=== PATIENT | male | born 1940 | race Caucasian/White ===

== ENCOUNTER 2018-06-10 14:11 | Inpatient (IN) | payer MEDICARE ==
[~2018-06-10] VITALS: Ht 177.8 cm; Wt 100.4 kg
[2018-06-10 15:00] VITALS: BP 140/70
[2018-06-10] MEDS ORDERED: CELE200C PO (15:23)
[2018-06-10] MEDS ORDERED: EMPA25TA PO (15:23)
[2018-06-10] MEDS ORDERED: FURO40TA4 PO (15:23)
[2018-06-10] MEDS ORDERED: ASPI325T8 PO (15:23)
[2018-06-10] MEDS ORDERED: GLIM4TAB2 PO (15:23)
[2018-06-10] MEDS ORDERED: ATOR40TA59 PO (15:23)
[2018-06-10] MEDS ORDERED: VALS1TAB8 PO (15:23)
[2018-06-10] MEDS ORDERED: METF500T16 PO (15:23)
[2018-06-10] MEDS: PIPERACILLIN/TAZOBACTAM 3.375 GM in IV NORMAL SALINE 50ML 50 ML IV SCH (17:19)
[2018-06-10] MEDS ORDERED: VANCOMYCIN 2 GM in IV NORMAL SALINE 500ML BAG 500 ML IV ONE (17:30)
[2018-06-10] MEDS: metFORMIN 500 MG TABLET PO SCH (17:42)
[2018-06-10] MEDS ORDERED: NICOTINE 21MG PATCH. TD PRN (18:45)
[2018-06-10 19:00] VITALS: BP 106/49
[2018-06-10 19:03] LABS: BILIRUBIN,URINE NEGATIVE (NEG); CLARITY,URINE CLEAR; COLOR,URINE YELLOW; NITRITE,URINE NEGATIVE (NEG); PROTEIN,URINE NEGATIVE (NEG-TRACE)
[2018-06-10 19:14] LABS: HYALINE CASTS, URINE MANY /HPF; SQUAMOUS EPITHELIAL CELL,UR MANY /LPF
[2018-06-10 19:15] LABS: BACTERIA,URINE 0 /HPF (0-FEW); WBC,URINE 20-40 /HPF (0-4)
[2018-06-10] MEDS: ATORVASTATIN CALCIUM 40 MG TABLET. PO SCH (21:39)
[2018-06-10 22:05] LABS: BASO # 0.1 x10^3/uL (0.0-0.2); BASO % 1 % (0-3); EOS # 0.2 x10^3/uL (0.0-0.7); EOS % 2 % (0-3); HEMATOCRIT 43.1 % (39.0-53.0); HEMOGLOBIN 14.5 g/dL (13.0-17.5); LYMPH # 1.4 x10^3/uL (1.0-4.8); LYMPH % 13 % (24-48); MEAN CORPUSCULAR HEMOGLOBIN 31 pg (25-35); MEAN CORPUSCULAR HGB CONC 34 g/dL (31-37); MEAN CORPUSCULAR VOLUME 91 fL (79-100); MONO % 10 % (0-9); NEUT % 75 % (31-73); PLATELET COUNT 264 x10^3/uL (140-400); RED BLOOD COUNT 4.74 x10^6/uL (4.30-5.70); RED CELL DISTRIBUTION WIDTH 14.2 % (11.5-14.5); WHITE BLOOD COUNT 10.6 x10^3/uL (4.0-11.0)
--- NOTE | 2018-06-10 22:13 | HP ---
ADMIT DATE: 06/10/2018 CHIEF COMPLAINT AND HISTORY OF PRESENT ILLNESS: This 77-year-old white male is well known to me from followup in the office. The patient presented to the office on the day of admission with a right medial foot ulcer with cellulitis extending up at least two-thirds up the mcmullen. He was admitted feeling bad as well as having chills. He was felt to have a diabetic foot infection with cellulitis and needing more attention than p.o. antibiotics and was admitted for the same. PAST MEDICAL HISTORY: Remarkable for COPD, hypertension, hyperlipidemia, diabetes and arthritis. MEDICATIONS: Medications brought with the patient, listed on the computer and have been addressed. ALLERGIES: He has no known drug allergies. SOCIAL HISTORY: He is a smoker. Denies alcohol or drug abuse. He lives at home alone. FAMILY HISTORY: Noncontributory. REVIEW OF SYSTEMS: As mentioned above. PHYSICAL EXAMINATION: GENERAL: He is a well-developed, well-nourished white male, in no acute distress in the office. VITAL SIGNS: Stable. He is afebrile. HEAD, EYES, EARS, NOSE AND THROAT: Remarkable for glasses. NECK: Supple, without lymphadenopathy or thyromegaly. CHEST: Reveals decreased breath sounds, but clear. HEART: Regular rate and rhythm, without S3, S4, or murmur. ABDOMEN: Soft, nontender, without hepatosplenomegaly or mass. EXTREMITIES: Reveal at least 2.5 x 2.5 cm area on his medial foot distally that appears to be a fluctuant, but is closed. His entire foot is red, extending up at least two-thirds up the way of the mcmullen, consistent with cellulitis. NEUROLOGIC: He is intact. IMPRESSION: 1. Diabetic foot infection with fevers, chills and cellulitis. 2. Other problems as listed above. PLAN: The patient has been admitted. He will be placed on IV vancomycin and Zosyn. Blood cultures will be done, if temperatures are elevated. Consults will be in to Surgery, Orthopedic Surgery as well as ID. Labs including CBC, CMP, sed rate and U/A will be checked and the patient will be monitored, managed and treated appropriately. MERLYN CORDOBA MD DR: NATALIA/iván JOB#: [id number] / [id number]
[2018-06-10 22:38] LABS: ALBUMIN 2.5 g/dL (3.4-5.0); ALBUMIN/GLOBULIN RATIO 0.6 (1.0-1.7); CALCIUM 8.7 mg/dL (8.5-10.1); CREATININE 1.8 mg/dL (0.7-1.3); GFR 36.6; POTASSIUM 3.5 mmol/L (3.5-5.1); TOTAL BILIRUBIN 0.6 mg/dL (0.2-1.0); TOTAL PROTEIN 6.9 g/dL (6.4-8.2)
[2018-06-10 23:00] VITALS: BP 123/61
[2018-06-10] MEDS: VANCOMYCIN PER PHARMACY MC PRN (23:14)
--- NOTE | 2018-06-10 23:16 | NUR ---
Pharmacy Vancomycin Dosing Note S:Consulted to monitor and dose vancomycin started 06/10/18. O:EVONNE DRUMMOND is a 77 year old M with RT FOOT NECROSIS . Height: 5 feet, 10 inches Weight: 91.574871 kg [place] Body Weight: Adjusted Body Weight: Dosing Weight: Actual Other Antibiotics: ZOSYN 3.375GM IV Q6H LABS: Last BUN: 44 Last Creatinine: 1.8 Creatinine Clearance: 37.8 mL/min Last WBC: 10.6 Last Procalcitonin: Tmax (past 24 hours): Microbiology: I/O: Drug Levels: Last level: on at Last dose given at Vancomycin Dosing: Loading Dose: 2000 mg x1 06/10/18 1812 Dosing Weight: Actual Target Trough: 10-20 A: Based on: Actual Wt and CrCl P: 1. 06/11/18 1800 Vancomycin 1500 mg IV q24h 2. Follow up Trough level on 06/12/18 at 1730 3. Pharmacy will continue to monitor, follow and adjust therapy as needed. DESEAN KNIGHT RPH, 06/10/18 2316 Signed: 06/10/18 at 2317 by DESEAN KNIGHT RPH PHA
[2018-06-11] MEDS: PIPERACILLIN/TAZOBACTAM 3.375 GM in IV NORMAL SALINE 50ML 50 ML IV SCH ×5 (00:03→23:27)
[2018-06-11 03:00] VITALS: BP 119/74
[2018-06-11 06:16] LABS: CREATININE 1.8 mg/dL (0.7-1.3); GFR 36.6
[2018-06-11 07:00] VITALS: BP 122/49
[2018-06-11] MEDS: NON FORMULARY ITEM (Empagliflozin (Jardiance) 25 MG) PO SCH (08:02)
[2018-06-11] MEDS: ASPIRIN 325 MG TABLET PO SCH (08:03)
[2018-06-11] MEDS: GLIMEPIRIDE 2 MG TABLET. PO SCH (08:03)
[2018-06-11] MEDS: FUROSEMIDE 40 MG TABLET. PO SCH (08:04)
[2018-06-11] MEDS: CELECOXIB 100 MG CAPSULE. PO SCH (08:04)
[2018-06-11] MEDS: metFORMIN 500 MG TABLET PO SCH ×2 (08:04→17:05)
[2018-06-11] MEDS: LOSARTAN POTASSIUM 50 MG TABLET. PO SCH (09:00)
[2018-06-11] MEDS ORDERED: HYDROCHLOROTHIAZIDE PO SCH (09:00)
[2018-06-11] MEDS ORDERED: VALSARTAN PO SCH (09:00)
--- NOTE | 2018-06-11 09:19 | PDOC2 ---
CONSULT Date of Consult Date of Consult DATE: 06/11/18 TIME: 09:15 Reason for Consult Reason for Consult: Diabetic foot ulcer, right foot Referring Physician Referring Physician: James Identification/Chief Complaint Chief Complaint Right foot and ankle pain Source Source: Chart review, Patient History of Present Illness Reason for Visit: Patient is a 77-year-old diabetic who tells me that over the past 2-3 weeks he has noticed a wound over the medial right forefoot that has subsequently developed some swelling and redness tracking proximally to the distal third of his tibial region. He has not felt any fevers or chills. He tells me he has not had any foot wounds in the past. He does tell me that his toes to get sore at night and that he has some pain in his leg with walking, right greater than left. He does have some neuropathy present at bilateral forefeet, but tells me his sensation is otherwise normal. He has not noticed much drainage from the wound. He cannot think of any antecedent trauma or injuries that precipitated this. He has not been feeling sick, no nausea, no vomiting, no fevers, no chills Current Medications Current Medications Current Medications Aspirin (Kaley Aspirin) 325 mg DAILY PO Last administered on 06/11/18at 08:03; Start 06/11/18 at 09:00 Atorvastatin Calcium (Lipitor) 40 mg HS PO Last administered on 06/10/18at 21:39 ; Start 06/10/18 at 21:00 Furosemide (Lasix) 40 mg DAILY PO Last administered on 06/11/18at 08:04; Start at 09:00 Celecoxib (CeleBREX) 200 mg DAILY PO Last administered on 06/11/18at 08:04; Start 06/11/18 at 09:00 Non-Formulary Medication (Empagliflozin (Jardiance)) 25 mg DAILY PO ; Start 06/11 at 09:00; Status UNV Glimepiride (Amaryl) 4 mg DAILY PO Last administered on 06/11/18at 08:03; Start 06/11/18 at 09:00 Metformin HCl (Glucophage) 500 mg BIDWMEALS PO Last administered on 06/11/18at 08 :04; Start 06/10/18 at 17:30 Non-Formulary Medication (Valsartan/ Hydrochlorothiazide (Diovan Hct 160-12.5 Mg Tab)) 1 each DAILY PO ; Start 06/11/18 at 09:00; Status UNV Piperacillin Sod/ Tazobactam Sod 3.375 gm/Sodium Chloride 50 ml @ 100 mls/hr Q6HRS IV Last administered on 06/11/18at 06:58; Start 06/10/18 at 17:30 Vancomycin HCl (Vanco Per Pharmacy) 1 each PRN DAILY PRN MC SEE COMMENTS Last administered on 06/10/18at 23:14; Start 06/10/18 at 16:45 Vancomycin HCl 2 gm/Sodium Chloride 500 ml @ 250 mls/hr 1X ONCE IV Last administered on 06/10/18at 18:12; Start 06/10/18 at 17:30; Stop 06/10/18 at 19:29; Status DC Losartan Potassium (Cozaar) 100 mg DAILY PO ; Start 06/11/18 at 09:00 Hydrochlorothiazide (Microzide) 12.5 mg DAILY PO ; Start 06/11/18 at 09:00 Nicotine (Nicoderm Cq 21mg) 1 patch PRN DAILY PRN TD SMOKING CESSATION; Start 06/10/18 at 18:45 Vancomycin HCl 1.5 gm/Sodium Chloride 500 ml @ 250 mls/hr Q24H IV ; Start at 18:00 Vancomycin HCl (Vancomycin Trough Level) 1 each 1X ONCE MC ; Start 06/12/18 at 17:30; Stop 06/12/18 at 17:31 Active Scripts Active Reported Aspirin 325 Mg Tablet 325 Mg PO DAILY Celebrex (Celecoxib) 200 Mg Capsule 200 Mg PO DAILY 30 Days Furosemide 40 Mg Tablet 40 Mg PO DAILY Diovan Hct 160-12.5 Mg Tab (Valsartan/Hydrochlorothiazide) 1 Each Tablet 1 Each PO DAILY Atorvastatin Calcium 40 Mg Tablet 40 Mg PO HS Jardiance (Empagliflozin) 25 Mg Tablet 25 Mg PO DAILY Glimepiride 4 Mg Tablet 4 Mg PO DAILY Metformin Hcl 500 Mg Tablet 500 Mg PO BIDWMEALS Allergies Allergies: Coded Allergies: No Known Drug Allergies (Unverified , 06/10/18) ROS General: No: Chills, Night Sweats, Fatigue, Malaise, Appetite, Other PSYCHOLOGICAL ROS: No: Anxiety, Behavioral Disorder, Concentration difficultie , Decreased libido, Depression, Disorientation, Hallucinations, Hostility, Irritablity, Memory difficulties, Mood Swings, Obsessive thoughts, Physical abuse, Sexual abuse, Sleep disturbances, Suicidal ideation, Other Eyes: No Blurry vision, No Decreased vision, No Double vision, No Dry eyes, No Excessive tearing, No Eye Pain, No Itchy Eyes, No Loss of vision, No Photophobia , No Scotomata, No Uses contacts, No Uses glasses, No Other HEENT: No: Heacaches, Visual Changes, Hearing change, Nasal congestion, Nasal discharge, Oral lesions, Sinus pain, Sore Throat, Epistaxis, Sneezing, Snoring, Tinnitus, Vertigo, Vocal changes, Other ALLERGY AND IMMUNOLOGY: No: Hives, Insect Bite Sensitivity, Itchy/Watery Eyes, Nasal Congestion, Post Nasal Drip, Seasonal Allergies, Other Hematological and Lymphatic: No: Bleeding Problems, Blood Clots, Blood Transfusions, Brusing, Night Sweats, Pallor, Swollen Lymph Nodes, Other Respiratory: No: Cough, Hemoptysis, Orthopnea, Pleuritic Pain, Shortness of breath, SOB with excertion, Sputum Changes, Stridor, Tachypnea, Wheezing, Other Cardiovascular: No Chest Pain, No Palpitations, No Orthopnea, No Paroxysmal Noc. Dyspnea, No Edema, No Lt Headedness, No Other Gastrointestinal: No Nausea, No Vomiting, No Abdominal Pain, No Diarrhea, No Constipation, No Melena, No Hematochezia, No Other Genitourinary: No Dysuria, No Frequency, No Incontinence, No Hematuria, No Retention, No Discharge, No Urgency, No Pain, No Flank Pain, No Other, No , No , No , No , No , No , No Musculoskeletal: Yes Joint Swelling Neurological: Yes Numbness/Tingling Physical Exam General: Alert, Oriented X3, No acute distress HEENT: Atraumatic, EOMI Lungs: Other (respirations aren't labored with symmetric chest rise.) Heart: Regular rate Abdomen: Soft, No tenderness Extremities: Other (edema and cellulitis are present from the medial and dorsal aspect of his foot up to the anterior medial aspect of his distal third tibial region.) Neuro: Normal speech, Strength at 5/5 X4 ext, Other (decreased sensation to light touch bilateral forefeet) MUSCULOSKELETAL: Other (examination of his bilateral lower extremities reveals atrophic changes at his toes. He can wiggle his toes. Right lower extremity has the edema and cellulitis is noted above. He has approximately a 2 x 3 cm wound, unable to probe to bone, surrounding erythema and edema, no obvious fluctuant areas. No drainage noted. I am not able to palpate dorsalis pedis pulse on this side. This could be secondary to the edema.) Vitals VITALS Vital Signs Date Time Temp Pulse Resp B/P (MAP) Pulse Ox O2 Delivery O2 Flow Rate FiO2 06/11/18 07:00 98.5 78 18 122/49 (73) 92 Room Air 98.5 Labs Labs Laboratory Tests Test 06/10/18 16:54 06/10/18 18:40 06/10/18 20:45 06/10/18 21:45 Glucose (Fingerstick) 203 mg/dL (70-99) 209 mg/dL (70-99) Urine Collection Type Unknown Urine Color Yellow Urine Clarity Clear Urine pH 5.0 Urine Specific [place] 1.020 Urine Protein Negative mg/dL (NEG-TRACE) Urine Glucose (UA) >=1000 mg/dL (NEG) Urine Ketones (Stick) Negative mg/dL (NEG) Urine Blood Negative (NEG) Urine Nitrite Negative (NEG) Urine Bilirubin Negative (NEG) Urine Urobilinogen Dipstick 1.0 mg/dL (0.2 mg/dL) Urine Leukocyte Esterase Negative (NEG) Urine RBC 3-5 /HPF (0-2) Urine WBC 20-40 /HPF (0-4) Urine Squamous Epithelial Cells Many /LPF Urine Transitional Epithelial Cells Few /LPF Urine Renal Epithelial Cells Occ /LPF Urine Bacteria 0 /HPF (0-FEW) Urine Hyaline Casts Many /HPF Urine Mucus Mod /LPF White Blood Count 10.6 x10^3/uL (4.0-11.0) Red Blood Count 4.74 x10^6/uL (4.30-5.70) Hemoglobin 14.5 g/dL (13.0-17.5) Hematocrit 43.1 % (39.0-53.0) Mean Corpuscular Volume 91 fL (79-100) Mean Corpuscular Hemoglobin 31 pg (25-35) Mean Corpuscular Hemoglobin Concent 34 g/dL (31-37) Red Cell Distribution Width 14.2 % (11.5-14.5) Platelet Count 264 x10^3/uL (140-400) Neutrophils (%) (Auto) 75 % (31-73) Lymphocytes (%) (Auto) 13 % (24-48) Monocytes (%) (Auto) 10 % (0-9) Eosinophils (%) (Auto) 2 % (0-3) Basophils (%) (Auto) 1 % (0-3) Neutrophils # (Auto) 8.0 x10^3uL (1.8-7.7) Lymphocytes # (Auto) 1.4 x10^3/uL (1.0-4.8) Monocytes # (Auto) 1.0 x10^3/uL (0.0-1.1) Eosinophils # (Auto) 0.2 x10^3/uL (0.0-0.7) Basophils # (Auto) 0.1 x10^3/uL (0.0-0.2) Erythrocyte Sedimentation Rate 54 (0-15) Sodium Level 135 mmol/L (136-145) Potassium Level 3.5 mmol/L (3.5-5.1) Chloride Level 99 mmol/L (98-107) Carbon Dioxide Level 24 mmol/L (21-32) Anion Gap 12 (6-14) Blood Urea Nitrogen 44 mg/dL (8-26) Creatinine 1.8 mg/dL (0.7-1.3) Estimated GFR (Cockcroft-Gault) 36.6 BUN/Creatinine Ratio 24 (6-20) Glucose Level 181 mg/dL (70-99) Calcium Level 8.7 mg/dL (8.5-10.1) Total Bilirubin 0.6 mg/dL (0.2-1.0) Aspartate Amino Transf (AST/SGOT) 12 U/L (15-37) Alanine Aminotransferase (ALT/SGPT) 15 U/L (16-63) Alkaline Phosphatase 98 U/L (46-116) Total Protein 6.9 g/dL (6.4-8.2) Albumin 2.5 g/dL (3.4-5.0) Albumin/Globulin Ratio 0.6 (1.0-1.7) Test 06/11/18 04:45 06/11/18 08:03 Blood Urea Nitrogen 41 mg/dL (8-26) Creatinine 1.8 mg/dL (0.7-1.3) Estimated GFR (Cockcroft-Gault) 36.6 Procalcitonin < 0.10 ng/mL (0.00-0.10) Glucose (Fingerstick) 108 mg/dL (70-99) Laboratory Tests Test 06/10/18 16:54 06/10/18 18:40 06/10/18 20:45 06/10/18 21:45 Glucose (Fingerstick) 203 mg/dL (70-99) 209 mg/dL (70-99) Urine Collection Type Unknown Urine Color Yellow Urine Clarity Clear Urine pH 5.0 Urine Specific [place] 1.020 Urine Protein Negative mg/dL (NEG-TRACE) Urine Glucose (UA) >=1000 mg/dL (NEG) Urine Ketones (Stick) Negative mg/dL (NEG) Urine Blood Negative (NEG) Urine Nitrite Negative (NEG) Urine Bilirubin Negative (NEG) Urine Urobilinogen Dipstick 1.0 mg/dL (0.2 mg/dL) Urine Leukocyte Esterase Negative (NEG) Urine RBC 3-5 /HPF (0-2) Urine WBC 20-40 /HPF (0-4) Urine Squamous Epithelial Cells Many /LPF Urine Transitional Epithelial Cells Few /LPF Urine Renal Epithelial Cells Occ /LPF Urine Bacteria 0 /HPF (0-FEW) Urine Hyaline Casts Many /HPF Urine Mucus Mod /LPF White Blood Count 10.6 x10^3/uL (4.0-11.0) Red Blood Count 4.74 x10^6/uL (4.30-5.70) Hemoglobin 14.5 g/dL (13.0-17.5) Hematocrit 43.1 % (39.0-53.0) Mean Corpuscular Volume 91 fL (79-100) Mean Corpuscular Hemoglobin 31 pg (25-35) Mean Corpuscular Hemoglobin Concent 34 g/dL (31-37) Red Cell Distribution Width 14.2 % (11.5-14.5) Platelet Count 264 x10^3/uL (140-400) Neutrophils (%) (Auto) 75 % (31-73) Lymphocytes (%) (Auto) 13 % (24-48) Monocytes (%) (Auto) 10 % (0-9) Eosinophils (%) (Auto) 2 % (0-3) Basophils (%) (Auto) 1 % (0-3) Neutrophils # (Auto) 8.0 x10^3uL (1.8-7.7) Lymphocytes # (Auto) 1.4 x10^3/uL (1.0-4.8) Monocytes # (Auto) 1.0 x10^3/uL (0.0-1.1) Eosinophils # (Auto) 0.2 x10^3/uL (0.0-0.7) Basophils # (Auto) 0.1 x10^3/uL (0.0-0.2) Erythrocyte Sedimentation Rate 54 (0-15) Sodium Level 135 mmol/L (136-145) Potassium Level 3.5 mmol/L (3.5-5.1) Chloride Level 99 mmol/L (98-107) Carbon Dioxide Level 24 mmol/L (21-32) Anion Gap 12 (6-14) Blood Urea Nitrogen 44 mg/dL (8-26) Creatinine 1.8 mg/dL (0.7-1.3) Estimated GFR (Cockcroft-Gault) 36.6 BUN/Creatinine Ratio 24 (6-20) Glucose Level 181 mg/dL (70-99) Calcium Level 8.7 mg/dL (8.5-10.1) Total Bilirubin 0.6 mg/dL (0.2-1.0) Aspartate Amino Transf (AST/SGOT) 12 U/L (15-37) Alanine Aminotransferase (ALT/SGPT) 15 U/L (16-63) Alkaline Phosphatase 98 U/L (46-116) Total Protein 6.9 g/dL (6.4-8.2) Albumin 2.5 g/dL (3.4-5.0) Albumin/Globulin Ratio 0.6 (1.0-1.7) Test 06/11/18 04:45 06/11/18 08:03 Blood Urea Nitrogen 41 mg/dL (8-26) Creatinine 1.8 mg/dL (0.7-1.3) Estimated GFR (Cockcroft-Gault) 36.6 Procalcitonin < 0.10 ng/mL (0.00-0.10) Glucose (Fingerstick) 108 mg/dL (70-99) Assessment/Plan Assessment/Plan I will order x-rays, possibly an MRI to investigate for osteomyelitis. I think he also needs a vascular workup done. Pending the results of the ABIs have ordered, we may need to ask vascular surgery to evaluate him. Tentatively, I will perform an irrigation and debridement, likely wound VAC, tomorrow morning. KATTY MANSFIELD II, MD Jun 11, 2018 09:19
--- NOTE | 2018-06-11 10:35 | PDOC ---
Infectious Disease Note Vital Sign Vital Signs Vital Signs Date Time Temp Pulse Resp B/P (MAP) Pulse Ox O2 Delivery O2 Flow Rate FiO2 06/11/18 08:00 Room Air 06/11/18 07:00 98.5 78 18 122/49 (73) 92 98.5 Labs Lab Laboratory Tests Test 06/10/18 16:54 06/10/18 18:40 06/10/18 20:45 06/10/18 21:45 Glucose (Fingerstick) 203 mg/dL (70-99) 209 mg/dL (70-99) Urine Collection Type Unknown Urine Color Yellow Urine Clarity Clear Urine pH 5.0 Urine Specific [place] 1.020 Urine Protein Negative mg/dL (NEG-TRACE) Urine Glucose (UA) >=1000 mg/dL (NEG) Urine Ketones (Stick) Negative mg/dL (NEG) Urine Blood Negative (NEG) Urine Nitrite Negative (NEG) Urine Bilirubin Negative (NEG) Urine Urobilinogen Dipstick 1.0 mg/dL (0.2 mg/dL) Urine Leukocyte Esterase Negative (NEG) Urine RBC 3-5 /HPF (0-2) Urine WBC 20-40 /HPF (0-4) Urine Squamous Epithelial Cells Many /LPF Urine Transitional Epithelial Cells Few /LPF Urine Renal Epithelial Cells Occ /LPF Urine Bacteria 0 /HPF (0-FEW) Urine Hyaline Casts Many /HPF Urine Mucus Mod /LPF White Blood Count 10.6 x10^3/uL (4.0-11.0) Red Blood Count 4.74 x10^6/uL (4.30-5.70) Hemoglobin 14.5 g/dL (13.0-17.5) Hematocrit 43.1 % (39.0-53.0) Mean Corpuscular Volume 91 fL (79-100) Mean Corpuscular Hemoglobin 31 pg (25-35) Mean Corpuscular Hemoglobin Concent 34 g/dL (31-37) Red Cell Distribution Width 14.2 % (11.5-14.5) Platelet Count 264 x10^3/uL (140-400) Neutrophils (%) (Auto) 75 % (31-73) Lymphocytes (%) (Auto) 13 % (24-48) Monocytes (%) (Auto) 10 % (0-9) Eosinophils (%) (Auto) 2 % (0-3) Basophils (%) (Auto) 1 % (0-3) Neutrophils # (Auto) 8.0 x10^3uL (1.8-7.7) Lymphocytes # (Auto) 1.4 x10^3/uL (1.0-4.8) Monocytes # (Auto) 1.0 x10^3/uL (0.0-1.1) Eosinophils # (Auto) 0.2 x10^3/uL (0.0-0.7) Basophils # (Auto) 0.1 x10^3/uL (0.0-0.2) Erythrocyte Sedimentation Rate 54 (0-15) Sodium Level 135 mmol/L (136-145) Potassium Level 3.5 mmol/L (3.5-5.1) Chloride Level 99 mmol/L (98-107) Carbon Dioxide Level 24 mmol/L (21-32) Anion Gap 12 (6-14) Blood Urea Nitrogen 44 mg/dL (8-26) Creatinine 1.8 mg/dL (0.7-1.3) Estimated GFR (Cockcroft-Gault) 36.6 BUN/Creatinine Ratio 24 (6-20) Glucose Level 181 mg/dL (70-99) Calcium Level 8.7 mg/dL (8.5-10.1) Total Bilirubin 0.6 mg/dL (0.2-1.0) Aspartate Amino Transf (AST/SGOT) 12 U/L (15-37) Alanine Aminotransferase (ALT/SGPT) 15 U/L (16-63) Alkaline Phosphatase 98 U/L (46-116) Total Protein 6.9 g/dL (6.4-8.2) Albumin 2.5 g/dL (3.4-5.0) Albumin/Globulin Ratio 0.6 (1.0-1.7) Test 06/11/18 04:45 06/11/18 08:03 Blood Urea Nitrogen 41 mg/dL (8-26) Creatinine 1.8 mg/dL (0.7-1.3) Estimated GFR (Cockcroft-Gault) 36.6 Procalcitonin < 0.10 ng/mL (0.00-0.10) Glucose (Fingerstick) 108 mg/dL (70-99) Objective Assessment Diabetic ulcer right foot with cellulitis , ? depth Diabetes with peripheral neuropathy Renal insufficiency Tobacco dependency HLD HTN COPD PAD Plan Plan of Care vanc and Zosyn Monitor labs/temp/renal function closely Local wound care I and D per ortho tomorrow, request cultures f/u x-ray and SARTHAK arterial studies Supportive care Vascular consulted D/w RN Thank you [id number] Patient seen, examined, I agree with above. Assessment and plan was coformulated with STRATEGIC ACCOUNT DIRECTOR. CHRISTIAN CHOPRA APRN Jun 11, 2018 10:35 GABRIELA HERNANDEZ MD Jun 11, 2018 15:59
[2018-06-11 11:00] VITALS: BP 112/48
[2018-06-11] MEDS: hydroCHLOROthiazide 12.5 MG CAPSULE PO SCH (11:53)
--- NOTE | 2018-06-11 12:37 | RAD ---
Bilateral lower extremity arterial Doppler ultrasound HISTORY: rt foot wound TECHNIQUE: Color Doppler, grayscale and duplex analysis performed of the right and left lower extremity arterial structures, from the common femoral artery through the runoff vessels. COMPARISON: None are available All velocity measurements are in centimeters per second. Right leg: Right common femoral artery is patent with peak systolic velocity of 167. Flow is not documented in the right superficial femoral artery compatible with occlusion. Popliteal artery flow can't be documented with a peak systolic velocity of 20. Anterior tibial artery and dorsalis pedis arteries demonstrate trace amount of flow, with velocities of 10 and 5 respectively. The posterior tibial artery also appears occluded. Monophasic waveforms are seen throughout the patent vessels. Left peroneal artery not visualized. Left leg: Monophasic waveforms are identified throughout. No evidence of occlusion, left. Velocities in the femoropopliteal arteries range from 44 through 127. Deep femoral artery velocity 161. Velocities at the popliteal artery and calf range from 17 through 44. Right peroneal artery not visualized. IMPRESSION: 1. 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 2. Diffuse monophasic waveforms compatible with atherosclerotic disease. Electronically signed by: Delvin Mosqeura MD (06/11/2018 12:34 PM) [facility]
[2018-06-11] MEDS: VANCOMYCIN PER PHARMACY MC PRN (13:46)
--- NOTE | 2018-06-11 13:56 | NUR ---
SW following pt for anticipated dc needs. Chart reviewed. Pt lives at home alone. Sx, Orthopedic Sx and ID consulted. No discharge recommendations noted at this time. SW will continue to assess discharge needs.
[2018-06-11 15:00] VITALS: BP 130/61
--- NOTE | 2018-06-11 15:21 | RAD ---
EXAM: Right foot, 3 views. HISTORY: Plantar foot wound. COMPARISON: None. FINDINGS: 3 views of the right foot are obtained. There is no fracture, dislocation or subluxation. There is no radiographic evidence of osteomyelitis. There is slight lucency at the medial base of the fifth proximal phalanx on a single projection. However, the cortex appears to be intact. There is a tiny plantar spur. IMPRESSION: 1. No acute osseous finding. 2. No convincing radiographic evidence of osteomyelitis. Note is made that MRI may be useful if there is concern for radiographic occult osteolysis. Electronically signed by: Mayda Morales MD (06/11/2018 3:18 PM) [facility]
[2018-06-11] MEDS ORDERED: VANCOMYCIN 1.5 GM in IV NORMAL SALINE 500ML BAG 500 ML IV SCH (18:00)
[2018-06-11 19:00] VITALS: BP 120/55
[2018-06-11] MEDS: ATORVASTATIN CALCIUM 40 MG TABLET. PO SCH (21:24)
--- NOTE | 2018-06-11 21:54 | CONS ---
DATE OF CONSULTATION: 06/11/2018 REFERRING PHYSICIAN: Dr. Ramirez. REASON FOR CONSULTATION: Diabetic foot wound. HISTORY OF PRESENT ILLNESS: This patient is a 77-year-old male with a PMH of diabetes with peripheral neuropathy, who about 2 weeks ago explains this his power went out. During that time, he remained bundled up just to keep warm. After 3 days, he took his socks off and noticed that on the medial side of his right foot was white with black spot. He later developed swelling, pain and redness of his foot extending up his lower leg. He denies fevers, chills, sweats or body aches. He denies trauma or tight fitting shoes, though he says his socks may has been a bit too tight. He normally wears moccasins. He denies pets and has carpet. On admission, he was afebrile with a normal white blood cell count and a sed rate of 54. X-ray of the right foot has been ordered along with SARTHAK arterial studies. He was evaluated by Dr. North with plans for an irrigation and debridement tomorrow. He is currently on vancomycin and Zosyn. PAST MEDICAL HISTORY: Diabetes mellitus, peripheral neuropathy, hyperlipidemia, COPD, and hypertension. FAMILY HISTORY: Positive for diabetes. SOCIAL HISTORY: The patient lives at home. He does not have any pets. He is a current smoker. ALLERGIES: No known drug allergies. MEDICATIONS: Vancomycin, Zosyn. Other medications are available and have been reviewed on the JUN. REVIEW OF SYSTEMS: Per HPI. Otherwise all other review of systems are negative. PHYSICAL EXAMINATION: VITAL SIGNS: Temperature 98.5, blood pressure 122/49, heart rate 78, respiratory rate 18, pulse oximetry is 92% on room air. BMI 28. GENERAL: The patient is resting quietly, appears comfortable. HEENT: Normal conjunctivae. Oral cavity: Pharynx pink and moist. LUNGS: Clear to auscultation. HEART: S1, S2. ABDOMEN: Nondistended, soft and nontender with bowel sounds present. EXTREMITIES: Unremarkable except right foot swollen and red extending to mid ankle. He has a callus medial MT area with black eschar in the center. DP difficult to palpate. SKIN: Warm without rash. NEUROLOGIC: Arouses easily to name and responds appropriately. LABORATORY DATA: Recent WBC 10.6, hemoglobin 14.5, platelets 264,000. Sed rate 54. Sodium 135, potassium 3.5, BUN 41, creatinine 1.8, glucose 181, total bilirubin 0.6, AST 12, ALT 15, albumin 2.5. Procalcitonin less than 0.10. Urinalysis unremarkable for infection. X-ray right foot and SARTHAK arterial study pending. IMPRESSION: 1. Diabetic ulcer, right foot with cellulitis. 2. Diabetes with peripheral neuropathy. 3. Renal insufficiency. 4. Tobacco dependency. 5. Hyperlipidemia. 6. Hypertension. 7. Chronic obstructive pulmonary disease. 8. PAD PLAN: Continue vancomycin and Zosyn for now. Monitor labs, temperature and renal function closely. Local wound care. He is scheduled to have irrigation and debridement tomorrow per Dr. North.Vascular has been consulted. Supportive care. Discussed with nursing. Thank you, Dr. Ramirez, for asking us to participate in this patient's care. Should you have further questions or concerns, please call. GABRIELA HERNANDEZ MD DR: YUDITH/iván JOB#: [id number] / [id number] ANA
[2018-06-11 22:50] VITALS: BP 120/52
[2018-06-12 03:00] VITALS: BP 122/49
--- NOTE | 2018-06-12 03:10 | PN ---
DATE: 06/11/2018 SUBJECTIVE: The patient is awake, alert, wishes that he could be at home. Denies any specific complaints. OBJECTIVE: Vital signs are stable. He has been afebrile since admission. LABORATORY DATA: White count on admission is 10,600 with left shift. Chemistries reveal a creatinine of 1.8, which I believe is higher than the office, which I will have to check. Albumin is 2.5. Procalcitonin is less than 0.10. Sugars have been decent since admission. Sed rate is elevated at 54. Urinalysis shows number of white cells, but no bacteria and leukocyte esterase and nitrite negative. PHYSICAL EXAMINATION: CHEST: Clear. HEART: Regular. ABDOMEN: Benign. EXTREMITIES: Leg is definitely less swollen, less red. Still has medially a callus with likely underlying abscess. Ortho has seen him and ordered arterial Dopplers as well as plain films of the right foot, which are pending at this point in time. IMPRESSION: Diabetic ulcer, right foot with cellulitis; peripheral neuropathy; renal insufficiency; hypertension; chronic obstructive pulmonary disease; hyperlipidemia; diabetes. PLAN: Continue vancomycin and Zosyn. ID and Ortho consult are in. Blood cultures have been added for temperature greater than 100.5. I and D likely to happen by Ortho. X-ray and arterial Doppler studies pending at this point in time to evaluate for PAD and osteomyelitis. MERLYN CORDOBA MD DR: NATALIA/iván JOB#: [id number] / [id number]
[2018-06-12] MEDS: PIPERACILLIN/TAZOBACTAM 3.375 GM in IV NORMAL SALINE 50ML 50 ML IV SCH ×3 (05:15→17:24)
[2018-06-12 06:06] LABS: GFR 32.4
[2018-06-12 07:00] VITALS: BP 111/27
[2018-06-12] MEDS ORDERED: fentaNYL PF VIAL 100 MCG/2 ML VIAL IV PRN ×2 (07:00)
[2018-06-12] MEDS ORDERED: PROCHLORPERAZINE 10 MG/2 ML VIAL. IV PRN (07:00)
[2018-06-12] MEDS ORDERED: IV RINGERS,LACTATED 1000ML 1,000 ML IV SCH (07:00)
[2018-06-12] MEDS ORDERED: ONDANSETRON PF 4 MG/2 ML VIAL. IV PRN (07:00)
[2018-06-12] MEDS ORDERED: LIDOCAINE 1% PF 2 ML VIAL. ID PRN (07:00)
[2018-06-12] MEDS ORDERED: MORPHINE SULFATE 2 MG/ML VIAL. IV PRN (07:00)
[2018-06-12] MEDS ORDERED: HYDROmorphone 2 MG/ML VIAL IV PRN (07:00)
[2018-06-12] MEDS: NON FORMULARY ITEM (Empagliflozin (Jardiance) 25 MG) PO SCH (07:05)
[2018-06-12] MEDS ORDERED: PROPOFOL 20 ML IV ONE (07:48)
[2018-06-12] MEDS ORDERED: LIDOCAINE 2% PF 5 ML VIAL. ONE (07:48)
[2018-06-12] MEDS ORDERED: fentaNYL PF VIAL 100 MCG/2 ML VIAL ONE (08:11)
--- NOTE | 2018-06-12 08:12 | PDOC4 ---
Operative Note Operative Note Date of procedure: 06/12/2018 Surgeon: Julio Cesar Mansfield Preoperative diagnosis: Right foot wound with cellulitis Postoperative diagnosis: Same Procedure performed: #1 irrigation and debridement, excisional, skin and subcutaneous tissue, right foot wound #2 application of wound VAC to wound about 25 cm Anesthesia: Gen. Findings: Necrotic skin, minimal bleeding from peripheral tissue after excisional debridement, the wound tracked under his first MTP joint to his first webspace, there was really no gross purulence here though. The wound did not go all the way down to bone. Blood loss: 5 mL Specimens: Swabs sent for culture, tissue sent for culture Complications: None Reason for procedure: Patient is a pleasant 77-year-old woman who noticed a foot wound that has been worsening acutely over the past couple weeks with erythema spreading proximally. I was asked to see him in consultation regarding this. Please see my inpatient consult note. Because of the cellulitic changes, edema, and wound we had a discussion of the risks, benefits, and alternatives to the above procedure. As part of his workup, I discussed with him that if vascular surgery would also need to evaluate him for his peripheral vascular disease. Description of procedure: Patient was greeted in the preoperative area by myself for the correct extremity was verified and marked. He is taken back to the operative suite and his antibiotics were started as brought back. Once in the operative room, he was transferred gently supine to the operating table and secured to the bed with all pressure points padded. Underwent successful induction of a general anesthetic. The right lower extremity was then prepped and draped in our usual sterile fashion using Betadine paint. We conducted our standard preoperative timeout. I then began the procedure by using a Rominger to remove the callused skin surrounding the wound to more fully appreciated. I then used a combination of scalpel and Rominger to debride the necrotic appearing skin and some of the underlying subcutaneous tissue. I explored the wound with a hemostat it did not track dorsally or proximally or into his plantar foot. It did track as above to his first webspace. I then irrigated the wound out, took my cultures, and then removed a little bit more necrotic tissue after irrigation. I follow this with irrigating everything out again. The foot was then dried and I fashioned a wound VAC to include the small area between his first webspace. I placed a small VAC sponge here followed by a second one over the majority of the bone. I created a VAC sponge tunnel on his skin to the dorsum of his foot and connected this to the wound VAC. It had a good seal. Patient was then awakened from anesthesia and transferred gently supine to the recovery room cart and taken to PACU in a stable and extubated condition. Postoperative plan is to readmitted to the floor. Antibiotics per infectious disease. I recommend nonweightbearing right lower extremity. We will await vascular surgery evaluation to see if there is any interventions they can offer this patient. JULIO CESAR MANSFIELD II, MD Jun 12, 2018 08:12
[2018-06-12] MEDS ORDERED: SEVOFLURANE 16 TO 30 MINUTES. IH ONE (08:20)
[2018-06-12] MEDS ORDERED: DEXAMETHASONE SOD PHOS 20 MG/5 ML VIAL. ONE (08:20)
[2018-06-12] MEDS ORDERED: ONDANSETRON PF 4 MG/2 ML VIAL. ONE (08:20)
[2018-06-12] MEDS: hydroCHLOROthiazide 12.5 MG CAPSULE PO SCH (09:00)
[2018-06-12] MEDS: FUROSEMIDE 40 MG TABLET. PO SCH (09:00)
[2018-06-12] MEDS: LOSARTAN POTASSIUM 50 MG TABLET. PO SCH (09:00)
[2018-06-12] MEDS: metFORMIN 500 MG TABLET PO SCH ×2 (09:45→17:24)
[2018-06-12] MEDS: CELECOXIB 100 MG CAPSULE. PO SCH (09:45)
[2018-06-12] MEDS: ASPIRIN 325 MG TABLET PO SCH (09:46)
[2018-06-12] MEDS: GLIMEPIRIDE 2 MG TABLET. PO SCH (09:46)
--- NOTE | 2018-06-12 10:31 | PDOC ---
Infectious Disease Note Subjective Subjective s/p I and D this morning Pain controlled Denies N/V/F/C/SOA ROS ROS per HPI Vital Sign Vital Signs Vital Signs Date Time Temp Pulse Resp B/P (MAP) Pulse Ox O2 Delivery O2 Flow Rate FiO2 06/12/18 09:15 98.8 70 18 99/48 95 Nasal Cannula 3 98.8 Physical Exam PHYSICAL EXAM GENERAL: Propped up in bed, alert, eating HEENT: Normal conjunctivae. Oral cavity: Pharynx pink and moist. LUNGS: Clear to auscultation. HEART: S1, S2. ABDOMEN: Nondistended, soft and nontender with bowel sounds present. EXTREMITIES: Unremarkable except right foot swollen and red extending to mid ankle. Wound vac in place SKIN: Warm without rash. NEUROLOGIC: Alert, responds appropriately. PIV Labs Lab Laboratory Tests Test 06/11/18 11:54 06/11/18 17:03 06/11/18 20:39 06/12/18 05:00 Glucose (Fingerstick) 173 mg/dL (70-99) 206 mg/dL (70-99) 185 mg/dL (70-99) Creatinine 2.0 mg/dL (0.7-1.3) Estimated GFR (Cockcroft-Gault) 32.4 Test 06/12/18 07:31 06/12/18 08:56 Glucose (Fingerstick) 124 mg/dL (70-99) 126 mg/dL (70-99) Objective Assessment Diabetic ulcer right foot with cellulitis, s/p I and D, excisional, skin and subcutaneous tissue by Dr. North, 06/12, intra-op cultures pending Diabetes with peripheral neuropathy Renal insufficiency Tobacco dependency HLD HTN COPD Plan Plan of Care Continue Zosyn, Switch vanc to Dapto, d/w Dr. Garrett Hernandez Awaiting intra-op culture results am labs Local wound care Supportive care Awaiting Vascular evaluation Patient seen, examined, I agree with above. Assessment and plan was formulated with [employer] SALES MANAGER. CHRISTIAN CHOPRA APRN Jun 12, 2018 10:31 GABRIELA HERNANDEZ MD Jun 12, 2018 14:40
[2018-06-12] MEDS: VANCOMYCIN PER PHARMACY MC PRN (10:52)
[2018-06-12 11:00] VITALS: BP 117/50
[2018-06-12] MEDS ORDERED: DAPTOmycin (GENERIC) IVPB 540 MG in IV NORMAL SALINE 50ML 50 ML IV SCH (14:00)
[2018-06-12 15:00] VITALS: BP 113/47
[2018-06-12] MEDS: DAPTOmycin (GENERIC) IVPB 500 MG in IV NORMAL SALINE 50ML 50 ML IV SCH (16:27)
[2018-06-12 19:00] VITALS: BP 137/63
[2018-06-12] MEDS: ATORVASTATIN CALCIUM 40 MG TABLET. PO SCH (20:59)
[2018-06-12] MEDS: LACTOBACILLUS RHAMNOSUS GG 1 CAPSULE. PO SCH (20:59)
--- NOTE | 2018-06-12 21:15 | NUR ---
Paged Dr Sanchez re: glucose of 327. Pt is on 3 antiDM po meds but one, Jardiance, pharmacy doesnt carry. Dr. Sanchez said to ask pharmacy about it. Talked to Adan, pharmacist and said to have pt/family bring the med. Will inform pt. Received order fr Dr sanchez to give one time 5 units of humalog.
[2018-06-12] MEDS ORDERED: INSULIN LISPRO 300 UNITS/3 ML INSULN.PEN. SQ ONE (21:30)
[2018-06-12 23:00] VITALS: BP 128/66
[2018-06-13] MEDS: PIPERACILLIN/TAZOBACTAM 3.375 GM in IV NORMAL SALINE 50ML 50 ML IV SCH ×4 (00:02→18:06)
--- NOTE | 2018-06-13 01:00 | NUR ---
TRANSFER NOTE: Patient was transferred from room 534 to room 588 at approximately 0100. All belongings present. Patient has no complaints at this time. Will continue to monitor.
--- NOTE | 2018-06-13 01:34 | PN ---
DATE: 06/12/2018 LOCATION: He is in room 534. SUBJECTIVE: The patient is awake, alert, getting ready to eat breakfast. Has had debridement of his foot already this morning with operative report showing it to be not down to the bone and tracking a little bit under the first metatarsophalangeal joint to the webspace with no real purulence, but cultures were obtained. OBJECTIVE: VITAL SIGNS: Stable. His T-max is 99.7. CHEST: Clear. HEART: Regular. ABDOMEN: Benign. EXTREMITIES: The cellulitic changes of right leg have decreased. Wound VAC is present over the medial right foot distally near the MTP joint area. He is on oxygen following surgery at 3 liters per nasal cannula. Foot x-ray showed no evidence of osteomyelitis yesterday. Arterial Dopplers, however, showed evidence of right superficial femoral artery occlusion and right posterior tibial artery occlusion with diffuse monophasic waveforms compatible with atherosclerotic disease. Vascular Surgery has been consulted and will be seeing him regarding the same. IMPRESSION: 1. Right diabetic foot ulcer, status post debridement. 2. Peripheral arterial disease. 3. Diabetes. 4. Smoking history. PLAN: Continue antibiotics, await cultures. Await Vascular Surgery evaluation, otherwise same. MERLYN CORDOBA MD DR: NATALIA/iván JOB#: [id number] / [id number]
[2018-06-13 03:00] VITALS: BP 107/50
[2018-06-13 07:00] VITALS: BP 120/47
[2018-06-13] MEDS: LOSARTAN POTASSIUM 50 MG TABLET. PO SCH (09:13)
[2018-06-13] MEDS: CELECOXIB 100 MG CAPSULE. PO SCH (09:13)
[2018-06-13] MEDS: hydroCHLOROthiazide 12.5 MG CAPSULE PO SCH (09:13)
[2018-06-13] MEDS: ASPIRIN 325 MG TABLET PO SCH (09:13)
[2018-06-13] MEDS: LACTOBACILLUS RHAMNOSUS GG 1 CAPSULE. PO SCH ×2 (09:13→22:36)
[2018-06-13] MEDS: FUROSEMIDE 40 MG TABLET. PO SCH (09:14)
[2018-06-13] MEDS: GLIMEPIRIDE 2 MG TABLET. PO SCH (09:14)
[2018-06-13] MEDS: metFORMIN 500 MG TABLET PO SCH ×2 (09:14→17:22)
[2018-06-13 10:03] LABS: HEMATOCRIT 41.4 % (39.0-53.0); HEMOGLOBIN 13.7 g/dL (13.0-17.5); RED BLOOD COUNT 4.51 x10^6/uL (4.30-5.70); RED CELL DISTRIBUTION WIDTH 14.3 % (11.5-14.5); WHITE BLOOD COUNT 11.8 x10^3/uL (4.0-11.0)
[2018-06-13 10:14] LABS: CREATININE 1.9 mg/dL (0.7-1.3); GFR 34.4; POTASSIUM 3.7 mmol/L (3.5-5.1)
--- NOTE | 2018-06-13 10:27 | PDOC ---
ORTHO PROGRESS NOTES Subjective Overall he feels like his foot is a little bit better. No new complaints. Vitals Vital Signs Date Time Temp Pulse Resp B/P (MAP) Pulse Ox O2 Delivery O2 Flow Rate FiO2 06/13/18 09:13 60 120/47 06/13/18 07:00 97.8 18 92 Room Air 97.8 06/12/18 09:15 3 Labs Laboratory Tests Test 06/11/18 11:54 06/11/18 17:03 06/11/18 20:39 06/12/18 05:00 Glucose (Fingerstick) 173 mg/dL (70-99) 206 mg/dL (70-99) 185 mg/dL (70-99) Creatinine 2.0 mg/dL (0.7-1.3) Estimated GFR (Cockcroft-Gault) 32.4 Test 06/12/18 07:31 06/12/18 08:56 06/12/18 11:24 06/12/18 16:40 Glucose (Fingerstick) 124 mg/dL (70-99) 126 mg/dL (70-99) 251 mg/dL (70-99) 311 mg/dL (70-99) Test 06/12/18 20:43 06/13/18 07:26 06/13/18 08:20 Glucose (Fingerstick) 327 mg/dL (70-99) 152 mg/dL (70-99) White Blood Count 11.8 x10^3/uL (4.0-11.0) Red Blood Count 4.51 x10^6/uL (4.30-5.70) Hemoglobin 13.7 g/dL (13.0-17.5) Hematocrit 41.4 % (39.0-53.0) Mean Corpuscular Volume 92 fL (79-100) Mean Corpuscular Hemoglobin 30 pg (25-35) Mean Corpuscular Hemoglobin Concent 33 g/dL (31-37) Red Cell Distribution Width 14.3 % (11.5-14.5) Platelet Count 300 x10^3/uL (140-400) Sodium Level 144 mmol/L (136-145) Potassium Level 3.7 mmol/L (3.5-5.1) Chloride Level 105 mmol/L (98-107) Carbon Dioxide Level 27 mmol/L (21-32) Anion Gap 12 (6-14) Blood Urea Nitrogen 41 mg/dL (8-26) Creatinine 1.9 mg/dL (0.7-1.3) Estimated GFR (Cockcroft-Gault) 34.4 Glucose Level 150 mg/dL (70-99) Calcium Level 9.0 mg/dL (8.5-10.1) Laboratory Tests Test 06/12/18 11:24 06/12/18 16:40 06/12/18 20:43 06/13/18 07:26 Glucose (Fingerstick) 251 mg/dL (70-99) 311 mg/dL (70-99) 327 mg/dL (70-99) 152 mg/dL (70-99) Test 06/13/18 08:20 White Blood Count 11.8 x10^3/uL (4.0-11.0) Red Blood Count 4.51 x10^6/uL (4.30-5.70) Hemoglobin 13.7 g/dL (13.0-17.5) Hematocrit 41.4 % (39.0-53.0) Mean Corpuscular Volume 92 fL (79-100) Mean Corpuscular Hemoglobin 30 pg (25-35) Mean Corpuscular Hemoglobin Concent 33 g/dL (31-37) Red Cell Distribution Width 14.3 % (11.5-14.5) Platelet Count 300 x10^3/uL (140-400) Sodium Level 144 mmol/L (136-145) Potassium Level 3.7 mmol/L (3.5-5.1) Chloride Level 105 mmol/L (98-107) Carbon Dioxide Level 27 mmol/L (21-32) Anion Gap 12 (6-14) Blood Urea Nitrogen 41 mg/dL (8-26) Creatinine 1.9 mg/dL (0.7-1.3) Estimated GFR (Cockcroft-Gault) 34.4 Glucose Level 150 mg/dL (70-99) Calcium Level 9.0 mg/dL (8.5-10.1) Notes Right foot has less edema. Cellulitic changes still present. Wound VAC is in place with a good seal. Assessment and Plan We'll await vascular surgery eval. Wound care for wound VAC changes. Okay to ambulate to heal. KATTY MANSFIELD II, MD Jun 13, 2018 10:27
[2018-06-13 11:00] VITALS: BP 112/45
[2018-06-13] MEDS: MULTIVITAMIN with MINERAL TABLET. PO SCH (11:47)
--- NOTE | 2018-06-13 11:48 | PDOC ---
Infectious Disease Note Subjective Subjective s/p I and D 06/12 Pain controlled Denies N/V/F/C/SOA/Rash/D ROS ROS o/w neg Vital Sign Vital Signs Vital Signs Date Time Temp Pulse Resp B/P (MAP) Pulse Ox O2 Delivery O2 Flow Rate FiO2 06/13/18 11:00 98.6 64 18 112/45 (67) 93 Room Air 98.6 06/12/18 09:15 3 Physical Exam PHYSICAL EXAM GENERAL: Propped up in bed, alert, eating HEENT: Normal conjunctivae. Oral cavity: Pharynx pink and moist. LUNGS: Clear to auscultation. HEART: S1, S2. ABDOMEN: Nondistended, soft and nontender with bowel sounds present. EXTREMITIES: Unremarkable except right foot with trace edema and mild redness extending to mid ankle. Wound vac in place SKIN: Warm without rash. NEUROLOGIC: Alert, responds appropriately. PIV Labs Lab Laboratory Tests Test 06/12/18 16:40 06/12/18 20:43 06/13/18 07:26 06/13/18 08:20 Glucose (Fingerstick) 311 mg/dL (70-99) 327 mg/dL (70-99) 152 mg/dL (70-99) White Blood Count 11.8 x10^3/uL (4.0-11.0) Red Blood Count 4.51 x10^6/uL (4.30-5.70) Hemoglobin 13.7 g/dL (13.0-17.5) Hematocrit 41.4 % (39.0-53.0) Mean Corpuscular Volume 92 fL (79-100) Mean Corpuscular Hemoglobin 30 pg (25-35) Mean Corpuscular Hemoglobin Concent 33 g/dL (31-37) Red Cell Distribution Width 14.3 % (11.5-14.5) Platelet Count 300 x10^3/uL (140-400) Sodium Level 144 mmol/L (136-145) Potassium Level 3.7 mmol/L (3.5-5.1) Chloride Level 105 mmol/L (98-107) Carbon Dioxide Level 27 mmol/L (21-32) Anion Gap 12 (6-14) Blood Urea Nitrogen 41 mg/dL (8-26) Creatinine 1.9 mg/dL (0.7-1.3) Estimated GFR (Cockcroft-Gault) 34.4 Glucose Level 150 mg/dL (70-99) Calcium Level 9.0 mg/dL (8.5-10.1) Test 06/13/18 11:17 Glucose (Fingerstick) 202 mg/dL (70-99) Micro Microbiology 06/10/18 Urine Culture - Final, Complete 06/10/18 Urine Culture Result 1 (JENARO) - Final, Complete Objective Assessment Diabetic ulcer right foot with cellulitis, s/p I and D, excisional, skin and subcutaneous tissue by Dr. North, 06/12, intra-op cultures pending Leukocytosis - post op and s/p Dexameth Diabetes with peripheral neuropathy Renal insufficiency - better Tobacco dependency HLD HTN COPD Plan Plan of Care ? If infection down to bone per op note went under MP joint and vac is ? covering bone Continue Zosyn, Dapto, d/w Dr. Garrett Nicolas Awaiting intra-op culture results am labs Local wound care Supportive care Awaiting Vascular evaluation ANTHONY MCELROY MD Jun 13, 2018 11:48
--- NOTE | 2018-06-13 13:11 | NUR ---
SW following. Discussed with RN, pt is from home alone. PT recommending SNU, SW awaiting OT recommendation. SW will continue to follow.
--- NOTE | 2018-06-13 14:04 | NUR ---
Wound Care Pt had vac placed to left plantar foot on 06/12/18, next dressing change due 06/15/18. Spoke with Dr North to verify dressing change date. Pt will need offloading shoe for ambulation. Mayda LAW stated pt skin is free of other wounds at this time. WC will follow up on Wednesday for vac change.
--- NOTE | 2018-06-13 14:30 | PDOC2 ---
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 Gordillo Identification/Chief Complaint Chief Complaint Right foot wound Source Source: Chart review, Patient History of Present Illness Reason for Visit: This is a 77-year-old white male was established patient of his admitting physician.. The patient presented to the office on the day of admission with a right medial foot ulcer with cellulitis extending up at least two-thirds up the [place]. He admitted feeling bad as well as having chills. He was felt to have a diabetic foot infection with cellulitis and needing more attention than p.o. antibiotics and was admitted for the same. He was admitted the hospital and underwent debridement of the right foot by orthopedic surgery. Today she denies any fever, chills, Rigors. He has no ischemic rest pain. He does report a history of bilateral lower extremity claudication symptomshe gets aching and pain in the calves of both legs with walking short distance that is improved with rest. Describes this is focal, aching, nonradiating, moderate 5 of 10, onset with walking, resolved with rest, occurring every time he walks. He smokes about 3 packs a day and has been smoking since age 12. He states he knows that is not good for him but he does not have any interest in quitting. He denies any history of [place], coronary stent, or surgical bypass of the coronaries but he does admit that he has had little evaluation of this in the past. He denies any chest pain at rest. His claudication makes exertional angina difficult to evaluate. He states he has some shortness of breath but is not on oxygen at home. He does have a history of COPD listed in his chart. Past Medical History Cardiovascular: HTN, Hyperlipidemia Pulmonary: COPD Endocrine: Diabetes Family History Family History: Hypertension, Other Social History # pack years (195) Current Problem List Problem List Throws grosses of [place] arteries of right lower extremity with ulceration a midfoot Diabetic foot infection right foot Current Medications Current Medications Current Medications Aspirin (Kaley Aspirin) 325 mg DAILY PO Last administered on 06/13/18at 09:13; Start 06/11/18 at 09:00 Atorvastatin Calcium (Lipitor) 40 mg HS PO Last administered on 3/10/19at 20:59 ; Start 06/10/18 at 21:00 Furosemide (Lasix) 40 mg DAILY PO Last administered on 06/13/18 09:14; Start 06/11/18 at 09:00 Celecoxib (CeleBREX) 200 mg DAILY PO Last administered on 06/13/18 09:13; Start 06/11/18 at 09:00 Non-Formulary Medication (Empagliflozin (Jardiance)) 25 mg DAILY PO ; Start 06/11 at 09:00; Stop 06/13/18 at 07:26; Status DC Glimepiride (Amaryl) 4 mg DAILY PO Last administered on 06/13/18 09:14; Start 06/11/18 at 09:00 Metformin HCl (Glucophage) 500 mg BIDWMEALS PO Last administered on 06/13/18 09:14; Start 06/10/18 at 17:30 Non-Formulary Medication (Valsartan/ Hydrochlorothiazide (Diovan Hct 160-12.5 Mg Tab)) 1 each DAILY PO ; Start 06/11/18 at 09:00; Status UNV Piperacillin Sod/ Tazobactam Sod 3.375 gm/Sodium Chloride 50 ml @ 100 mls/hr Q6HRS IV Last administered on 06/13/18 11:48; Start 06/10/18 at 17:30 Vancomycin HCl (Vanco Per Pharmacy) 1 each PRN DAILY PRN MC SEE COMMENTS Last administered on 06/12/18 10:52; Start 06/10/18 at 16:45; Stop 06/12/18 at 13:51 ; Status DC Vancomycin HCl 2 gm/Sodium Chloride 500 ml @ 250 mls/hr 1X ONCE IV Last administered on 06/10/18 18:12; Start 06/10/18 at 17:30; Stop 06/10/18 at 19:29; Status DC Losartan Potassium (Cozaar) 100 mg DAILY PO Last administered on 06/13/18 09: 13; Start 06/11/18 at 09:00 Hydrochlorothiazide (Microzide) 12.5 mg DAILY PO Last administered on 09:13; Start 06/11/18 at 09:00 Nicotine (Nicoderm Cq 21mg) 1 patch PRN DAILY PRN TD SMOKING CESSATION; Start 06/10/18 at 18:45 Vancomycin HCl 1.5 gm/Sodium Chloride 500 ml @ 250 mls/hr Q24H IV Last administered on 06/11/18at 18:03; Start 06/11/18 at 18:00; Stop 06/12/18 at 13:51; Status DC Vancomycin HCl (Vancomycin Trough Level) 1 each 1X ONCE MC ; Start 06/12/18 at 17:30; Stop 06/12/18 at 17:31; Status Cancel Ondansetron HCl (Zofran) 4 mg PRN Q6HRS PRN IV NAUSEA/VOMITING; Start 06/12/18 at 07:00; Stop 06/12/18 at 11:49; Status DC Fentanyl Citrate (Fentanyl 2ml Vial) 25 mcg PRN Q5MIN PRN IV MILD PAIN; Start 06/12/18 at 07:00; Stop 06/12/18 at 11:49; Status DC Fentanyl Citrate (Fentanyl 2ml Vial) 50 mcg PRN Q5MIN PRN IV MODERATE TO SEVERE PAIN; Start 06/12/18 at 07:00; Stop 06/12/18 at 11:49; Status DC Morphine Sulfate (Morphine Sulfate) 1 mg PRN Q10MIN PRN IV SEVERE PAIN; Start 06/12/18 at 07:00; Stop 06/12/18 at 11:49; Status DC Ringer's Solution 1,000 ml @ 30 mls/hr Q24H IV ; Start 06/12/18 at 07:00; Stop 06/12/18 at 11:49; Status DC Lidocaine HCl (Xylocaine-Mpf 1% 2ml Vial) 2 ml PRN 1X PRN ID PRIOR TO IV START ; Start 06/12/18 at 07:00; Stop 06/12/18 at 11:49; Status DC Hydromorphone HCl (Dilaudid) 0.5 mg PRN Q10MIN PRN IV SEV PAIN, Second choice; Start 06/12/18 at 07:00; Stop 06/12/18 at 11:49; Status DC Prochlorperazine Edisylate (Compazine) 5 mg PACU PRN PRN IV NAUSEA, MRX1; Start 06/12/18 at 07:00; Stop 06/12/18 at 11:49; Status DC Lactobacillus Rhamnosus (Culturelle) 1 cap BID PO Last administered on at 09:13; Start 06/12/18 at 21:00 Propofol 20 ml @ As Directed STK-MED ONCE IV ; Start 06/12/18 at 07:48; Stop 01/21 at 07:49; Status DC Lidocaine HCl (Lidocaine Pf 2% Vial) 5 ml STK-MED ONCE .ROUTE ; Start 06/12/18 at 07:48; Stop 06/12/18 at 07:49; Status DC Fentanyl Citrate (Fentanyl 2ml Vial) 100 mcg STK-MED ONCE .ROUTE ; Start at 08:11; Stop 06/12/18 at 08:13; Status DC Dexamethasone Sodium Phosphate (Decadron) 20 mg STK-MED ONCE .ROUTE ; Start 01/21 at 08:20; Stop 06/12/18 at 08:21; Status DC Ondansetron HCl (Zofran) 4 mg STK-MED ONCE .ROUTE ; Start 06/12/18 at 08:20; Stop 06/12/18 at 08:21; Status DC Sevoflurane (Ultane) 15 ml STK-MED ONCE IH ; Start 06/12/18 at 08:20; Stop 06/12 at 08:21; Status DC Daptomycin 540 mg/ Sodium Chloride 50 ml @ 100 mls/hr Q24H IV ; Start 06/12/18 at 14:00; Stop 06/12/18 at 14:00; Status DC Daptomycin 500 mg/ Sodium Chloride 50 ml @ 100 mls/hr Q24H IV Last administered on 06/12/18at 16:27; Start 06/12/18 at 16:00 Insulin Human Lispro (HumaLOG) 5 units 1X ONCE SQ Last administered on at 23:19; Start 06/12/18 at 21:30; Stop 06/12/18 at 22:32; Status DC Multivitamins (Thera M Plus) 1 tab DAILY PO Last administered on 06/13/18at 11: 47; Start 06/13/18 at 10:00 Active Scripts Active Reported Aspirin 325 Mg Tablet 325 Mg PO DAILY Celebrex (Celecoxib) 200 Mg Capsule 200 Mg PO DAILY 30 Days Furosemide 40 Mg Tablet 40 Mg PO DAILY Diovan Hct 160-12.5 Mg Tab (Valsartan/Hydrochlorothiazide) 1 Each Tablet 1 Each PO DAILY Atorvastatin Calcium 40 Mg Tablet 40 Mg PO HS Jardiance (Empagliflozin) 25 Mg Tablet 25 Mg PO DAILY Glimepiride 4 Mg Tablet 4 Mg PO DAILY Metformin Hcl 500 Mg Tablet 500 Mg PO BIDWMEALS Allergies Allergies: Coded Allergies: No Known Drug Allergies (Unverified , 06/10/18) Physical Exam General: Alert, Oriented X3, No acute distress HEENT: Atraumatic, PERRLA Lungs: Other (mild expiratory wheezes) Heart: Regular rate, Normal S1, Normal S2, No murmurs Abdomen: Normal bowel sounds, Soft, No tenderness Extremities: No edema, No tenderness/swelling, Other (femoral pulses palpable bilaterally, signals present but pulses absent) Skin: Other (incidence of some venous stasis changes bilateral lower extremities) Neuro: Normal speech, Strength at 5/5 X4 ext, Sensation intact, Cranial nerves 3-12 NL Psych/Mental Status: Mental status NL, Mood NL MUSCULOSKELETAL: No joint tenderness, No deformity Vitals VITALS Vital Signs Date Time Temp Pulse Resp B/P (MAP) Pulse Ox O2 Delivery O2 Flow Rate FiO2 06/13/18 11:00 98.6 64 18 112/45 (67) 93 Room Air 98.6 06/12/18 09:15 3 Labs Labs Laboratory Tests Test 06/11/18 17:03 06/11/18 20:39 06/12/18 05:00 06/12/18 07:31 Glucose (Fingerstick) 206 mg/dL (70-99) 185 mg/dL (70-99) 124 mg/dL (70-99) Creatinine 2.0 mg/dL (0.7-1.3) Estimated GFR (Cockcroft-Gault) 32.4 Test 06/12/18 08:56 06/12/18 11:24 06/12/18 16:40 06/12/18 20:43 Glucose (Fingerstick) 126 mg/dL (70-99) 251 mg/dL (70-99) 311 mg/dL (70-99) 327 mg/dL (70-99) Test 06/13/18 07:26 06/13/18 08:20 06/13/18 11:17 Glucose (Fingerstick) 152 mg/dL (70-99) 202 mg/dL (70-99) White Blood Count 11.8 x10^3/uL (4.0-11.0) Red Blood Count 4.51 x10^6/uL (4.30-5.70) Hemoglobin 13.7 g/dL (13.0-17.5) Hematocrit 41.4 % (39.0-53.0) Mean Corpuscular Volume 92 fL (79-100) Mean Corpuscular Hemoglobin 30 pg (25-35) Mean Corpuscular Hemoglobin Concent 33 g/dL (31-37) Red Cell Distribution Width 14.3 % (11.5-14.5) Platelet Count 300 x10^3/uL (140-400) Sodium Level 144 mmol/L (136-145) Potassium Level 3.7 mmol/L (3.5-5.1) Chloride Level 105 mmol/L (98-107) Carbon Dioxide Level 27 mmol/L (21-32) Anion Gap 12 (6-14) Blood Urea Nitrogen 41 mg/dL (8-26) Creatinine 1.9 mg/dL (0.7-1.3) Estimated GFR (Cockcroft-Gault) 34.4 Glucose Level 150 mg/dL (70-99) Calcium Level 9.0 mg/dL (8.5-10.1) Laboratory Tests Test 06/12/18 16:40 06/12/18 20:43 06/13/18 07:26 06/13/18 08:20 Glucose (Fingerstick) 311 mg/dL (70-99) 327 mg/dL (70-99) 152 mg/dL (70-99) White Blood Count 11.8 x10^3/uL (4.0-11.0) Red Blood Count 4.51 x10^6/uL (4.30-5.70) Hemoglobin 13.7 g/dL (13.0-17.5) Hematocrit 41.4 % (39.0-53.0) Mean Corpuscular Volume 92 fL (79-100) Mean Corpuscular Hemoglobin 30 pg (25-35) Mean Corpuscular Hemoglobin Concent 33 g/dL (31-37) Red Cell Distribution Width 14.3 % (11.5-14.5) Platelet Count 300 x10^3/uL (140-400) Sodium Level 144 mmol/L (136-145) Potassium Level 3.7 mmol/L (3.5-5.1) Chloride Level 105 mmol/L (98-107) Carbon Dioxide Level 27 mmol/L (21-32) Anion Gap 12 (6-14) Blood Urea Nitrogen 41 mg/dL (8-26) Creatinine 1.9 mg/dL (0.7-1.3) Estimated GFR (Cockcroft-Gault) 34.4 Glucose Level 150 mg/dL (70-99) Calcium Level 9.0 mg/dL (8.5-10.1) Test 06/13/18 11:17 Glucose (Fingerstick) 202 mg/dL (70-99) Images Images I independently reviewed the arterial duplex was Henrry Pereirathis shows long segment superficial femoral artery occlusion with reconstitution of the popliteal artery and low velocity tibial flow in the AMI and peroneal Assessment/Plan Assessment/Plan #1 COPD #2 atherosclerosis of [place] arteries of right lower extremity with ulceration/ infection right midfoot #3 long history of tobacco abuse #4 he has critical limb ischemia with right foot infection and wound an inadequate blood flow to heal this wound. A long discussion regarding the need for in-line blood flow to heal a wound and the fact that he is at risk for major amputation given right SFA occlusion and right diabetic foot infection He's had minimal evaluation of his heart in the past. He is at high risk for having significant coronary disease. We'll obtain an echocardiogram to see what his ejection fraction valvular statuses. We'll obtain vein mapping of his bilateral lower extremities to see if he has adequate vein for a bypass for limb salvage and we'll plan on angiography and possible right lower sternum and a likely tomorrow afternoon. I discussed with him all of this. We discussed the nature of angiography and the risks (access site complication, contrast allergy, contrast nephropathy, target vessel/interventional complications) and the benefits defining vascular anatomy and possible limb salvage intervention. He wishes to proceed. We'll plan left femoral access right leg angiography and possible intervention in the next few days as well as workup as above. Dependent reviewed his films today and spent quite some time evaluating his medical history on physical exam counseling and coordination of care exclusive of any procedures. This was all greater than 80 minutes today. MULUGETA BURRIS MD Jun 13, 2018 14:30
[2018-06-13 14:57] VITALS: BP 115/48
[2018-06-13] MEDS ORDERED: IV NORMAL SALINE 250ML 250 ML IV ONE (15:00)
[2018-06-13] MEDS ORDERED: IV NORMAL SALINE 1000ML BAG 1,000 ML IV ONE (15:00)
--- NOTE | 2018-06-13 15:33 | RAD ---
Bilateral lower extremity vein mapping, 06/13/2018: HISTORY: Lower extremity bypass planning Grayscale evaluation of the saphenous veins in both lower extremities was performed. The right greater saphenous vein is patent measuring 3.9 to 5.5 mm in the thigh and 3.7 to 4.5 mm in the lower leg. The right lesser saphenous vein is patent measuring 2.0 to 2.8 mm. On the left, greater saphenous vein is patent measuring 3.4 to 4.5 mm in the thigh and 2.4 to 3.2 mm in the lower leg. The left lesser saphenous vein is patent measuring 2.7 to 3.0 mm. IMPRESSION: Patent greater saphenous and lesser saphenous veins bilaterally with measurements as described above and fully delineated on the technologist worksheet available in the [employer] PACs system. Electronically signed by: Sohail Rodarte MD (06/13/2018 3:30 PM) [facility]
--- NOTE | 2018-06-13 16:12 | CARD ---
MR#: [id number] Date of Study: 06/13/2018 Ordering Physician: LUIS BURRIS, Referring Physician: Shannan JAEGER: Nikhil Prieto KEON APPROVED REPORT EXAM: Two-dimensional and M-mode echocardiogram with Doppler and color Doppler. Other Information Quality : Average INDICATION Dyspnea 2D DIMENSIONS RVDd3.0 (2.9-3.5cm)Left Atrium(2D)4.4 (1.6-4.0cm) IVSd1.4 (0.7-1.1cm)Aortic Root(2D)3.4 (2.0-3.7cm) LVDd4.2 (3.9-5.9cm)LVOT Diameter1.7 (1.8-2.4cm) PWd1.4 (0.7-1.1cm)LVDs2.9 (2.5-4.0cm) FS (%) 30.6 %SV45.3 ml LVEF(%)55.0 (>50%) Aortic Valve AoV Peak Luciano.140.1cm/sAoV VTI27.3cm AO Peak GR.7.9mmHgLVOT Peak Luciano.106.3cm/s LVOT VTI 23.09cmAO Mean GR.4mmHg KAVEH (VMAX)1.80ve7AAO (VTI)1.91cm2 Mitral Valve MV E Vslmijus41.6cm/sMV DECEL [id number] MV A Nujvasnx06.3cm/sMV E Mean Gr.1mmHg MV MAR33sxK/A Ratio1.3 MV A Fauynpat75xuDGM (PHT)3.98cm2 TDI E/Lateral E'7.8E/Medial E'9.0 Pulmonary Valve PV Peak Goamqfpp21.9cm/sPV Peak Grad.3mmHg RVOT VTI10.2cm Tricuspid Valve TR P. Qbyjmpwg241ng/sTR Peak Gr.37mmHg Pulmonary Vein S1 Tpbjasyn91.1cm/sD2 Ndvxakxs24.8cm/s LEFT VENTRICLE The left ventricle is normal size. There is borderline to mild concentric left ventricular hypertroph y. The left ventricular systolic function is normal. The ejection fraction is 60%. There is normal LV segmental wall motion. The left ventricular diastolic function and filling is normal for age. RIGHT VENTRICLE The right ventricle is normal size. There is normal right ventricular wall thickness. The right ventr icular systolic function is normal. ATRIA The left atrium size is normal. The right atrium size is normal. The interatrial septum is intact wit h no evidence for an atrial septal defect or patent foramen ovale as noted on 2-D or Doppler imaging. AORTIC VALVE The aortic valve is normal in structure and function. Doppler and Color Flow revealed no significant aortic regurgitation. There is no significant aortic valvular stenosis. MITRAL VALVE The mitral valve is normal in structure and function. There is no mitral valve stenosis. Doppler and Color Flow revealed mild mitral regurgitation. TRICUSPID VALVE The tricuspid valve is normal in structure and function. Doppler and Color Flow revealed mild tricusp id regurgitation. The PA pressure was estimated at 39 mmHg. There is no tricuspid valve stenosis. PULMONIC VALVE The pulmonary valve is normal in structure and function. Doppler and Color Flow revealed trace pulmon ic valvular regurgitation. GREAT VESSELS The aortic root is normal in size. Normal pulmonary venous flow (Doppler). The IVC is normal in size and collapses >50% with inspiration. PERICARDIAL EFFUSION There is no pleural effusion. There is no evidence of significant pericardial effusion. Critical Notification Critical Value: No <Conclusion> The left ventricular systolic function is normal. The ejection fraction is 60%. There is normal LV segmental wall motion. Mild mitral regurgitation. Mild tricuspid regurgitation. The PA pressure was estimated at 39 mmHg. There is no evidence of significant pericardial effusion. Signed by : Bry Aguilar, Electronically Approved : 06/13/2018 16:12:07
[2018-06-13] MEDS: DAPTOmycin (GENERIC) IVPB 500 MG in IV NORMAL SALINE 50ML 50 ML IV SCH (16:20)
[2018-06-13 17:03] LABS: PROTHROMBIN TIME PATIENT 18.1 SEC (11.7-14.0)
[2018-06-13 19:00] VITALS: BP 120/50
--- NOTE | 2018-06-13 21:43 | PDOC ---
GENERAL General: vss and afebrile. awake and alert. denies complaints. cellulitis is improving. PAD by doppler with vascular surgery to see. elevated sugars but not receiving home meds due to formulary issues. continue antibiotics. VITAL SIGNS Vital Signs: Vital Signs Date Time Temp Pulse Resp B/P (MAP) Pulse Ox O2 Delivery O2 Flow Rate FiO2 06/13/18 19:00 98.2 62 18 120/50 (73) 94 98.2 06/13/18 14:57 Room Air 06/12/18 09:15 3 I & O I & O Intake and Output 06/13/18 07:00 Intake Total 750 ml Output Total 1650 ml Balance -900 ml Intake Oral 700 ml IV Total 50 ml Output Urine Total 1650 ml # Voids 1 ALLERGIES Allergies: Allergies Coded Allergies Type Severity Reaction Last Updated Verified No Known Drug Allergies 06/10/18 No MEDS Medications: Current Medications Medications (Trade) Dose Ordered Sig/Svetlana Start Time Stop Time Status Last Admin Dose Admin Aspirin (Kaley Aspirin) 325 mg DAILY 06/11/18 09:00 06/13/18 09:13 325 MG Atorvastatin Calcium (Lipitor) 40 mg HS 06/10/18 21:00 06/12/18 20:59 40 MG Celecoxib (CeleBREX) 200 mg DAILY 06/11/18 09:00 06/13/18 09:13 200 MG Daptomycin 500 mg/ Sodium Chloride 50 ml @ 100 mls/hr Q24H 06/12/18 16:00 06/13/18 16:20 100 MLS/HR Daptomycin 540 mg/ Sodium Chloride 50 ml @ 100 mls/hr Q24H 06/12/18 14:00 06/12/18 14:00 DC Dexamethasone Sodium Phosphate (Decadron) 20 mg STK-MED ONCE 06/12/18 08:20 06/12/18 08:21 DC Fentanyl Citrate (Fentanyl 2ml Vial) 100 mcg STK-MED ONCE 06/12/18 08:11 06/12/18 08:13 DC Furosemide (Lasix) 40 mg DAILY 06/11/18 09:00 06/13/18 09:14 40 MG Glimepiride (Amaryl) 4 mg DAILY 06/11/18 09:00 06/13/18 09:14 4 MG Hydrochlorothiazide (Microzide) 12.5 mg DAILY 06/11/18 09:00 06/13/18 09:13 12.5 MG Hydromorphone HCl (Dilaudid) 0.5 mg PRN Q10MIN PRN 06/12/18 07:00 06/12/18 11:49 DC Insulin Human Lispro (HumaLOG) 5 units 1X ONCE 06/12/18 21:30 06/12/18 22:32 DC 06/12/18 23:19 5 UNITS Lactobacillus Rhamnosus (Culturelle) 1 cap BID 06/12/18 21:00 06/13/18 09:13 1 CAP Lidocaine HCl (Lidocaine Pf 2% Vial) 5 ml STK-MED ONCE 06/12/18 07:48 06/12/18 07:49 DC Lidocaine HCl (Xylocaine-Mpf 1% 2ml Vial) 2 ml PRN 1X PRN 06/12/18 07:00 06/12/18 11:49 DC Losartan Potassium (Cozaar) 100 mg DAILY 06/11/18 09:00 06/13/18 09:13 100 MG Metformin HCl (Glucophage) 500 mg BIDWMEALS 06/10/18 17:30 06/13/18 17:22 500 MG Morphine Sulfate (Morphine Sulfate) 1 mg PRN Q10MIN PRN 06/12/18 07:00 06/12/18 11:49 DC Multivitamins (Thera M Plus) 1 tab DAILY 06/13/18 10:00 06/13/18 11:47 1 TAB Nicotine (Nicoderm Cq 21mg) 1 patch PRN DAILY PRN 06/10/18 18:45 Non-Formulary Medication (Empagliflozin (Jardiance)) 25 mg DAILY 06/11/18 09:00 06/13/18 07:26 DC Non-Formulary Medication (Valsartan/ Hydrochlorothiazide (Diovan Hct 160-12.5 Mg Tab)) 1 each DAILY 06/11/18 09:00 UNV Ondansetron HCl (Zofran) 4 mg STK-MED ONCE 06/12/18 08:20 06/12/18 08:21 DC Piperacillin Sod/ Tazobactam Sod 3.375 gm/Sodium Chloride 50 ml @ 100 mls/hr Q6HRS 06/10/18 17:30 06/13/18 18:06 100 MLS/HR Prochlorperazine Edisylate (Compazine) 5 mg PACU PRN PRN 06/12/18 07:00 06/12/18 11:49 DC Propofol 20 ml @ As Directed STK-MED ONCE 06/12/18 07:48 06/12/18 07:49 DC Ringer's Solution 1,000 ml @ 30 mls/hr Q24H 06/12/18 07:00 06/12/18 11:49 DC Sevoflurane (Ultane) 15 ml STK-MED ONCE 06/12/18 08:20 06/12/18 08:21 DC Sodium Chloride 250 ml @ 250 mls/hr 1X ONCE 06/13/18 15:00 06/13/18 15:59 DC 06/13/18 16:19 250 MLS/HR Vancomycin HCl (Vanco Per Pharmacy) 1 each PRN DAILY PRN 06/10/18 16:45 06/12/18 13:51 DC 06/12/18 10:52 1 EACH Vancomycin HCl (Vancomycin Trough Level) 1 each 1X ONCE 06/12/18 17:30 06/12/18 17:31 Cancel Vancomycin HCl 1.5 gm/Sodium Chloride 500 ml @ 250 mls/hr Q24H 06/11/18 18:00 06/12/18 13:51 DC 06/11/18 18:03 250 MLS/HR Vancomycin HCl 2 gm/Sodium Chloride 500 ml @ 250 mls/hr 1X ONCE 06/10/18 17:30 06/10/18 19:29 DC 06/10/18 18:12 250 MLS/HR LAB Lab: Laboratory Tests Test 06/13/18 07:26 06/13/18 08:20 06/13/18 11:17 06/13/18 16:45 Glucose (Fingerstick) 152 mg/dL (70-99) 202 mg/dL (70-99) White Blood Count 11.8 x10^3/uL (4.0-11.0) Red Blood Count 4.51 x10^6/uL (4.30-5.70) Hemoglobin 13.7 g/dL (13.0-17.5) Hematocrit 41.4 % (39.0-53.0) Mean Corpuscular Volume 92 fL (79-100) Mean Corpuscular Hemoglobin 30 pg (25-35) Mean Corpuscular Hemoglobin Concent 33 g/dL (31-37) Red Cell Distribution Width 14.3 % (11.5-14.5) Platelet Count 300 x10^3/uL (140-400) Sodium Level 144 mmol/L (136-145) Potassium Level 3.7 mmol/L (3.5-5.1) Chloride Level 105 mmol/L (98-107) Carbon Dioxide Level 27 mmol/L (21-32) Anion Gap 12 (6-14) Blood Urea Nitrogen 41 mg/dL (8-26) Creatinine 1.9 mg/dL (0.7-1.3) Estimated GFR (Cockcroft-Gault) 34.4 Glucose Level 150 mg/dL (70-99) Calcium Level 9.0 mg/dL (8.5-10.1) Prothrombin Time 18.1 SEC (11.7-14.0) Prothromb Time International Ratio 1.5 (0.8-1.1) Test 06/13/18 16:47 Glucose (Fingerstick) 217 mg/dL (70-99) APPLMERLYN MD Jun 13, 2018 21:43
[2018-06-13] MEDS: ATORVASTATIN CALCIUM 40 MG TABLET. PO SCH (22:36)
[2018-06-13 23:00] VITALS: BP 124/54
[2018-06-14] VITALS (13 sets, daily range): BP systolic 110–144; BP diastolic 47–86
[2018-06-14] MEDS: PIPERACILLIN/TAZOBACTAM 3.375 GM in IV NORMAL SALINE 50ML 50 ML IV SCH ×4 (00:10→17:18)
[2018-06-14] MEDS: ASPIRIN 325 MG TABLET PO SCH (09:00)
[2018-06-14] MEDS: hydroCHLOROthiazide 12.5 MG CAPSULE PO SCH (09:00)
--- NOTE | 2018-06-14 10:24 | PN ---
DATE: 06/14/2018 SUBJECTIVE: The patient is awake, alert, getting tired of being in the hospital and does not like the food very well. Denies any significant pain. OBJECTIVE: VITAL SIGNS: Stable. He is afebrile. CHEST: Clear. HEART: Regular. ABDOMEN: Benign. Sugars remain mildly elevated, cellulitic changes right leg has decreased, wound VAC remains on the right foot surgical site. Vascular Surgery is planning on an arteriogram with possible intervention today. IMPRESSION: 1. Diabetic right foot ulcer with cellulitis. 2. Peripheral arterial disease. 3. Ongoing antibiotic therapy for infection. 4. No wound cultures back yet from surgery with surgical debridement of the foot. PLAN: Continue present antibiotics. Agree with revascularization. Echocardiogram yesterday was normal. MERLYN CORDOBA MD DR: NATALIA/iván JOB#: [id number] / [id number]
--- NOTE | 2018-06-14 10:29 | PDOC ---
Infectious Disease Note Subjective Subjective Discouraged Occ loose stool Pain controlled Denies N/V/F/C/SOA/Rash ROS ROS o/w neg Vital Sign Vital Signs Vital Signs Date Time Temp Pulse Resp B/P (MAP) Pulse Ox O2 Delivery O2 Flow Rate FiO2 06/14/18 08:00 Room Air 06/14/18 07:00 98.0 62 18 110/47 (68) 94 98.0 Physical Exam PHYSICAL EXAM GENERAL: Propped up in bed, alert, eating HEENT: Normal conjunctivae. Oral cavity: Pharynx pink and moist. LUNGS: Clear to auscultation. HEART: S1, S2. ABDOMEN: Nondistended, soft and nontender with bowel sounds present. EXTREMITIES: Unremarkable except right foot with trace edema and mild redness extending to mid ankle. Wound vac in place SKIN: Warm without rash. NEUROLOGIC: Alert, responds appropriately. PIV Labs Lab Laboratory Tests Test 06/13/18 11:17 06/13/18 16:45 06/13/18 16:47 06/13/18 22:12 Glucose (Fingerstick) 202 mg/dL (70-99) 217 mg/dL (70-99) 191 mg/dL (70-99) Prothrombin Time 18.1 SEC (11.7-14.0) Prothromb Time International Ratio 1.5 (0.8-1.1) Test 06/14/18 07:38 Glucose (Fingerstick) 125 mg/dL (70-99) Micro Microbiology 06/10/18 Urine Culture - Final, Complete 06/10/18 Urine Culture Result 1 (JENARO) - Final, Complete Objective Assessment Diabetic ulcer right foot with cellulitis, s/p I and D, excisional, skin and subcutaneous tissue by Dr. North, 06/12, intra-op cultures pending PAD Leukocytosis - post op and s/p Dexameth Diabetes with peripheral neuropathy Renal insufficiency - better Tobacco dependency HLD HTN COPD Plan Plan of Care Await further Vascular eval ? If infection down to bone per op note went under MP joint and vac is ? covering bone Continue Zosyn, Dapto Awaiting intra-op culture results am labs today Local wound care Supportive care ANTHONY MCELROY MD Jun 14, 2018 10:29
[2018-06-14 11:20] LABS: BASO # 0.1 x10^3/uL (0.0-0.2); BASO % 1 % (0-3); EOS # 0.2 x10^3/uL (0.0-0.7); EOS % 2 % (0-3); HEMATOCRIT 41.2 % (39.0-53.0); HEMOGLOBIN 13.6 g/dL (13.0-17.5); LYMPH # 1.2 x10^3/uL (1.0-4.8); LYMPH % 13 % (24-48); MEAN CORPUSCULAR HEMOGLOBIN 30 pg (25-35); MEAN CORPUSCULAR HGB CONC 33 g/dL (31-37); MEAN CORPUSCULAR VOLUME 92 fL (79-100); MONO # 0.7 x10^3/uL (0.0-1.1); MONO % 8 % (0-9); NEUT # 7.2 x10^3uL (1.8-7.7); NEUT % 76 % (31-73); PLATELET COUNT 273 x10^3/uL (140-400); RED CELL DISTRIBUTION WIDTH 14.4 % (11.5-14.5); WHITE BLOOD COUNT 9.4 x10^3/uL (4.0-11.0)
[2018-06-14 11:37] LABS: CALCIUM 8.6 mg/dL (8.5-10.1); CREATININE 1.6 mg/dL (0.7-1.3); GFR 41.9; POTASSIUM 3.3 mmol/L (3.5-5.1)
[2018-06-14] MEDS ORDERED: HEPARIN for ARTERIAL LINE 1,500 ML ONE (13:01)
[2018-06-14] MEDS ORDERED: LIDOCAINE 1% Multi-Dose 20 ML VIAL. ONE (13:01)
[2018-06-14] MEDS ORDERED: IODIXANOL 320 MG/ML 100 ML VIAL. ONE (13:01)
[2018-06-14] MEDS ORDERED: MIDAZOLAM HCL/PF 5 MG/5 ML VIAL. ONE (14:10)
[2018-06-14] MEDS ORDERED: HEPARIN for IV BOLUS 10,000 UNIT/10 ML VIAL. ONE (14:11)
[2018-06-14] MEDS ORDERED: fentaNYL PF VIAL 100 MCG/2 ML VIAL ONE (14:11)
[2018-06-14] MEDS ORDERED: IODIXANOL 320 MG/ML 100 ML VIAL. IART ONE (14:15)
[2018-06-14] MEDS ORDERED: MIDAZOLAM HCL/PF 5 MG/5 ML VIAL. IV ONE (14:15)
[2018-06-14] MEDS ORDERED: fentaNYL PF VIAL 100 MCG/2 ML VIAL IV ONE (14:15)
[2018-06-14] MEDS ORDERED: LIDOCAINE 2% 20 ML VIAL. IJ ONE (14:15)
[2018-06-14] MEDS ORDERED: CONTRAST GIVEN. MC PRN (14:30)
[2018-06-14] MEDS ORDERED: POTASSIUM CHLORIDE 20 MEQ TABLET.ER. PO ONE (14:45)
[2018-06-14] MEDS ORDERED: LIDOCAINE 1% Multi-Dose 20 ML VIAL. INJ ONE (15:00)
--- NOTE | 2018-06-14 15:41 | PDOC4 ---
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 Anesthesia Type: Conscious sedation under surgeon and RN supervision Total 30 minutes Fentanyl 50 g Versed 1 mg Blood Loss: 0 Specimans Obtained: None Findings: #1 Aorta and renal arteries are widely patent on single AP view no AAA, no significant aortic occlusive disease #2 bilateral common and external iliac arteries widely patent #3 bilateral common and profunda femoral arteries widely patent #4 right superficial femoral artery occludes shortly after its origin. The entire SFA and popliteal artery occluded. #5 there are significant collaterals around the knee and the peroneal artery reconstitutes just below the TP trunk open (which is occluded) and gives good flow to the ankle with good collateralization out to the branches of the posterior tibial and the foot Complications: None Operative Note: The patient was escorted to the Research Technician and placed supine on the table. The groins were prepped and draped in usual sterile fashion. An appropriate timeout was performed. After placement of appropriate monitoring devices conscious sedation was induced under surgeon and RN supervision using intravenous fentanyl and Versed. Attention was directed to the left groin with a left common femoral artery was fluoroscopically marked over the femoral head and then examined with ultrasound. On ultrasound the vessels found to be widely patent with good flow and an image of the vessel was taken and saved for the medical record. Under ultrasound guidance local anesthetic was injected in the left groin and the left common femoral artery was accessed in retrograde fashion using a micropuncture needle. This was used to introduce a micropuncture wire into the iliac artery under fluoroscopic guidance and exchanged the needle for a micropuncture sheath which backbled easily. This was used to introduce a Madrid wire into the abdominal aorta and this was used to exchange the Delvin puncture sheath for a 5 Moldovan sheath which is aspirin flush the difficulty. This combination was used to introduce an Omni Flush into the supra renal abdominal aorta and a carbon dioxide aortogram was obtained. The catheter was pulled back to the aortic bifurcation and oblique pelvic angiograms were obtained, also with carbon dioxide. I used the catheter and the Madrid wire to cross the aortic bifurcation and passed the wire and then the catheter and the right common femoral artery. Catheter tip in the right common femoral artery right leg runoff to the foot was obtained using accommodation of CO2 and contrast.. This showed that the SFA occluded right after it's origin and did not reconstitute until the peroneal artery which was the only vessel giving flow to the foot. Preoperative vein mapping showed a good saphenous vein and his echocardiogram was normal I felt that he be best served with a femoral distal bypass. The catheter was removed over a wire and the sheath was removed over a wire. A 6 Moldovan Angio-Seal device was deployed the left groin with excellent hemostasis. Patient was escorted back to his room in stable condition. I visited with the patient sometime after's procedure in his room when he was more awake from sedation. His left femoral access site was intact without complication. I explained to him the findings and the need for bypass surgery for limb salvage. He expresses understanding and wishes to proceed. MULUGETA BURRIS MD Jun 14, 2018 15:41
--- NOTE | 2018-06-14 15:50 | NUR ---
SS following up with discharge planning. PT/OT recommended [facility] unit. SS met with pt in room to discuss discharge planning and [facility] unit. Pt reported that he has procedure scheduled for tomorrow but if [facility] unit is needed to please send referral to the closest [facility] unit to his home in [place], [place]. SS compared pt's address to [facility] units in that area and [facility] was the closest. Pt asked that SS re-discuss with him after his procedure.
[2018-06-14] MEDS: metFORMIN 500 MG TABLET PO SCH ×2 (15:51→17:17)
[2018-06-14] MEDS: FUROSEMIDE 40 MG TABLET. PO SCH (15:51)
[2018-06-14] MEDS: LACTOBACILLUS RHAMNOSUS GG 1 CAPSULE. PO SCH ×2 (15:51→21:08)
[2018-06-14] MEDS: CELECOXIB 100 MG CAPSULE. PO SCH (15:51)
[2018-06-14] MEDS: LOSARTAN POTASSIUM 50 MG TABLET. PO SCH (15:52)
[2018-06-14] MEDS: GLIMEPIRIDE 2 MG TABLET. PO SCH (15:52)
[2018-06-14] MEDS: MULTIVITAMIN with MINERAL TABLET. PO SCH (15:52)
[2018-06-14] MEDS: IV NORMAL SALINE 1000ML BAG 1,000 ML IV SCH (16:31)
[2018-06-14] MEDS: DAPTOmycin (GENERIC) IVPB 500 MG in IV NORMAL SALINE 50ML 50 ML IV SCH (16:31)
[2018-06-14] MEDS: ATORVASTATIN CALCIUM 40 MG TABLET. PO SCH (21:08)
[2018-06-15] MEDS: PIPERACILLIN/TAZOBACTAM 3.375 GM in IV NORMAL SALINE 50ML 50 ML IV SCH ×5 (01:00→23:54)
[2018-06-15 03:00] VITALS: BP 112/43
[2018-06-15] MEDS: IV NORMAL SALINE 1000ML BAG 1,000 ML IV SCH ×2 (03:33→16:24)
[2018-06-15] MEDS ORDERED: SURGICEL FIBRILLAR 1X2 EACH. ONE (05:57)
[2018-06-15] MEDS ORDERED: IOHEXOL 300 MG/ML 100ML VIAL. ONE (05:57)
[2018-06-15] MEDS ORDERED: HEPARIN SODIUM 5,000 UNIT in IV NORMAL SALINE 500ML BAG 500 ML IRR ONE (06:00)
[2018-06-15] MEDS ORDERED: HYDROmorphone 2 MG/ML VIAL IV PRN ×2 (07:00→11:15)
[2018-06-15] MEDS ORDERED: fentaNYL PF VIAL 100 MCG/2 ML VIAL IV PRN ×4 (07:00→11:15)
[2018-06-15] MEDS ORDERED: ONDANSETRON PF 4 MG/2 ML VIAL. IV PRN ×3 (07:00→12:15)
[2018-06-15] MEDS ORDERED: MORPHINE SULFATE 2 MG/ML VIAL. IV PRN ×3 (07:00→12:15)
[2018-06-15] MEDS ORDERED: PROCHLORPERAZINE 10 MG/2 ML VIAL. IV PRN ×3 (07:00→12:15)
[2018-06-15] MEDS ORDERED: IV RINGERS,LACTATED 1000ML 1,000 ML IV SCH ×2 (07:00→11:06)
[2018-06-15] MEDS ORDERED: BUPIVACAINE-EPI 0.25%-1:200000 MPF 30 ML VIAL. ONE (07:06)
[2018-06-15] MEDS ORDERED: ROCURONIUM 50 MG/5 ML VIAL. ONE ×2 (07:15→08:48)
[2018-06-15] MEDS ORDERED: fentaNYL PF VIAL 100 MCG/2 ML VIAL ONE (07:15)
[2018-06-15] MEDS ORDERED: ONDANSETRON PF 4 MG/2 ML VIAL. ONE (07:16)
[2018-06-15] MEDS ORDERED: PROPOFOL 20 ML IV ONE (07:16)
[2018-06-15] MEDS ORDERED: LIDOCAINE 2% PF 5 ML VIAL. ONE ×2 (07:16→11:10)
[2018-06-15] MEDS ORDERED: DEXAMETHASONE SOD PHOS 20 MG/5 ML VIAL. ONE (07:16)
[2018-06-15] MEDS ORDERED: PHENYLEPHRINE 10 MG/ML VIAL. ONE (07:16)
[2018-06-15] MEDS ORDERED: SEVOFLURANE > 120 MINUTES. IH ONE (07:16)
[2018-06-15] MEDS: metFORMIN 500 MG TABLET PO SCH ×2 (08:00→17:51)
[2018-06-15] MEDS: FUROSEMIDE 40 MG TABLET. PO SCH (09:00)
[2018-06-15] MEDS: LOSARTAN POTASSIUM 50 MG TABLET. PO SCH (09:00)
[2018-06-15] MEDS: LACTOBACILLUS RHAMNOSUS GG 1 CAPSULE. PO SCH ×2 (09:00→21:30)
[2018-06-15] MEDS: CELECOXIB 100 MG CAPSULE. PO SCH (09:00)
[2018-06-15] MEDS: MULTIVITAMIN with MINERAL TABLET. PO SCH (09:00)
[2018-06-15] MEDS: ASPIRIN 325 MG TABLET PO SCH (09:00)
[2018-06-15] MEDS: hydroCHLOROthiazide 12.5 MG CAPSULE PO SCH (09:00)
[2018-06-15] MEDS: GLIMEPIRIDE 2 MG TABLET. PO SCH (09:00)
[2018-06-15] MEDS ORDERED: PROTAMINE 50 MG/5 ML VIAL. IV ONE (10:31)
[2018-06-15] MEDS ORDERED: GLYCOPYRROLATE 1 MG/5 ML VIAL. ONE (10:52)
[2018-06-15] MEDS ORDERED: NEOSTIGMINE 10 MG/10 ML VIAL. ONE (10:52)
[2018-06-15] MEDS ORDERED: MORPHINE SULFATE 10 MG/ML VIAL. ONE (11:00)
[2018-06-15] MEDS ORDERED: LIDOCAINE 1% PF 2 ML VIAL. ID PRN (11:15)
--- NOTE | 2018-06-15 11:42 | NUR ---
SW following. Discussed with RN, pt having a procedure today. SW will continue to follow for discharge planning.
[2018-06-15 12:00] VITALS: BP 131/62
--- NOTE | 2018-06-15 12:08 | PDOC4 ---
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 Anesthesia Type: Lorie TOBIN Blood Loss: 150 mL Specimans Obtained: Right great toe and right first metatarsal head Findings: Adequate saphenous vein The right common femoral artery was widely patent The saphenous vein was anastomosed end to side to the proximal right SFA Successful usage of a Lemaitre valvulotome with excellent arterial inflow Angiograms shows the bypass graft widely patent with a widely patent proximal and distal anastomosis and no stenosis/kinking/limited flow within the bypass 2 large side branches were ligated one in the proximal calf just below the knee and the second in the mid thigh Complications: None Operative Note: Patient was escorted to the operating room and placed supine on the table. After placement of appropriate monitoring devices and lines anesthesia was induced without difficulty. A timeout was performed. The catheter of the right greater saphenous vein was marked on the leg and the position of side branches was marked as well. The right leg and groin were prepped and draped in usual sterile fashion. Attention was directed to the right groin where a small longitudinal incision was made over the distal common femoral artery/proximal SFA this is carried down with Bovie cautery and sharp dissection until the femoral sheath was opened. This was opened longitudinally and the underlying common femoral profunda femoris and proximal superficial femoral arteries are dissected free from surrounding structures and controlled vessel loops. The saphenofemoral junction was also identified and the first several centimeters the greater saphenous vein were mobilized. Some large side branches were ligated with ties and divided. Attention was directed to the medial calf where a longitudinal incision was made just below the path of the saphenous vein. This was carried down with Bovie cautery and sharp dissection until the posterior compartments were identified. The muscle was taken down from the tibia and the deep posterior compartment was entered. Identified the posterior tibial artery and then went past this and identified the peroneal artery. I confirmed this with Doppler signal and then dissected the peroneal artery from surrounding structures and controlled with Vesseloops proximally and distally. This appeared to be a good target for distal bypass. Saphenous vein within the mid calf was then dissected free from surrounding structures within the same incision. Once I had adequate saphenous vein for the bypass and this all appeared adequate the patient was given intravenous heparin. Attention was directed to the groin incision where the saphenofemoral junction was clamped with a Satinsky clamp and the saphenous vein was occluded with a small bulldog distally within the incision. The SFJ was divided in oblique fashion and the lip of vein remaining on the common femoral vein was oversewn in 2 directions with a 5-0 Prolene with excellent hemostasis. A venous valve within the proximal vein was carefully removed with Ramirez angled scissors. The vein was then flushed and found to have good diameter and a good intact wall. At this point the heparin had been given adequate time for circulation. The common femoral, performed a femoral and SFA were occluded with vessel loops and vascular clamps. A standard anterior longitudinal arteriotomy was created on the very distal common femoral/proximal superficial femoral artery and extended with Ramirez angled scissors. A focal endarterectomy at the SFA was performed and then the [employer] was flashed and there was excellent inflow. This was all irrigated with heparinized saline. The vein was brought to the artery and spatulated to match the arteriotomy. A standard end-to-side anastomosis was created between the vein and the artery using a running 6-0 Prolene stitch. Just prior to completion of the repair the vessels were backbled, forward flushed, and irrigated with heparin saline. The repair was completed and normal for flow was returned down the profunda and then to the vein. The graft was palpated and found to have a excellent pulse and we could visualize the first few centimeters were well distended up to the first venous valve. From the calf incision the saphenous vein was ligated and divided as distally in the leg as possible within the incision. It was irrigated with heparinized saline and then the Lemaitre valvulotome was passed retrograde through the vein and was palpable within the proximal vein. It was opened and then pulled back to perform valvulotomy 2 with excellent arterial inflow at the distal end. The peroneal artery was occluded distal proximally Vesseloops and then a long medial arteriotomy was created with a #11 scalpel and extended with small Ramirez angled scissors. The vein was brought artery under no tension, cut to length and spatulated to match the arteriotomy. A standard end-to-side anastomosis was created between the vein and the artery using a running 7-0 Prolene stitch. Just prior to the completion of the repair the vessels were backbled, forward flushed, and irrigated heparinized saline. The repair was completed and normal forward flow was returned to the leg. There was excellent Doppler signal in the graft in the distal peroneal artery and a palpable pulse within the graft itself. At this point attention was directed to the right groin where a butterfly needle and extension tubing were placed in the common femoral artery above the anastomosis. A sterilely draped C-arm was brought to the field and used to perform digital subtraction angiography of the common femoral, the entire bypass graft, and the runoff to the ankle. The proximal and distal anastomoses were both widely patent with excellent flow through the graft. There were 2 large side branches giving significant flow into the deep femoral vein and these were marked on the skin with ultrasound and fluoroscopy. The first of the large branches was just a couple centimeters proximal to the medial calf incision so therefore this incision was extended partially in the leg just about 2 cm and the branches were identified. These were all ligated with ties and clips. The second branch was in the middle of the thigh. Local anesthetic was injected and a small longitudinal incision was made over the branch. This carried out Bovie cautery and sharp dissection until the vein graft was identified. An excellent pulse and this was dissected free into the large side branch was identified. This was ligated with a 3-0 silk tie and some clips. There was a palpable pulse within the graft and excellent peroneal artery signal at the ankle. Protamine was used to reverse the heparin and excellent hemostasis was ensured at all the wound beds. Once we're sure this the wounds were closed. The deep layers were closed with 2-0 Vicryl followed by subdermal 3 -0 Vicryl and subcuticular 4-0 Vicryl. A VAC Prevena was placed at the right groin incision. Sterile dressings were placed over all the other wounds. Attention was then directed to the right foot which was reprepped with Betadine. This was explored and there was a large amount of necrotic tissue within the wound base. This was all debrided and once I took this back there was a large amount of purulent drainage coming from around the great toe including the metatarsal head. It was obvious that the bone was involved and there was significant necrotic tissue surrounding the great toe and extending into the base of the great toe. It was impossible to debride all this without completely exposing the bone and the first metatarsal head. It was obvious that this was all well involved in infection. Given the need to completely remove all infected material for limb salvage dissection was carried along the base of the metatarsal head and then this was divided. The right great toe and the first metatarsal head were removed in elliptical incision and then further excessive debridement was carried out of all necrotic tissue within the wound bed. Once this was taken back to all healthy tissue with good arterial bleeding excellent hemostasis was ensured and the wound VAC was placed. The patient was awakened and in the operating room and escorted to recovery in stable condition. There were no complications, the patient tolerated the procedure well throughout, and at the end of the case all sponge, needle, and instrument counts were reported to me as correct 2. MULUGETA BURRIS MD Jun 15, 2018 12:08
[2018-06-15] MEDS ORDERED: 0.9 % SODIUM CHLORIDE 10 ML DISP.SYRIN. IV PRN (12:15)
[2018-06-15] MEDS ORDERED: LABETALOL 20 MG/4 ML DISP.SYRIN. IVP PRN (12:15)
[2018-06-15] MEDS ORDERED: hydrALAZINE 20 MG/ML VIAL. IVP PRN (12:15)
[2018-06-15] MEDS ORDERED: oxyCODONE/APAP 5/325 1 TAB TABLET PO PRN (12:15)
[2018-06-15] MEDS ORDERED: DOCUSATE SODIUM 100 MG CAPSULE. PO PRN (12:15)
[2018-06-15] MEDS ORDERED: ZOLPIDEM 5 MG TABLET. PO PRN (12:15)
[2018-06-15] MEDS ORDERED: NALOXONE 0.4 MG/ML VIAL. IV PRN (12:15)
[2018-06-15] MEDS ORDERED: diphenhydrAMINE 50 MG/ML VIAL IV PRN (12:15)
[2018-06-15] MEDS ORDERED: diphenhydrAMINE HCL 25 MG CAPSULE PO PRN (12:15)
[2018-06-15 13:00] VITALS: BP 116/46
[2018-06-15] MEDS ORDERED: IV NORMAL SALINE 1000ML BAG 1,000 ML IV SCH (13:00)
--- NOTE | 2018-06-15 13:47 | PDOC ---
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 He expresses understanding and appreciates not having to have another anesthetic / surgery. To the floor Bedrest today In the AM will get a forefoot wedge shoe and he can begin to ambulate Objective Objective Vital Signs Date Time Temp Pulse Resp B/P (MAP) Pulse Ox O2 Delivery O2 Flow Rate FiO2 06/15/18 13:15 98.1 62 16 124/49 98 Nasal Cannula 2 98.1 Intake and Output 06/15/18 06:59 Intake Total 1300 ml Output Total 1300 ml Balance 0 ml Intake Oral 300 ml IV Total 1000 ml Output Urine Total 1300 ml Comment Review of Relevant I have reviewed the following items evans (where applicable) has been applied. Labs Laboratory Tests Test 06/13/18 16:45 06/13/18 16:47 06/13/18 22:12 06/14/18 07:38 Prothrombin Time 18.1 SEC (11.7-14.0) Prothromb Time International Ratio 1.5 (0.8-1.1) Glucose (Fingerstick) 217 mg/dL (70-99) 191 mg/dL (70-99) 125 mg/dL (70-99) Test 06/14/18 10:38 06/14/18 11:06 06/14/18 16:21 06/14/18 21:03 White Blood Count 9.4 x10^3/uL (4.0-11.0) Red Blood Count 4.50 x10^6/uL (4.30-5.70) Hemoglobin 13.6 g/dL (13.0-17.5) Hematocrit 41.2 % (39.0-53.0) Mean Corpuscular Volume 92 fL (79-100) Mean Corpuscular Hemoglobin 30 pg (25-35) Mean Corpuscular Hemoglobin Concent 33 g/dL (31-37) Red Cell Distribution Width 14.4 % (11.5-14.5) Platelet Count 273 x10^3/uL (140-400) Neutrophils (%) (Auto) 76 % (31-73) Lymphocytes (%) (Auto) 13 % (24-48) Monocytes (%) (Auto) 8 % (0-9) Eosinophils (%) (Auto) 2 % (0-3) Basophils (%) (Auto) 1 % (0-3) Neutrophils # (Auto) 7.2 x10^3uL (1.8-7.7) Lymphocytes # (Auto) 1.2 x10^3/uL (1.0-4.8) Monocytes # (Auto) 0.7 x10^3/uL (0.0-1.1) Eosinophils # (Auto) 0.2 x10^3/uL (0.0-0.7) Basophils # (Auto) 0.1 x10^3/uL (0.0-0.2) Sodium Level 146 mmol/L (136-145) Potassium Level 3.3 mmol/L (3.5-5.1) Chloride Level 108 mmol/L (98-107) Carbon Dioxide Level 25 mmol/L (21-32) Anion Gap 13 (6-14) Blood Urea Nitrogen 39 mg/dL (8-26) Creatinine 1.6 mg/dL (0.7-1.3) Estimated GFR (Cockcroft-Gault) 41.9 Glucose Level 136 mg/dL (70-99) Calcium Level 8.6 mg/dL (8.5-10.1) Glucose (Fingerstick) 117 mg/dL (70-99) 120 mg/dL (70-99) 130 mg/dL (70-99) Test 06/15/18 06:58 06/15/18 10:04 06/15/18 10:08 06/15/18 12:11 Glucose (Fingerstick) 100 mg/dL (70-99) 124 mg/dL (70-99) 160 mg/dL (70-99) Activated Clotting Time 282 sec (92-181) Laboratory Tests Test 06/14/18 16:21 06/14/18 21:03 06/15/18 06:58 06/15/18 10:04 Glucose (Fingerstick) 120 mg/dL (70-99) 130 mg/dL (70-99) 100 mg/dL (70-99) Activated Clotting Time 282 sec (92-181) Test 06/15/18 10:08 06/15/18 12:11 Glucose (Fingerstick) 124 mg/dL (70-99) 160 mg/dL (70-99) Microbiology 06/10/18 Urine Culture - Final, Complete 06/10/18 Urine Culture Result 1 (JENARO) - Final, Complete 06/12/18 Anaerobic/Aerobic Culture, Resulted Pending 06/12/18 Anaerobic Culture Result 1 (JENARO), Resulted Pending 06/12/18 Aerobic Culture, Resulted Pending 06/12/18 Aerobic Culture Result 1 (JENARO), Resulted Pending 06/12/18 Gram Stain - Final, Resulted 06/12/18 Gram Stain Result 1 (JENARO) - Final, Resulted 06/12/18 Gram Stain Result 2 (JENARO) - Final, Resulted 06/12/18 Gram Stain Result 3 (JENARO) - Final, Resulted Medications Current Medications Aspirin ([employer] Aspirin) 325 mg DAILY PO Last administered on 06/13/18at 09:13; Start 06/11/18 at 09:00 Atorvastatin Calcium (Lipitor) 40 mg HS PO Last administered on 06/14/18at 21:08 ; Start 06/10/18 at 21:00 Furosemide (Lasix) 40 mg DAILY PO Last administered on 06/14/18at 15:51; Start 06/11/18 at 09:00 Celecoxib (CeleBREX) 200 mg DAILY PO Last administered on 06/14/18 15:51; Start 06/11/18 at 09:00 Non-Formulary Medication (Empagliflozin (Jardiance)) 25 mg DAILY PO ; Start 06/11 at 09:00; Stop 06/13/18 at 07:26; Status DC Glimepiride (Amaryl) 4 mg DAILY PO Last administered on 06/14/18 15:52; Start 06/11/18 at 09:00 Metformin HCl (Glucophage) 500 mg BIDWMEALS PO Last administered on 06/14/18 17:17; Start 06/10/18 at 17:30 Non-Formulary Medication (Valsartan/ Hydrochlorothiazide (Diovan Hct 160-12.5 Mg Tab)) 1 each DAILY PO ; Start 06/11/18 at 09:00; Status UNV Piperacillin Sod/ Tazobactam Sod 3.375 gm/Sodium Chloride 50 ml @ 100 mls/hr Q6HRS IV Last administered on 06/15/18at 01:00; Start 06/10/18 at 17:30 Vancomycin HCl (Vanco Per Pharmacy) 1 each PRN DAILY PRN MC SEE COMMENTS Last administered on 06/12/18at 10:52; Start 06/10/18 at 16:45; Stop 06/12/18 at 13:51 ; Status DC Vancomycin HCl 2 gm/Sodium Chloride 500 ml @ 250 mls/hr 1X ONCE IV Last administered on 06/10/18at 18:12; Start 06/10/18 at 17:30; Stop 06/10/18 at 19:29; Status DC Losartan Potassium (Cozaar) 100 mg DAILY PO Last administered on 06/14/18at 15: 52; Start 06/11/18 at 09:00 Hydrochlorothiazide (Microzide) 12.5 mg DAILY PO Last administered on at 09:00; Start 06/11/18 at 09:00 Nicotine (Nicoderm Cq 21mg) 1 patch PRN DAILY PRN TD SMOKING CESSATION; Start 06/10/18 at 18:45 Vancomycin HCl 1.5 gm/Sodium Chloride 500 ml @ 250 mls/hr Q24H IV Last administered on 06/11/18at 18:03; Start 06/11/18 at 18:00; Stop 06/12/18 at 13:51; Status DC Vancomycin HCl (Vancomycin Trough Level) 1 each 1X ONCE MC ; Start 06/12/18 at 17:30; Stop 06/12/18 at 17:31; Status Cancel Ondansetron HCl (Zofran) 4 mg PRN Q6HRS PRN IV NAUSEA/VOMITING; Start 06/12/18 at 07:00; Stop 06/12/18 at 11:49; Status DC Fentanyl Citrate (Fentanyl 2ml Vial) 25 mcg PRN Q5MIN PRN IV MILD PAIN; Start 06/12/18 at 07:00; Stop 06/12/18 at 11:49; Status DC Fentanyl Citrate (Fentanyl 2ml Vial) 50 mcg PRN Q5MIN PRN IV MODERATE TO SEVERE PAIN; Start 06/12/18 at 07:00; Stop 06/12/18 at 11:49; Status DC Morphine Sulfate (Morphine Sulfate) 1 mg PRN Q10MIN PRN IV SEVERE PAIN; Start 06/12/18 at 07:00; Stop 06/12/18 at 11:49; Status DC Ringer's Solution 1,000 ml @ 30 mls/hr Q24H IV ; Start 06/12/18 at 07:00; Stop 06/12/18 at 11:49; Status DC Lidocaine HCl (Xylocaine-Mpf 1% 2ml Vial) 2 ml PRN 1X PRN ID PRIOR TO IV START ; Start 06/12/18 at 07:00; Stop 06/12/18 at 11:49; Status DC Hydromorphone HCl (Dilaudid) 0.5 mg PRN Q10MIN PRN IV SEV PAIN, Second choice; Start 06/12/18 at 07:00; Stop 06/12/18 at 11:49; Status DC Prochlorperazine Edisylate (Compazine) 5 mg PACU PRN PRN IV NAUSEA, MRX1; Start 06/12/18 at 07:00; Stop 06/12/18 at 11:49; Status DC Lactobacillus Rhamnosus (Culturelle) 1 cap BID PO Last administered on at 21:08; Start 06/12/18 at 21:00 Propofol 20 ml @ As Directed STK-MED ONCE IV ; Start 06/12/18 at 07:48; Stop 01/21 at 07:49; Status DC Lidocaine HCl (Lidocaine Pf 2% Vial) 5 ml STK-MED ONCE .ROUTE ; Start 06/12/18 at 07:48; Stop 06/12/18 at 07:49; Status DC Fentanyl Citrate (Fentanyl 2ml Vial) 100 mcg STK-MED ONCE .ROUTE ; Start at 08:11; Stop 06/12/18 at 08:13; Status DC Dexamethasone Sodium Phosphate (Decadron) 20 mg STK-MED ONCE .ROUTE ; Start 01/21 at 08:20; Stop 06/12/18 at 08:21; Status DC Ondansetron HCl (Zofran) 4 mg STK-MED ONCE .ROUTE ; Start 06/12/18 at 08:20; Stop 06/12/18 at 08:21; Status DC Sevoflurane (Ultane) 15 ml STK-MED ONCE IH ; Start 06/12/18 at 08:20; Stop 06/12 at 08:21; Status DC Daptomycin 540 mg/ Sodium Chloride 50 ml @ 100 mls/hr Q24H IV ; Start 06/12/18 at 14:00; Stop 06/12/18 at 14:00; Status DC Daptomycin 500 mg/ Sodium Chloride 50 ml @ 100 mls/hr Q24H IV Last administered on 06/14/18at 16:31; Start 06/12/18 at 16:00 Insulin Human Lispro (HumaLOG) 5 units 1X ONCE SQ Last administered on at 23:19; Start 06/12/18 at 21:30; Stop 06/12/18 at 22:32; Status DC Multivitamins (Thera M Plus) 1 tab DAILY PO Last administered on 06/14/18at 15: 52; Start 06/13/18 at 10:00 Sodium Chloride 1,000 ml @ 125 mls/hr 1X ONCE IV Last administered on at 16:19; Start 06/13/18 at 15:00; Stop 06/13/18 at 22:59; Status DC Sodium Chloride 250 ml @ 250 mls/hr 1X ONCE IV Last administered on at 16:19; Start 06/13/18 at 15:00; Stop 06/13/18 at 15:59; Status DC Iodixanol (Visipaque 320) 100 ml STK-MED ONCE .ROUTE ; Start 06/14/18 at 13:01; Stop 06/14/18 at 13:02; Status DC Lidocaine HCl (Lidocaine 1% 20ml Vial) 20 ml STK-MED ONCE .ROUTE ; Start at 13:01; Stop 06/14/18 at 13:02; Status DC Heparin Sodium/ Sodium Chloride 1,500 ml @ As Directed STK-MED ONCE .ROUTE ; Start 06/14/18 at 13:01; Stop 06/14/18 at 13:02; Status DC Midazolam HCl (Versed) 5 mg STK-MED ONCE .ROUTE ; Start 06/14/18 at 14:10; Stop 06/14/18 at 14:13; Status DC Fentanyl Citrate (Fentanyl 2ml Vial) 100 mcg STK-MED ONCE .ROUTE ; Start at 14:11; Stop 06/14/18 at 14:13; Status DC Heparin Sodium (Porcine) (Heparin Sodium) 10,000 unit STK-MED ONCE .ROUTE ; Start 06/14/18 at 14:11; Stop 06/14/18 at 14:13; Status DC Heparin Sodium/ Sodium Chloride (HEPARIN for ARTERIAL LINE FLUSH) 1,000 unit 1X ONCE IART Last administered on 06/14/18at 14:48; Start 06/14/18 at 14:15; Stop 06/14/18 at 14:27; Status DC Heparin Sodium/ Sodium Chloride (HEPARIN for ARTERIAL LINE FLUSH) 1,000 unit 1X ONCE IART Last administered on 06/14/18at 14:51; Start 06/14/18 at 14:15; Stop 06/14/18 at 14:27; Status DC Midazolam HCl (Versed) 5 mg 1X ONCE IV Last administered on 06/14/18at 14:53; Start 06/14/18 at 14:15; Stop 06/14/18 at 14:27; Status DC Fentanyl Citrate (Fentanyl 2ml Vial) 100 mcg 1X ONCE IV Last administered on 14:53; Start 06/14/18 at 14:15; Stop 06/14/18 at 14:27; Status DC Iodixanol (Visipaque 320) 100 ml 1X ONCE IART Last administered on 06/14/18at 14:52; Start 06/14/18 at 14:15; Stop 06/14/18 at 14:27; Status DC Lidocaine HCl 20 ml 1X ONCE IJ ; Start 06/14/18 at 14:15; Stop 06/14/18 at 14: 16; Status Cancel Info (CONTRAST GIVEN -- Rx MONITORING) 1 each PRN DAILY PRN MC SEE COMMENTS; Start 06/14/18 at 14:30; Stop 06/16/18 at 14:29 Lidocaine HCl (Lidocaine 1% 20ml Vial) 20 ml 1X ONCE INJ Last administered on 06/14/18at 14:54; Start 06/14/18 at 15:00; Stop 06/14/18 at 15:01; Status DC Potassium Chloride (Klor-Con) 40 meq 1X ONCE PO Last administered on at 17:18; Start 06/14/18 at 14:45; Stop 06/14/18 at 14:53; Status DC Ondansetron HCl (Zofran) 4 mg PRN Q6HRS PRN IV NAUSEA/VOMITING; Start 06/15/18 at 07:00; Stop 06/16/18 at 06:59 Fentanyl Citrate (Fentanyl 2ml Vial) 25 mcg PRN Q5MIN PRN IV MILD PAIN; Start 06/15/18 at 07:00; Stop 06/16/18 at 06:59 Fentanyl Citrate (Fentanyl 2ml Vial) 50 mcg PRN Q5MIN PRN IV MODERATE TO SEVERE PAIN; Start 06/15/18 at 07:00; Stop 06/16/18 at 06:59 Morphine Sulfate (Morphine Sulfate) 1 mg PRN Q10MIN PRN IV SEVERE PAIN; Start 06/15/18 at 07:00; Stop 06/16/18 at 06:59 Ringer's Solution 1,000 ml @ 30 mls/hr Q24H IV ; Start 06/15/18 at 07:00; Stop 06/15/18 at 18:59 Hydromorphone HCl (Dilaudid) 0.5 mg PRN Q10MIN PRN IV SEV PAIN, Second choice; Start 06/15/18 at 07:00; Stop 06/16/18 at 06:59 Prochlorperazine Edisylate (Compazine) 5 mg PACU PRN PRN IV NAUSEA, MRX1; Start 06/15/18 at 07:00; Stop 06/16/18 at 06:59 Sodium Chloride 1,000 ml @ 100 mls/hr Q10H IV Last administered on 06/15/18at 03:33; Start 06/14/18 at 16:15 Cefazolin Sodium 1 gm/Sodium Chloride 500 ml @ 500 mls/hr ONCE ONCE IRR Last administered on 06/15/18at 08:08; Start 06/15/18 at 06:00; Stop 06/15/18 at 06:59 ; Status DC Heparin Sodium (Porcine) 5000 unit/Sodium Chloride 505 ml @ 505 mls/hr ONCE ONCE IRR Last administered on 06/15/18at 08:08; Start 06/15/18 at 06:00; Stop at 06:59; Status DC Iohexol (Omnipaque 300 Mg/ml) 100 ml Healthbox-InStitchu ONCE .ROUTE Last administered on at 08:08; Start 06/15/18 at 05:57; Stop 06/15/18 at 06:57; Status DC Cellulose (Surgicel Fibrillar 1x2) 1 each STK-MED ONCE .ROUTE Last administered on 06/15/18at 10:32; Start 06/15/18 at 05:57; Stop 06/15/18 at 06:57 ; Status DC Rocuronium [place] (Zemuron) 50 mg STK-MED ONCE .ROUTE ; Start 06/15/18 at 07:15 ; Stop 06/15/18 at 07:16; Status DC Fentanyl Citrate (Fentanyl 2ml Vial) 100 mcg STK-MED ONCE .ROUTE ; Start at 07:15; Stop 06/15/18 at 07:17; Status DC Sevoflurane (Ultane) 90 ml STK-MED ONCE IH ; Start 06/15/18 at 07:16; Stop 06/15 at 07:17; Status DC Phenylephrine HCl (Bobby-Synephrine Inj) 10 mg STK-MED ONCE .ROUTE ; Start at 07:16; Stop 06/15/18 at 07:17; Status DC Dexamethasone Sodium Phosphate (Decadron) 20 mg STK-MED ONCE .ROUTE ; Start at 07:16; Stop 06/15/18 at 07:17; Status DC Ondansetron HCl (Zofran) 4 mg STK-MED ONCE .ROUTE ; Start 06/15/18 at 07:16; Stop 06/15/18 at 07:17; Status DC Lidocaine HCl (Lidocaine Pf 2% Vial) 5 ml STK-MED ONCE .ROUTE ; Start 06/15/18 at 07:16; Stop 06/15/18 at 07:17; Status DC Propofol 20 ml @ As Directed STK-MED ONCE IV ; Start 06/15/18 at 07:16; Stop at 07:17; Status DC Bupivacaine HCl/ Epinephrine Bitart (Sensorcaine-Epi 0.25%-1:141638 Mpf) 30 ml STK-MED ONCE .ROUTE Last administered on 06/15/18at 08:08; Start 06/15/18 at 07: 06; Stop 06/15/18 at 08:07; Status DC Rocuronium [place] (Zemuron) 50 mg STK-MED ONCE .ROUTE ; Start 06/15/18 at 08:48 ; Stop 06/15/18 at 08:49; Status DC Protamine Sulfate (Protamine) 50 mg STK-MED ONCE IV ; Start 06/15/18 at 10:31; Stop 06/15/18 at 10:33; Status DC Neostigmine Methylsulfate (Bloxiverz) 10 mg STK-MED ONCE .ROUTE ; Start at 10:52; Stop 06/15/18 at 10:53; Status DC Glycopyrrolate (Robinul) 1 mg STK-MED ONCE .ROUTE ; Start 06/15/18 at 10:52; Stop 06/15/18 at 10:53; Status DC Morphine Sulfate (Morphine Sulfate) 10 mg STK-MED ONCE .ROUTE ; Start 06/15/18 at 11:00; Stop 06/15/18 at 11:01; Status DC Ondansetron HCl (Zofran) 4 mg PRN Q6HRS PRN IV NAUSEA/VOMITING; Start 06/15/18 at 11:15; Stop 06/15/18 at 20:00 Fentanyl Citrate (Fentanyl 2ml Vial) 25 mcg PRN Q5MIN PRN IV MILD PAIN; Start 06/15/18 at 11:15; Stop 06/15/18 at 20:00 Fentanyl Citrate (Fentanyl 2ml Vial) 50 mcg PRN Q5MIN PRN IV MODERATE TO SEVERE PAIN; Start 06/15/18 at 11:15; Stop 06/15/18 at 20:00 Morphine Sulfate (Morphine Sulfate) 1 mg PRN Q10MIN PRN IV SEVERE PAIN; Start 06/15/18 at 11:15; Stop 06/15/18 at 20:00 Ringer's Solution 1,000 ml @ 30 mls/hr Q24H IV ; Start 06/15/18 at 11:06; Stop 06/15/18 at 23:05 Lidocaine HCl (Xylocaine-Mpf 1% 2ml Vial) 2 ml PRN 1X PRN ID PRIOR TO IV START ; Start 06/15/18 at 11:15; Stop 06/15/18 at 20:00 Hydromorphone HCl (Dilaudid) 0.5 mg PRN Q10MIN PRN IV SEV PAIN, Second choice; Start 06/15/18 at 11:15; Stop 06/15/18 at 20:00 Prochlorperazine Edisylate (Compazine) 5 mg PACU PRN PRN IV NAUSEA, MRX1; Start 06/15/18 at 11:15; Stop 06/15/18 at 20:00 Lidocaine HCl (Lidocaine Pf 2% Vial) 5 ml STK-MED ONCE .ROUTE ; Start 06/15/18 at 11:10; Stop 06/15/18 at 11:11; Status DC Oxycodone HCl (Roxicodone) 5 mg PRN Q3HRS PRN PO PAIN; Start 06/15/18 at 12:15 Diphenhydramine HCl (Benadryl) 25 mg PRN Q6HRS PRN PO ITCHING; Start 06/15/18 at 12:15 Diphenhydramine HCl (Benadryl) 25 mg PRN Q6HRS PRN IV ITCHING; Start 06/15/18 at 12:15 Zolpidem Tartrate (Ambien) 5 mg PRN QHS PRN PO INSOMNIA; Start 06/15/18 at 12: 15 Info (Non-Icu Electrolyte Protocol) 1 ea DAILY MC ; Start 06/16/18 at 09:00 Naloxone HCl (Narcan) 0.1 mg PRN Q2MIN PRN IV ADMIN; Start 06/15/18 at 12:15 Sodium Chloride (Normal Saline Flush) 3 ml QSHIFT PRN IV AFTER MEDS AND BLOOD DRAWS; Start 06/15/18 at 12:15 Sodium Chloride 1,000 ml @ 100 mls/hr Q10H IV ; Start 06/15/18 at 13:00 Oxycodone/ Acetaminophen (Percocet 5/325) 1 tab PRN Q4HRS PRN PO MILD PAIN, 1ST CHOICE; Start 06/15/18 at 12:15 Oxycodone/ Acetaminophen (Percocet 5/325) 2 tab PRN Q4HRS PRN PO MODERATE PAIN , SEVERE PAIN; Start 06/15/18 at 12:15 Morphine Sulfate (Morphine Sulfate) 2 mg PRN Q1HR PRN IV PAIN; Start 06/15/18 at 12:15 Docusate Sodium (Colace) 100 mg PRN BID PRN PO constipation; Start 06/15/18 at 12:15 Ondansetron HCl (Zofran) 4 mg PRN Q6HRS PRN IV NAUESA, 1ST CHOICE; Start at 12:15 Prochlorperazine Edisylate (Compazine) 5 mg PRN Q6HRS PRN IV N/V, 2nd Choice, MR X1; Start 06/15/18 at 12:15 Hydralazine HCl (Apresoline Inj) 5 mg PRN Q4HRS PRN IVP ELEVATED BP, SEE COMMENTS; Start 06/15/18 at 12:15 Labetalol HCl (Normodyne Iv Push) 10 mg PRN Q2HR PRN IVP HYPERTENSION, SEE COMMENTS; Start 06/15/18 at 12:15 Active Scripts Active Reported Aspirin 325 Mg Tablet 325 Mg PO DAILY Celebrex (Celecoxib) 200 Mg Capsule 200 Mg PO DAILY 30 Days Furosemide 40 Mg Tablet 40 Mg PO DAILY Diovan Hct 160-12.5 Mg Tab (Valsartan/Hydrochlorothiazide) 1 Each Tablet 1 Each PO DAILY Atorvastatin Calcium 40 Mg Tablet 40 Mg PO HS Jardiance (Empagliflozin) 25 Mg Tablet 25 Mg PO DAILY Glimepiride 4 Mg Tablet 4 Mg PO DAILY Metformin Hcl 500 Mg Tablet 500 Mg PO BIDWMEALS Vitals/I & O Vital Sign - Last 24 Hours 06/14/18 06/14/18 06/14/18 06/14/18 13:45 14:15 14:44 14:45 Pulse 72 68 66 71 Resp 18 18 18 18 B/P (MAP) 128/60 (82) 136/59 (84) 120/83 (95) Pulse Ox 93 94 96 96 O2 Delivery Room Air Room Air Nasal Cannula Room Air O2 Flow Rate 2.0 06/14/18 06/14/18 06/14/18 06/14/18 14:53 15:10 15:15 15:52 Pulse 75 Resp 18 18 B/P (MAP) 121/60 (80) 129/80 (96) 146/56 Pulse Ox 96 96 O2 Delivery Nasal Cannula Room Air O2 Flow Rate 2.0 06/14/18 06/14/18 06/15/18 06/15/18 19:00 23:00 03:00 06:40 Temp 97.7 98.5 99.1 98.2 97.7 98.5 99.1 98.2 Pulse 75 66 63 58 Resp 18 18 18 13 B/P (MAP) 125/60 (81) 130/62 (84) 112/43 (66) 143/65 Pulse Ox 94 97 97 96 O2 Delivery Room Air 06/15/18 06/15/18 06/15/18 06/15/18 12:00 12:00 12:00 12:15 Temp 98.3 98.3 Pulse 75 75 68 Resp 14 14 B/P (MAP) 131/62 (85) 131/62 112/46 Pulse Ox 100 96 O2 Delivery Mask Simple Mask Room Air O2 Flow Rate 10 10 06/15/18 06/15/18 06/15/18 06/15/18 12:30 12:45 13:00 13:00 Pulse 70 68 66 Resp 15 15 B/P (MAP) 107/48 122/46 116/46 (69) Pulse Ox 94 98 O2 Delivery Room Air Nasal Cannula Nasal Cannula O2 Flow Rate 2 2 06/15/18 06/15/18 06/15/18 13:00 13:00 13:15 Temp 98.1 98.1 98.1 98.1 Pulse 62 66 62 Resp 14 16 16 B/P (MAP) 121/46 122/46 124/49 Pulse Ox 98 98 98 O2 Delivery Nasal Cannula Nasal Cannula Nasal Cannula O2 Flow Rate 2 2 2 Intake and Output 06/14/18 06/14/18 06/15/18 14:59 22:59 06:59 Intake Total 300 ml 1000 ml Output Total 1300 ml Balance 300 ml -300 ml MULUGETA BURRIS MD Jun 15, 2018 13:47
--- NOTE | 2018-06-15 14:00 | NUR ---
Received Pt transfer from PACU post right fem-tibial bypass and great toe amputation. Pt reports pain 3/10 which is tolerable and refused pain medication at this time. No complaints of SOB. Pt A&Ox4. Provided unit routines, call light within reach, will continue to monitor.
[2018-06-15 15:00] VITALS: BP 124/55
[2018-06-15] MEDS: DAPTOmycin (GENERIC) IVPB 500 MG in IV NORMAL SALINE 50ML 50 ML IV SCH (16:23)
[2018-06-15 16:27] LABS: PROTHROMBIN TIME PATIENT 16.1 SEC (11.7-14.0)
[2018-06-15 16:33] LABS: CALCIUM 8.1 mg/dL (8.5-10.1); CREATININE 1.4 mg/dL (0.7-1.3); GFR 48.9; MAGNESIUM 2.1 mg/dL (1.8-2.4); POTASSIUM 4.4 mmol/L (3.5-5.1)
[2018-06-15 19:43] VITALS: BP 120/54
--- NOTE | 2018-06-15 20:31 | PDOC ---
GENERAL General: vss and afebrile. had bypass for pad and amputation great toe today. creatinine down to 1.4 today and office review of labs without history of ckd. chest clear , heart regular, and abdomen benign. await final wound cultures and continue antibiotics. VITAL SIGNS Vital Signs: Vital Signs Date Time Temp Pulse Resp B/P (MAP) Pulse Ox O2 Delivery O2 Flow Rate FiO2 06/15/18 19:43 97.6 59 16 120/54 (76) 98 Nasal Cannula 2.0 97.6 I & O I & O Intake and Output 06/15/18 07:00 Intake Total 1300 ml Output Total 1300 ml Balance 0 ml Intake Oral 300 ml IV Total 1000 ml Output Urine Total 1300 ml ALLERGIES Allergies: Allergies Coded Allergies Type Severity Reaction Last Updated Verified No Known Drug Allergies 06/10/18 No MEDS Medications: Current Medications Medications (Trade) Dose Ordered Sig/Svetlana Start Time Stop Time Status Last Admin Dose Admin Aspirin (Kaley Aspirin) 325 mg DAILY 06/11/18 09:00 06/13/18 09:13 325 MG Atorvastatin Calcium (Lipitor) 40 mg HS 06/10/18 21:00 06/14/18 21:08 40 MG Bupivacaine HCl/ Epinephrine Bitart (Sensorcaine-Epi 0.25%-1:[id number] Mpf) 30 ml STK-MED ONCE 06/15/18 07:06 06/15/18 08:07 DC 06/15/18 08:08 8 ML Cefazolin Sodium 1 gm/Sodium Chloride 500 ml @ 500 mls/hr ONCE ONCE 06/15/18 06:00 06/15/18 06:59 DC 06/15/18 08:08 Celecoxib (CeleBREX) 200 mg DAILY 06/11/18 09:00 06/14/18 15:51 200 MG Cellulose (Surgicel Fibrillar 1x2) 1 each STK-MED ONCE 06/15/18 05:57 06/15/18 06:57 DC 06/15/18 10:32 1 EACH Daptomycin 500 mg/ Sodium Chloride 50 ml @ 100 mls/hr Q24H 06/12/18 16:00 06/15/18 16:23 100 MLS/HR Daptomycin 540 mg/ Sodium Chloride 50 ml @ 100 mls/hr Q24H 06/12/18 14:00 06/12/18 14:00 DC Dexamethasone Sodium Phosphate (Decadron) 20 mg STK-MED ONCE 06/15/18 07:16 06/15/18 07:17 DC Diphenhydramine HCl (Benadryl) 25 mg PRN Q6HRS PRN 06/15/18 12:15 Docusate Sodium (Colace) 100 mg PRN BID PRN 06/15/18 12:15 Fentanyl Citrate (Fentanyl 2ml Vial) 50 mcg PRN Q5MIN PRN 06/15/18 11:15 06/15/18 20:00 DC Furosemide (Lasix) 40 mg DAILY 06/11/18 09:00 06/14/18 15:51 40 MG Glimepiride (Amaryl) 4 mg DAILY 06/11/18 09:00 06/14/18 15:52 4 MG Glycopyrrolate (Robinul) 1 mg STK-MED ONCE 06/15/18 10:52 06/15/18 10:53 DC Heparin Sodium (Porcine) (Heparin Sodium) 10,000 unit STK-MED ONCE 06/14/18 14:11 06/14/18 14:13 DC Heparin Sodium (Porcine) 5000 unit/Sodium Chloride 505 ml @ 505 mls/hr ONCE ONCE 06/15/18 06:00 06/15/18 06:59 DC 06/15/18 08:08 Heparin Sodium/ Sodium Chloride (HEPARIN for ARTERIAL LINE FLUSH) 1,000 unit 1X ONCE 06/14/18 14:15 06/14/18 14:27 DC 06/14/18 14:51 1,000 UNIT Hydralazine HCl (Apresoline Inj) 5 mg PRN Q4HRS PRN 06/15/18 12:15 Hydrochlorothiazide (Microzide) 12.5 mg DAILY 06/11/18 09:00 06/15/18 09:00 12.5 MG Hydromorphone HCl (Dilaudid) 0.5 mg PRN Q10MIN PRN 06/15/18 11:15 06/15/18 20:00 DC Info (CONTRAST GIVEN -- Rx MONITORING) 1 each PRN DAILY PRN 06/14/18 14:30 06/16/18 14:29 Info (Non-Icu Electrolyte Protocol) 1 ea DAILY 06/16/18 09:00 Insulin Human Lispro (HumaLOG) 5 units 1X ONCE 06/12/18 21:30 06/12/18 22:32 DC 06/12/18 23:19 5 UNITS Iodixanol (Visipaque 320) 100 ml 1X ONCE 06/14/18 14:15 06/14/18 14:27 DC 06/14/18 14:52 54 ML Iohexol (Omnipaque 300 Mg/ml) 100 ml STK-MED ONCE 06/15/18 05:57 06/15/18 06:57 DC 06/15/18 08:08 50 ML Labetalol HCl (Normodyne Iv Push) 10 mg PRN Q2HR PRN 06/15/18 12:15 Lactobacillus Rhamnosus (Culturelle) 1 cap BID 06/12/18 21:00 06/14/18 21:08 1 CAP Lidocaine HCl (Lidocaine 1% 20ml Vial) 20 ml 1X ONCE 06/14/18 15:00 06/14/18 15:01 DC 06/14/18 14:54 20 ML Lidocaine HCl (Lidocaine Pf 2% Vial) 5 ml STK-MED ONCE 06/15/18 11:10 06/15/18 11:11 DC Lidocaine HCl (Xylocaine-Mpf 1% 2ml Vial) 2 ml PRN 1X PRN 06/15/18 11:15 06/15/18 20:00 DC Losartan Potassium (Cozaar) 100 mg DAILY 06/11/18 09:00 06/14/18 15:52 100 MG Metformin HCl (Glucophage) 500 mg BIDWMEALS 06/10/18 17:30 06/15/18 17:51 500 MG Midazolam HCl (Versed) 5 mg 1X ONCE 06/14/18 14:15 06/14/18 14:27 DC 06/14/18 14:53 1 MG Morphine Sulfate (Morphine Sulfate) 2 mg PRN Q1HR PRN 06/15/18 12:15 Multivitamins (Thera M Plus) 1 tab DAILY 06/13/18 10:00 06/14/18 15:52 1 TAB Naloxone HCl (Narcan) 0.1 mg PRN Q2MIN PRN 06/15/18 12:15 Neostigmine Methylsulfate (Bloxiverz) 10 mg STK-MED ONCE 06/15/18 10:52 06/15/18 10:53 DC Nicotine (Nicoderm Cq 21mg) 1 patch PRN DAILY PRN 06/10/18 18:45 Non-Formulary Medication (Empagliflozin (Jardiance)) 25 mg DAILY 06/11/18 09:00 06/13/18 07:26 DC Non-Formulary Medication (Valsartan/ Hydrochlorothiazide (Diovan Hct 160-12.5 Mg Tab)) 1 each DAILY 06/11/18 09:00 UNV Ondansetron HCl (Zofran) 4 mg PRN Q6HRS PRN 06/15/18 12:15 Oxycodone HCl (Roxicodone) 5 mg PRN Q3HRS PRN 06/15/18 12:15 Oxycodone/ Acetaminophen (Percocet 5/325) 2 tab PRN Q4HRS PRN 06/15/18 12:15 Phenylephrine HCl (Bobby-Synephrine Inj) 10 mg STK-MED ONCE 06/15/18 07:16 06/15/18 07:17 DC Piperacillin Sod/ Tazobactam Sod 3.375 gm/Sodium Chloride 50 ml @ 100 mls/hr Q6HRS 06/10/18 17:30 06/15/18 17:54 100 MLS/HR Potassium Chloride (Klor-Con) 40 meq 1X ONCE 06/14/18 14:45 06/14/18 14:53 DC 06/14/18 17:18 40 MEQ Prochlorperazine Edisylate (Compazine) 5 mg PRN Q6HRS PRN 06/15/18 12:15 Propofol 20 ml @ As Directed STK-MED ONCE 06/15/18 07:16 06/15/18 07:17 DC Protamine Sulfate (Protamine) 50 mg STK-MED ONCE 06/15/18 10:31 06/15/18 10:33 DC Ringer's Solution 1,000 ml @ 30 mls/hr Q24H 06/15/18 11:06 06/15/18 15:55 DC Rocuronium [place] (Zemuron) 50 mg STK-MED ONCE 06/15/18 08:48 06/15/18 08:49 DC Sevoflurane (Ultane) 90 ml STK-MED ONCE 06/15/18 07:16 06/15/18 07:17 DC Sodium Chloride 1,000 ml @ 100 mls/hr Q10H 06/15/18 13:00 Cancel Sodium Chloride (Normal Saline Flush) 3 ml QSHIFT PRN 06/15/18 12:15 Vancomycin HCl (Vanco Per Pharmacy) 1 each PRN DAILY PRN 06/10/18 16:45 06/12/18 13:51 DC 06/12/18 10:52 1 EACH Vancomycin HCl (Vancomycin Trough Level) 1 each 1X ONCE 06/12/18 17:30 06/12/18 17:31 Cancel Vancomycin HCl 1.5 gm/Sodium Chloride 500 ml @ 250 mls/hr Q24H 06/11/18 18:00 06/12/18 13:51 DC 06/11/18 18:03 250 MLS/HR Vancomycin HCl 2 gm/Sodium Chloride 500 ml @ 250 mls/hr 1X ONCE 06/10/18 17:30 06/10/18 19:29 DC 06/10/18 18:12 250 MLS/HR Zolpidem Tartrate (Ambien) 5 mg PRN QHS PRN 06/15/18 12:15 LAB Lab: Laboratory Tests Test 06/14/18 21:03 06/15/18 06:58 06/15/18 10:04 06/15/18 10:08 Glucose (Fingerstick) 130 mg/dL (70-99) 100 mg/dL (70-99) 124 mg/dL (70-99) Activated Clotting Time 282 sec (92-181) Test 06/15/18 12:11 06/15/18 15:45 06/15/18 16:35 Glucose (Fingerstick) 160 mg/dL (70-99) 240 mg/dL (70-99) Prothrombin Time 16.1 SEC (11.7-14.0) Prothromb Time International Ratio 1.3 (0.8-1.1) Sodium Level 144 mmol/L (136-145) Potassium Level 4.4 mmol/L (3.5-5.1) Chloride Level 108 mmol/L (98-107) Carbon Dioxide Level 21 mmol/L (21-32) Anion Gap 15 (6-14) Blood Urea Nitrogen 31 mg/dL (8-26) Creatinine 1.4 mg/dL (0.7-1.3) Estimated GFR (Cockcroft-Gault) 48.9 Glucose Level 256 mg/dL (70-99) Calcium Level 8.1 mg/dL (8.5-10.1) Magnesium Level 2.1 mg/dL (1.8-2.4) MERLYN CORDOBA MD Jun 15, 2018 20:31
[2018-06-15] MEDS: ATORVASTATIN CALCIUM 40 MG TABLET. PO SCH (21:30)
[2018-06-15 23:25] VITALS: BP 124/56
[2018-06-16 02:11] VITALS: BP 125/50
[2018-06-16] MEDS: IV NORMAL SALINE 1000ML BAG 1,000 ML IV SCH (03:03)
[2018-06-16 04:49] LABS: BASO % 1 % (0-3); EOS # 0.1 x10^3/uL (0.0-0.7); EOS % 1 % (0-3); HEMATOCRIT 38.6 % (39.0-53.0); HEMOGLOBIN 12.5 g/dL (13.0-17.5); LYMPH # 1.1 x10^3/uL (1.0-4.8); LYMPH % 11 % (24-48); MEAN CORPUSCULAR HEMOGLOBIN 30 pg (25-35); MEAN CORPUSCULAR HGB CONC 32 g/dL (31-37); MEAN CORPUSCULAR VOLUME 92 fL (79-100); MONO # 0.8 x10^3/uL (0.0-1.1); MONO % 8 % (0-9); NEUT # 8.1 x10^3uL (1.8-7.7); NEUT % 80 % (31-73); PLATELET COUNT 288 x10^3/uL (140-400); RED CELL DISTRIBUTION WIDTH 14.5 % (11.5-14.5); WHITE BLOOD COUNT 10.1 x10^3/uL (4.0-11.0)
[2018-06-16 05:05] LABS: CALCIUM 8.2 mg/dL (8.5-10.1); CREATININE 1.7 mg/dL (0.7-1.3); GFR 39.1; POTASSIUM 3.6 mmol/L (3.5-5.1)
[2018-06-16] MEDS: PIPERACILLIN/TAZOBACTAM 3.375 GM in IV NORMAL SALINE 50ML 50 ML IV SCH (05:27)
[2018-06-16 07:00] VITALS: BP 137/48
[2018-06-16] MEDS: ELECTROLYTE (NON-ICU) PROTOCOL MC SCH (09:00)
[2018-06-16] MEDS: CELECOXIB 100 MG CAPSULE. PO SCH (09:05)
[2018-06-16] MEDS: ASPIRIN 325 MG TABLET PO SCH (09:05)
[2018-06-16] MEDS: LACTOBACILLUS RHAMNOSUS GG 1 CAPSULE. PO SCH ×2 (09:06→20:39)
[2018-06-16] MEDS: hydroCHLOROthiazide 12.5 MG CAPSULE PO SCH (09:06)
[2018-06-16] MEDS: GLIMEPIRIDE 2 MG TABLET. PO SCH (09:06)
[2018-06-16] MEDS: MULTIVITAMIN with MINERAL TABLET. PO SCH (09:07)
[2018-06-16] MEDS: FUROSEMIDE 40 MG TABLET. PO SCH (09:07)
[2018-06-16] MEDS: LOSARTAN POTASSIUM 50 MG TABLET. PO SCH (09:07)
[2018-06-16] MEDS: metFORMIN 500 MG TABLET PO SCH ×2 (09:07→17:39)
--- NOTE | 2018-06-16 09:30 | PDOC ---
Infectious Disease Note Subjective Subjective Discouraged Occ loose stool Pain controlled Denies N/V/F/C/SOA/Rash Vital Sign Vital Signs Vital Signs Date Time Temp Pulse Resp B/P (MAP) Pulse Ox O2 Delivery O2 Flow Rate FiO2 06/16/18 09:07 64 137/48 06/16/18 07:00 98.4 16 96 Nasal Cannula 2.0 98.4 Physical Exam PHYSICAL EXAM GENERAL: Propped up in bed, alert, eating HEENT: Normal conjunctivae. Oral cavity: Pharynx pink and moist. LUNGS: Clear to auscultation. HEART: S1, S2. ABDOMEN: Nondistended, soft and nontender with bowel sounds present. EXTREMITIES: Unremarkable except right foot with trace edema and mild redness extending to mid ankle. Wound vac in place SKIN: Warm without rash. NEUROLOGIC: Alert, responds appropriately. PIV Labs Lab Laboratory Tests Test 06/15/18 10:04 06/15/18 10:08 06/15/18 12:11 06/15/18 15:45 Activated Clotting Time 282 sec (92-181) Glucose (Fingerstick) 124 mg/dL (70-99) 160 mg/dL (70-99) Prothrombin Time 16.1 SEC (11.7-14.0) Prothromb Time International Ratio 1.3 (0.8-1.1) Sodium Level 144 mmol/L (136-145) Potassium Level 4.4 mmol/L (3.5-5.1) Chloride Level 108 mmol/L (98-107) Carbon Dioxide Level 21 mmol/L (21-32) Anion Gap 15 (6-14) Blood Urea Nitrogen 31 mg/dL (8-26) Creatinine 1.4 mg/dL (0.7-1.3) Estimated GFR (Cockcroft-Gault) 48.9 Glucose Level 256 mg/dL (70-99) Calcium Level 8.1 mg/dL (8.5-10.1) Magnesium Level 2.1 mg/dL (1.8-2.4) Test 06/15/18 16:35 06/15/18 20:46 06/16/18 03:35 Glucose (Fingerstick) 240 mg/dL (70-99) 246 mg/dL (70-99) White Blood Count 10.1 x10^3/uL (4.0-11.0) Red Blood Count 4.20 x10^6/uL (4.30-5.70) Hemoglobin 12.5 g/dL (13.0-17.5) Hematocrit 38.6 % (39.0-53.0) Mean Corpuscular Volume 92 fL (79-100) Mean Corpuscular Hemoglobin 30 pg (25-35) Mean Corpuscular Hemoglobin Concent 32 g/dL (31-37) Red Cell Distribution Width 14.5 % (11.5-14.5) Platelet Count 288 x10^3/uL (140-400) Neutrophils (%) (Auto) 80 % (31-73) Lymphocytes (%) (Auto) 11 % (24-48) Monocytes (%) (Auto) 8 % (0-9) Eosinophils (%) (Auto) 1 % (0-3) Basophils (%) (Auto) 1 % (0-3) Neutrophils # (Auto) 8.1 x10^3uL (1.8-7.7) Lymphocytes # (Auto) 1.1 x10^3/uL (1.0-4.8) Monocytes # (Auto) 0.8 x10^3/uL (0.0-1.1) Eosinophils # (Auto) 0.1 x10^3/uL (0.0-0.7) Basophils # (Auto) 0.0 x10^3/uL (0.0-0.2) Sodium Level 140 mmol/L (136-145) Potassium Level 3.6 mmol/L (3.5-5.1) Chloride Level 103 mmol/L (98-107) Carbon Dioxide Level 23 mmol/L (21-32) Anion Gap 14 (6-14) Blood Urea Nitrogen 34 mg/dL (8-26) Creatinine 1.7 mg/dL (0.7-1.3) Estimated GFR (Cockcroft-Gault) 39.1 Glucose Level 185 mg/dL (70-99) Calcium Level 8.2 mg/dL (8.5-10.1) Phosphorus Level 4.0 mg/dL (2.6-4.7) Magnesium Level 2.0 mg/dL (1.8-2.4) Micro Microbiology 06/10/18 Urine Culture - Final, Complete 06/10/18 Urine Culture Result 1 (JENARO) - Final, Complete 06/12/18 Anaerobic/Aerobic Culture, Resulted Pending 06/12/18 Anaerobic Culture Result 1 (JENARO), Resulted Pending 06/12/18 Aerobic Culture - Preliminary, Resulted 06/12/18 Aerobic Culture Result 1 (JENARO) - Preliminary, Resulted 06/12/18 Aerobic Culture Result 2 (JENARO) - Preliminary, Resulted 06/12/18 Aerobic Culture Result 3 (JENARO) - Preliminary, Resulted 06/12/18 Antimicrobic Susceptibility - Preliminary, Resulted 06/12/18 Gram Stain - Final, Resulted 06/12/18 Gram Stain Result 1 (JENARO) - Final, Resulted 06/12/18 Gram Stain Result 2 (JENARO) - Final, Resulted 06/12/18 Gram Stain Result 3 (JENARO) - Final, Resulted Objective Assessment Diabetic ulcer right foot with cellulitis, s/p I and D, excisional, skin and subcutaneous tissue by Dr. North, 06/12, intra-op cultures pending s/p Leg bypass and open toe amputation PAD Leukocytosis - post op and s/p Dexameth Diabetes with peripheral neuropathy Renal insufficiency - better Tobacco dependency HLD HTN COPD Plan Plan of Care Continue Zosyn, Dapto Awaiting intra-op culture results am labs today Local wound care Supportive care d/w vascular surgery ADRIANO HERNANDEZ MD Jun 16, 2018 09:30
--- NOTE | 2018-06-16 10:20 | PDOC ---
Provider Note Provider Note Vascular S: Patient seen and examined in room, denies any complaints of pain. O: Awake and alert VSS, afebrile Right foot warm, wound vac in place and functioning, Doppler biphasic DP and PT , PT a bit weaker signal Prevena vac in place right groin, dressings dry and intact medial thigh and calf , moderate swelling. Cr. 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 Cr. 1.7 continue to monitor. Awaiting off-loading shoe. PT/OT may heel touch until shoe available SS for d/c planning will need abx and wound vac therapy. CHALINO DE ANDA APRN Jun 16, 2018 10:20
[2018-06-16 11:00] VITALS: BP 115/50
[2018-06-16] MEDS: oxyCODONE/APAP 5/325 1 TAB TABLET PO PRN (11:43)
[2018-06-16] MEDS: MEROPENEM 500 MG in IV NORMAL SALINE 50ML 50 ML IV SCH ×2 (12:23→20:40)
[2018-06-16 15:00] VITALS: BP 104/46
--- NOTE | 2018-06-16 15:04 | NUR ---
SS following up with discharge planning. SS met with pt and rediscussed [facility] and discharge planning. Pt agreeable to referral to [facility] due to proximity to his home. SS phoned and faxed referral to [facility], ; fax [phone]. SS will await acceptance decision and will proceed accordingly with discharge planning.
[2018-06-16] MEDS: DAPTOmycin (GENERIC) IVPB 500 MG in IV NORMAL SALINE 50ML 50 ML IV SCH (16:37)
--- NOTE | 2018-06-16 19:04 | PN ---
DATE: 06/16/2018 He is in room 203. SUBJECTIVE: The patient is awake, alert. Denies any major complaints. Vital signs are stable. He is afebrile. CHEST: Reveals slightly decreased breath sounds, but clear. HEART: Regular. ABDOMEN: Benign. EXTREMITIES: Right lower extremity is dressed with a wound VAC and has a nice warm foot with a palpable pulse. Hemoglobin is 12.5 this morning. Creatinine has bumped up to 1.7. It is noted in yesterday's notes, he has no history of chronic kidney disease and this will need to be followed. Final cultures are not available on the foot, although there are organisms growing out. IMPRESSION: 1. Diabetic foot infection with peripheral arterial disease. 2. Acute kidney injury. 3. Diabetes. 4. Peripheral arterial disease with bypass of the right leg and amputation of the great toe yesterday. PLAN: Continue present care, mobilize per Vascular Surgery, antibiotics to continue, pending cultures and patient will continue to be monitored, managed and treated appropriately. MERLYN CORDOBA MD DR: NATALIA/iván JOB#: [id number] / [id number]
[2018-06-16 19:13] VITALS: BP 123/60
[2018-06-16] MEDS: ATORVASTATIN CALCIUM 40 MG TABLET. PO SCH (20:39)
[2018-06-16 22:55] VITALS: BP 122/57
[2018-06-17 02:24] VITALS: BP 156/67
[2018-06-17 03:52] LABS: BASO % 1 % (0-3); EOS # 0.3 x10^3/uL (0.0-0.7); EOS % 4 % (0-3); HEMATOCRIT 38.6 % (39.0-53.0); HEMOGLOBIN 12.7 g/dL (13.0-17.5); LYMPH # 1.2 x10^3/uL (1.0-4.8); LYMPH % 14 % (24-48); MEAN CORPUSCULAR HEMOGLOBIN 30 pg (25-35); MEAN CORPUSCULAR HGB CONC 33 g/dL (31-37); MEAN CORPUSCULAR VOLUME 92 fL (79-100); MONO # 0.7 x10^3/uL (0.0-1.1); MONO % 8 % (0-9); NEUT # 6.7 x10^3uL (1.8-7.7); NEUT % 75 % (31-73); PLATELET COUNT 311 x10^3/uL (140-400); RED BLOOD COUNT 4.22 x10^6/uL (4.30-5.70); RED CELL DISTRIBUTION WIDTH 14.4 % (11.5-14.5); WHITE BLOOD COUNT 8.9 x10^3/uL (4.0-11.0)
[2018-06-17 04:26] LABS: CALCIUM 8.5 mg/dL (8.5-10.1); CREATININE 2.3 mg/dL (0.7-1.3); GFR 27.6; POTASSIUM 3.3 mmol/L (3.5-5.1)
[2018-06-17] MEDS: MEROPENEM 500 MG in IV NORMAL SALINE 50ML 50 ML IV SCH ×3 (06:00→20:49)
[2018-06-17 06:44] VITALS: BP 147/65
[2018-06-17] MEDS ORDERED: POTASSIUM CHLORIDE 20 MEQ TABLET.ER. PO ONE (07:15)
[2018-06-17] MEDS: CELECOXIB 100 MG CAPSULE. PO SCH (08:12)
[2018-06-17] MEDS: FUROSEMIDE 40 MG TABLET. PO SCH (08:12)
[2018-06-17] MEDS: MULTIVITAMIN with MINERAL TABLET. PO SCH (08:13)
[2018-06-17] MEDS: hydroCHLOROthiazide 12.5 MG CAPSULE PO SCH (08:13)
[2018-06-17] MEDS: metFORMIN 500 MG TABLET PO SCH ×2 (08:13→15:51)
[2018-06-17] MEDS: GLIMEPIRIDE 2 MG TABLET. PO SCH (08:13)
[2018-06-17] MEDS: LACTOBACILLUS RHAMNOSUS GG 1 CAPSULE. PO SCH ×2 (08:13→20:48)
[2018-06-17] MEDS: ASPIRIN 325 MG TABLET PO SCH (08:13)
[2018-06-17] MEDS: LOSARTAN POTASSIUM 50 MG TABLET. PO SCH (08:13)
[2018-06-17] MEDS: ELECTROLYTE (NON-ICU) PROTOCOL MC SCH (08:15)
--- NOTE | 2018-06-17 08:26 | PDOC ---
Infectious Disease Note Subjective Subjective feeling good ROS ROS no n/v/d/sob Vital Sign Vital Signs Vital Signs Date Time Temp Pulse Resp B/P (MAP) Pulse Ox O2 Delivery O2 Flow Rate FiO2 06/17/18 08:13 70 147/65 06/17/18 07:37 Room Air 06/17/18 06:44 98.2 20 95 98.2 06/16/18 08:00 2.0 Physical Exam PHYSICAL EXAM GENERAL: Propped up in bed, alert, eating HEENT: Normal conjunctivae. Oral cavity: Pharynx pink and moist. LUNGS: Clear to auscultation. HEART: S1, S2. ABDOMEN: Nondistended, soft and nontender with bowel sounds present. EXTREMITIES: Unremarkable except right foot with trace edema and mild redness extending to mid ankle. Wound vac in place,,, wound seen, bone exposed, necrotic tissue SKIN: Warm without rash. NEUROLOGIC: Alert, responds appropriately. PIV Labs Lab Laboratory Tests Test 06/16/18 12:33 06/16/18 17:32 06/16/18 20:38 06/17/18 03:00 Glucose (Fingerstick) 163 mg/dL (70-99) 173 mg/dL (70-99) 191 mg/dL (70-99) White Blood Count 8.9 x10^3/uL (4.0-11.0) Red Blood Count 4.22 x10^6/uL (4.30-5.70) Hemoglobin 12.7 g/dL (13.0-17.5) Hematocrit 38.6 % (39.0-53.0) Mean Corpuscular Volume 92 fL (79-100) Mean Corpuscular Hemoglobin 30 pg (25-35) Mean Corpuscular Hemoglobin Concent 33 g/dL (31-37) Red Cell Distribution Width 14.4 % (11.5-14.5) Platelet Count 311 x10^3/uL (140-400) Neutrophils (%) (Auto) 75 % (31-73) Lymphocytes (%) (Auto) 14 % (24-48) Monocytes (%) (Auto) 8 % (0-9) Eosinophils (%) (Auto) 4 % (0-3) Basophils (%) (Auto) 1 % (0-3) Neutrophils # (Auto) 6.7 x10^3uL (1.8-7.7) Lymphocytes # (Auto) 1.2 x10^3/uL (1.0-4.8) Monocytes # (Auto) 0.7 x10^3/uL (0.0-1.1) Eosinophils # (Auto) 0.3 x10^3/uL (0.0-0.7) Basophils # (Auto) 0.0 x10^3/uL (0.0-0.2) Sodium Level 142 mmol/L (136-145) Potassium Level 3.3 mmol/L (3.5-5.1) Chloride Level 104 mmol/L (98-107) Carbon Dioxide Level 25 mmol/L (21-32) Anion Gap 13 (6-14) Blood Urea Nitrogen 40 mg/dL (8-26) Creatinine 2.3 mg/dL (0.7-1.3) Estimated GFR (Cockcroft-Gault) 27.6 Glucose Level 115 mg/dL (70-99) Calcium Level 8.5 mg/dL (8.5-10.1) Test 06/17/18 06:56 Glucose (Fingerstick) 102 mg/dL (70-99) Micro ANAEROBIC-AEROBIC CULTURE Preliminary Preliminary report ANAEROBIC RES 1 Preliminary Comment Holding for possible anaerobes. AEROBIC CULT Preliminary Preliminary report AEROBIC RES 1 Preliminary Enterobacter cloacae 4+ AEROBIC RES 2 Preliminary Gram negative rods 4+ AEROBIC RES 3 Preliminary Mixed skin berry 2+ ANTIMICROBIAL SUSCEPTIBILITY Preliminary Comment S = Susceptible; I = Intermediate; R = Resistant P = Positive; N = Negative MICS are expressed in micrograms per mL Antibiotic RSLT#1 RSLT#2 RSLT#3 RSLT#4 Amoxicillin/Clavulanic Acid R>=32 Cefazolin R>=64 Cefepime S<=0.12 Cefuroxime R =R CONTINUED ON NEXT PAGE RUN DATE: 06/16/18 PAGE 2 RUN TIME: 1530 [facility] [address] [place] [address] Wilfredo Cotto M.D., Lay Out Machine Operator SPEC: [id number] PATIENT: EVONNE DRUMMOND [id number] ( Continued) Procedure Result ANTIMICROBIAL SUSCEPTIBILITY Preliminary (continued) Ciprofloxacin S<=0.25 Ertapenem S<=0.12 Gentamicin S<=1 Imipenem S<=0.25 Levofloxacin S<=0.12 Meropenem S<=0.25 Tetracycline S =2 Tobramycin S<=1 Trimethoprim/Sulfa S<=20 GRAM STAIN Final Final report GRAM STAIN RES 1 Final Comment No white blood cells seen. GRAM STAIN RES 2 Final Gram positive cocci Rare seen GRAM STAIN RES 3 Final Comment Rare gram negative rods. Performed at: - [facility] [address], [place], [place] [id number] [employer] Screw Machine Operator: RANDY Aragon MD, Phone: [phone] Objective Assessment Diabetic ulcer right foot with cellulitis, s/p I and D, excisional, skin and subcutaneous tissue by Dr. North, 06/12, intra-op cultures pending s/p Leg bypass and open toe amputation PAD Leukocytosis - post op and s/p Dexameth Diabetes with peripheral neuropathy Renal insufficiency - better Tobacco dependency HLD HTN COPD IFTIKHAR Plan Plan of Care Continue meropenem Awaiting intra-op culture results, eveline arreaga am labs today Local wound care Supportive care d/w vascular surgery, may need further debridement ADRIANO HERNANDEZ MD Jun 17, 2018 08:26
[2018-06-17 10:41] VITALS: BP 136/62
--- NOTE | 2018-06-17 11:13 | NUR ---
SS following up with discharge planning. Pt accepted at [facility] for detention unit. Pt's RN reported that Vascular may do debridement on Wednesday so pt most likely will stay through the weekend.
--- NOTE | 2018-06-17 13:36 | PDOC ---
Provider Note Provider Note Vascular S: Patient seen and examined in room, denies any complaints of pain. O: Awake and alert VSS, afebrile Right foot warm, wound vac removed, necrotic tissue noted along the plantar surface of wound, Moderate swelling, calf and foot hyperemic. 2nd toe appears viable with no exposed bone. Doppler biphasic DP and PT, Doppler bypass graft. Prevena vac in place right groin, dressings removed and thigh and calf incisions are dry and intact Cr. 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 Cr. 2.3 continue to monitor, will consult nephrology. Continue antibiotics per infectious disease. May ambulate with front off-loading shoe. PT/OT Discussed history and examination with Dr. An, he has seen and examined patient. Recommend patient be taken to operating room for additional foot debridement and possible second toe amputation. This is tentatively planned for Wednesday06/20/2018. CHALINO DE ANDA APRN Jun 17, 2018 13:36
--- NOTE | 2018-06-17 15:06 | PATHOLOGY ---
[facility] Accession Number: [id number] . 01 Material submitted: . RIGHT GREAT TOE, 1ST METATARSAL HEAD . 01 Clinical history: . Gangrene . 02 Diagnosis: Toe and separate segment of bone with focal attached soft tissue, right great toe amputation and first metatarsal head resection: - Focal gangrenous necrosis of toe with acute cellulitis and focal acute osteomyelitis. - Focal subarticular acute osteomyelitis and acute cellulitis of adjacent attached soft tissue of separate segment of metatarsal head. - Proximal amputation margin of metatarsal head negative for acute osteomyelitis or acute cellulitis. (JPM/db; 06/17/2018) LBQ/06/17/2018 . 02 Electronically signed: . Wilfredo Cotto MD, Pathologist NPI- [id number] . 01 Gross description: . The specimen is received in formalin, labeled "Joseph Ochoa, right great toe, first metatarsal head". Received is an amputated digit measuring 7.6 x 3.0 x 3.0 cm in greatest dimensions. The bone margin is smooth and concave in appearance, consistent with disarticulation. The bone and soft tissue margins are inked black. The nail is present displaying a light mcclellan, flaky and thickened appearance. On the plantar aspect of the specimen, there is a poorly circumscribed, partially flaky to gangrenous-appearing lesion measuring 2.5 x 1.7 cm in maximum dimensions, which grossly abuts the inked margin. Also received within the specimen container is a segment of bone displaying one smooth margin consistent with transection, and one smooth convex margin consistent with disarticulation, measuring 3.1 x 2.9 x 2.3 cm in greatest dimensions. The transected margin is inked black. The specimen is submitted representatively as follows: . A1-A3 full-thickness longitudinal cross-section through toe submitted from proximal to distal aspects, following decalcification, with the lesion submitted in cassette A2 A4-A5 full-thickness cross-section of separately submitted metatarsal head, submitted from proximal to distal aspects, following decalcification. (CAA; 06/16/2018) QAC/QAC . 02 Pathologist provided ICD-10: L03.031, M86.071 . 02 CPT . 031849, 016178 Specimen Comment: A courtesy copy of this report has been sent to Specimen Comment: [phone], . Specimen Comment: Report sent to / DR CORDOBA Specimen Comment: A duplicate report has been generated due to demographic updates. Performed at: 01 [facility] [address] [id number] MD Brown Madrid MD Phone: [phone] Performed at: 02 [facility] [address] [place], [place] [id number] MD Wilfredo Cotto MD Phone: [phone]
--- NOTE | 2018-06-17 15:10 | NUR ---
Wound care: Patient seen per wound care vac dressing change to right great toe amputation site. Dressing removed and wound cleansed, assessed, measured, and photographed. Orders for veraflo wound vac. skin prepped and an ostomy ring placed to turner-wound. One piece of waffle and one piece of lezama foam used. 16mL instilled every 3.5 hours for a dwell time of 10 minutes at 125mmHg. Patient has Darco shoe for offloading. Patient has prevena to right groin hooked to separate vac. Dressing clean and dry and intact. orders to remain the full 7 days as most prevenas. No other wounds noted upon complete head to toe assessment. Coccyx is reddened but remains blanchable and Calazime applied. Patient in chair at this time. Call light in reach.
[2018-06-17 19:45] VITALS: BP 129/60
[2018-06-17] MEDS: ATORVASTATIN CALCIUM 40 MG TABLET. PO SCH (20:48)
[2018-06-17 23:27] VITALS: BP 167/74
[2018-06-18 03:41] VITALS: BP 182/80
--- NOTE | 2018-06-18 03:56 | PN ---
DATE: 06/17/2018 LOCATION: He is in room #203. SUBJECTIVE: The patient is awake, alert. Denies any specific complaints other than getting stir-crazy from being in the hospital so long and somewhat depressed. OBJECTIVE: VITAL SIGNS: Stable. He is afebrile. GENERAL: He is unshaven. CHEST: Clear. HEART: Regular. ABDOMEN: Benign. EXTREMITIES: Right foot warm with good Doppler pulses. LABORATORY DATA: Creatinine is increased this morning to 2.3. ASSESSMENT: 1. Peripheral arterial disease with right lower extremity gangrene and amputation of the great toe and bypass surgery. 2. Diabetes. 3. Acute renal worsening. PLAN: Renal evaluation. Otherwise, help of all consultants appreciated. Continue the same. MERLYN CORDOBA MD DR: NATALIA/iván JOB#: [id number] / [id number]
[2018-06-18] MEDS: MEROPENEM 500 MG in IV NORMAL SALINE 50ML 50 ML IV SCH ×3 (06:05→20:50)
[2018-06-18 07:00] VITALS: BP 141/66
[2018-06-18] MEDS: GLIMEPIRIDE 2 MG TABLET. PO SCH (08:15)
[2018-06-18] MEDS: MULTIVITAMIN with MINERAL TABLET. PO SCH (08:16)
[2018-06-18] MEDS: FUROSEMIDE 40 MG TABLET. PO SCH (08:16)
[2018-06-18] MEDS: hydroCHLOROthiazide 12.5 MG CAPSULE PO SCH (08:16)
[2018-06-18] MEDS: CELECOXIB 100 MG CAPSULE. PO SCH (08:16)
[2018-06-18] MEDS: metFORMIN 500 MG TABLET PO SCH (08:16)
[2018-06-18] MEDS: ASPIRIN 325 MG TABLET PO SCH (08:16)
[2018-06-18] MEDS: LACTOBACILLUS RHAMNOSUS GG 1 CAPSULE. PO SCH ×2 (08:16→20:47)
[2018-06-18] MEDS: LOSARTAN POTASSIUM 50 MG TABLET. PO SCH (08:17)
[2018-06-18] MEDS: ELECTROLYTE (NON-ICU) PROTOCOL MC SCH (09:00)
--- NOTE | 2018-06-18 09:18 | NUR ---
PATIENT COMPLAINING OF BLURRY VISION THAT STARTED THIS MORNING. PATIENTS EYES EQUAL AND REACTIVE TO LIGHT. PATIENT ABLE TO FOLLOW MY FINGER WITH EYES. PATIENTS STRENGTH IS EQUAL BILATERALLY. FACE APPEARS SYMMETRICAL. DR BERYL NGUYEN. NO FURTHER ORDERS AT THIS TIME. WILL CONTINUE TO MONITOR PATIENT.
--- NOTE | 2018-06-18 09:42 | PDOC ---
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 Cr has increased some to 2.3 --> surgery plus some contrast nephropathy likely. Renal to see -- avoid nephrotoxins and keep volume appropriate Objective Objective Vital Signs Date Time Temp Pulse Resp B/P (MAP) Pulse Ox O2 Delivery O2 Flow Rate FiO2 06/18/18 08:17 70 182/80 06/18/18 07:30 Room Air 06/18/18 07:00 98.3 18 98.3 06/18/18 03:41 96 06/16/18 08:00 2.0 Intake and Output 06/18/18 07:00 Intake Total 850 ml Output Total 300 ml Balance 550 ml Intake Oral 850 ml Output Urine Total 300 ml # Voids 1 # Bowel Movements 1 Physical Exam Physical Exam wounds look good, strong signal and graft pulse Comment Review of Relevant I have reviewed the following items evans (where applicable) has been applied. Labs Laboratory Tests Test 06/16/18 12:33 06/16/18 17:32 06/16/18 20:38 06/17/18 03:00 Glucose (Fingerstick) 163 mg/dL (70-99) 173 mg/dL (70-99) 191 mg/dL (70-99) White Blood Count 8.9 x10^3/uL (4.0-11.0) Red Blood Count 4.22 x10^6/uL (4.30-5.70) Hemoglobin 12.7 g/dL (13.0-17.5) Hematocrit 38.6 % (39.0-53.0) Mean Corpuscular Volume 92 fL (79-100) Mean Corpuscular Hemoglobin 30 pg (25-35) Mean Corpuscular Hemoglobin Concent 33 g/dL (31-37) Red Cell Distribution Width 14.4 % (11.5-14.5) Platelet Count 311 x10^3/uL (140-400) Neutrophils (%) (Auto) 75 % (31-73) Lymphocytes (%) (Auto) 14 % (24-48) Monocytes (%) (Auto) 8 % (0-9) Eosinophils (%) (Auto) 4 % (0-3) Basophils (%) (Auto) 1 % (0-3) Neutrophils # (Auto) 6.7 x10^3uL (1.8-7.7) Lymphocytes # (Auto) 1.2 x10^3/uL (1.0-4.8) Monocytes # (Auto) 0.7 x10^3/uL (0.0-1.1) Eosinophils # (Auto) 0.3 x10^3/uL (0.0-0.7) Basophils # (Auto) 0.0 x10^3/uL (0.0-0.2) Sodium Level 142 mmol/L (136-145) Potassium Level 3.3 mmol/L (3.5-5.1) Chloride Level 104 mmol/L (98-107) Carbon Dioxide Level 25 mmol/L (21-32) Anion Gap 13 (6-14) Blood Urea Nitrogen 40 mg/dL (8-26) Creatinine 2.3 mg/dL (0.7-1.3) Estimated GFR (Cockcroft-Gault) 27.6 Glucose Level 115 mg/dL (70-99) Calcium Level 8.5 mg/dL (8.5-10.1) Test 06/17/18 06:56 06/17/18 17:12 06/17/18 20:47 Glucose (Fingerstick) 102 mg/dL (70-99) 169 mg/dL (70-99) 172 mg/dL (70-99) Laboratory Tests Test 06/17/18 17:12 06/17/18 20:47 Glucose (Fingerstick) 169 mg/dL (70-99) 172 mg/dL (70-99) Microbiology 06/10/18 Urine Culture - Final, Complete 06/10/18 Urine Culture Result 1 (JENARO) - Final, Complete 06/15/18 Anaerobic/Aerobic Culture, Resulted Pending 06/15/18 Anaerobic Culture Result 1 (JENARO), Resulted Pending 06/15/18 Aerobic Culture - Preliminary, Resulted 06/15/18 Aerobic Culture Result 1 (JENARO) - Preliminary, Resulted 06/15/18 Gram Stain - Final, Resulted 06/15/18 Gram Stain Result 1 (JENARO) - Final, Resulted 06/15/18 Gram Stain Result 2 (JENARO) - Final, Resulted Medications Current Medications Aspirin (Kaley Aspirin) 325 mg DAILY PO Last administered on 06/18/18 08:16; Start 06/11/18 at 09:00 Atorvastatin Calcium (Lipitor) 40 mg HS PO Last administered on 06/17/18at 20:48 ; Start 06/10/18 at 21:00 Furosemide (Lasix) 40 mg DAILY PO Last administered on 06/18/18 08:16; Start 06/11/18 at 09:00 Celecoxib (CeleBREX) 200 mg DAILY PO Last administered on 06/18/18at 08:16; Start 06/11/18 at 09:00 Non-Formulary Medication (Empagliflozin (Jardiance)) 25 mg DAILY PO ; Start 06/11 at 09:00; Stop 06/13/18 at 07:26; Status DC Glimepiride (Amaryl) 4 mg DAILY PO Last administered on 06/18/18 08:15; Start 06/11/18 at 09:00 Metformin HCl (Glucophage) 500 mg BIDWMEALS PO Last administered on 06/18/18 08:16; Start 06/10/18 at 17:30 Non-Formulary Medication (Valsartan/ Hydrochlorothiazide (Diovan Hct 160-12.5 Mg Tab)) 1 each DAILY PO ; Start 06/11/18 at 09:00; Status UNV Piperacillin Sod/ Tazobactam Sod 3.375 gm/Sodium Chloride 50 ml @ 100 mls/hr Q6HRS IV Last administered on 06/16/18at 05:27; Start 06/10/18 at 17:30; Stop at 11:20; Status DC Vancomycin HCl (Vanco Per Pharmacy) 1 each PRN DAILY PRN MC SEE COMMENTS Last administered on 06/12/18at 10:52; Start 06/10/18 at 16:45; Stop 06/12/18 at 13:51 ; Status DC Vancomycin HCl 2 gm/Sodium Chloride 500 ml @ 250 mls/hr 1X ONCE IV Last administered on 06/10/18at 18:12; Start 06/10/18 at 17:30; Stop 06/10/18 at 19:29; Status DC Losartan Potassium (Cozaar) 100 mg DAILY PO Last administered on 06/18/18at 08: 17; Start 06/11/18 at 09:00 Hydrochlorothiazide (Microzide) 12.5 mg DAILY PO Last administered on at 08:16; Start 06/11/18 at 09:00 Nicotine (Nicoderm Cq 21mg) 1 patch PRN DAILY PRN TD SMOKING CESSATION; Start 06/10/18 at 18:45 Vancomycin HCl 1.5 gm/Sodium Chloride 500 ml @ 250 mls/hr Q24H IV Last administered on 06/11/18at 18:03; Start 06/11/18 at 18:00; Stop 06/12/18 at 13:51; Status DC Vancomycin HCl (Vancomycin Trough Level) 1 each 1X ONCE MC ; Start 06/12/18 at 17:30; Stop 06/12/18 at 17:31; Status Cancel Ondansetron HCl (Zofran) 4 mg PRN Q6HRS PRN IV NAUSEA/VOMITING; Start 06/12/18 at 07:00; Stop 06/12/18 at 11:49; Status DC Fentanyl Citrate (Fentanyl 2ml Vial) 25 mcg PRN Q5MIN PRN IV MILD PAIN; Start 06/12/18 at 07:00; Stop 06/12/18 at 11:49; Status DC Fentanyl Citrate (Fentanyl 2ml Vial) 50 mcg PRN Q5MIN PRN IV MODERATE TO SEVERE PAIN; Start 06/12/18 at 07:00; Stop 06/12/18 at 11:49; Status DC Morphine Sulfate (Morphine Sulfate) 1 mg PRN Q10MIN PRN IV SEVERE PAIN; Start 06/12/18 at 07:00; Stop 06/12/18 at 11:49; Status DC Ringer's Solution 1,000 ml @ 30 mls/hr Q24H IV ; Start 06/12/18 at 07:00; Stop 06/12/18 at 11:49; Status DC Lidocaine HCl (Xylocaine-Mpf 1% 2ml Vial) 2 ml PRN 1X PRN ID PRIOR TO IV START ; Start 06/12/18 at 07:00; Stop 06/12/18 at 11:49; Status DC Hydromorphone HCl (Dilaudid) 0.5 mg PRN Q10MIN PRN IV SEV PAIN, Second choice; Start 06/12/18 at 07:00; Stop 06/12/18 at 11:49; Status DC Prochlorperazine Edisylate (Compazine) 5 mg PACU PRN PRN IV NAUSEA, MRX1; Start 06/12/18 at 07:00; Stop 06/12/18 at 11:49; Status DC Lactobacillus Rhamnosus (Culturelle) 1 cap BID PO Last administered on at 08:16; Start 06/12/18 at 21:00 Propofol 20 ml @ As Directed STK-MED ONCE IV ; Start 06/12/18 at 07:48; Stop 01/21 at 07:49; Status DC Lidocaine HCl (Lidocaine Pf 2% Vial) 5 ml STK-MED ONCE .ROUTE ; Start 06/12/18 at 07:48; Stop 06/12/18 at 07:49; Status DC Fentanyl Citrate (Fentanyl 2ml Vial) 100 mcg STK-MED ONCE .ROUTE ; Start at 08:11; Stop 06/12/18 at 08:13; Status DC Dexamethasone Sodium Phosphate (Decadron) 20 mg STK-MED ONCE .ROUTE ; Start 01/21 at 08:20; Stop 06/12/18 at 08:21; Status DC Ondansetron HCl (Zofran) 4 mg STK-MED ONCE .ROUTE ; Start 06/12/18 at 08:20; Stop 06/12/18 at 08:21; Status DC Sevoflurane (Ultane) 15 ml STK-MED ONCE IH ; Start 06/12/18 at 08:20; Stop 06/12 at 08:21; Status DC Daptomycin 540 mg/ Sodium Chloride 50 ml @ 100 mls/hr Q24H IV ; Start 06/12/18 at 14:00; Stop 06/12/18 at 14:00; Status DC Daptomycin 500 mg/ Sodium Chloride 50 ml @ 100 mls/hr Q24H IV Last administered on 06/16/18at 16:37; Start 06/12/18 at 16:00; Stop 06/17/18 at 08:26 ; Status DC Insulin Human Lispro (HumaLOG) 5 units 1X ONCE SQ Last administered on at 23:19; Start 06/12/18 at 21:30; Stop 06/12/18 at 22:32; Status DC Multivitamins (Thera M Plus) 1 tab DAILY PO Last administered on 06/18/18at 08: 16; Start 06/13/18 at 10:00 Sodium Chloride 1,000 ml @ 125 mls/hr 1X ONCE IV Last administered on at 16:19; Start 06/13/18 at 15:00; Stop 06/13/18 at 22:59; Status DC Sodium Chloride 250 ml @ 250 mls/hr 1X ONCE IV Last administered on at 16:19; Start 06/13/18 at 15:00; Stop 06/13/18 at 15:59; Status DC Iodixanol (Visipaque 320) 100 ml STK-MED ONCE .ROUTE ; Start 06/14/18 at 13:01; Stop 06/14/18 at 13:02; Status DC Lidocaine HCl (Lidocaine 1% 20ml Vial) 20 ml STK-MED ONCE .ROUTE ; Start at 13:01; Stop 06/14/18 at 13:02; Status DC Heparin Sodium/ Sodium Chloride 1,500 ml @ As Directed STK-MED ONCE .ROUTE ; Start 06/14/18 at 13:01; Stop 06/14/18 at 13:02; Status DC Midazolam HCl (Versed) 5 mg STK-MED ONCE .ROUTE ; Start 06/14/18 at 14:10; Stop 06/14/18 at 14:13; Status DC Fentanyl Citrate (Fentanyl 2ml Vial) 100 mcg STK-MED ONCE .ROUTE ; Start at 14:11; Stop 06/14/18 at 14:13; Status DC Heparin Sodium (Porcine) (Heparin Sodium) 10,000 unit STK-MED ONCE .ROUTE ; Start 06/14/18 at 14:11; Stop 06/14/18 at 14:13; Status DC Heparin Sodium/ Sodium Chloride (HEPARIN for ARTERIAL LINE FLUSH) 1,000 unit 1X ONCE IART Last administered on 06/14/18at 14:48; Start 06/14/18 at 14:15; Stop 06/14/18 at 14:27; Status DC Heparin Sodium/ Sodium Chloride (HEPARIN for ARTERIAL LINE FLUSH) 1,000 unit 1X ONCE IART Last administered on 06/14/18at 14:51; Start 06/14/18 at 14:15; Stop 06/14/18 at 14:27; Status DC Midazolam HCl (Versed) 5 mg 1X ONCE IV Last administered on 06/14/18at 14:53; Start 06/14/18 at 14:15; Stop 06/14/18 at 14:27; Status DC Fentanyl Citrate (Fentanyl 2ml Vial) 100 mcg 1X ONCE IV Last administered on at 14:53; Start 06/14/18 at 14:15; Stop 06/14/18 at 14:27; Status DC Iodixanol (Visipaque 320) 100 ml 1X ONCE IART Last administered on 06/14/18at 14:52; Start 06/14/18 at 14:15; Stop 06/14/18 at 14:27; Status DC Lidocaine HCl 20 ml 1X ONCE IJ ; Start 06/14/18 at 14:15; Stop 06/14/18 at 14: 16; Status Cancel Info (CONTRAST GIVEN -- Rx MONITORING) 1 each PRN DAILY PRN MC SEE COMMENTS; Start 06/14/18 at 14:30; Stop 06/16/18 at 14:29; Status DC Lidocaine HCl (Lidocaine 1% 20ml Vial) 20 ml 1X ONCE INJ Last administered on 06/14/18at 14:54; Start 06/14/18 at 15:00; Stop 06/14/18 at 15:01; Status DC Potassium Chloride (Klor-Con) 40 meq 1X ONCE PO Last administered on at 17:18; Start 06/14/18 at 14:45; Stop 06/14/18 at 14:53; Status DC Ondansetron HCl (Zofran) 4 mg PRN Q6HRS PRN IV NAUSEA/VOMITING; Start 06/15/18 at 07:00; Stop 06/16/18 at 06:59; Status DC Fentanyl Citrate (Fentanyl 2ml Vial) 25 mcg PRN Q5MIN PRN IV MILD PAIN; Start 06/15/18 at 07:00; Stop 06/16/18 at 06:59; Status DC Fentanyl Citrate (Fentanyl 2ml Vial) 50 mcg PRN Q5MIN PRN IV MODERATE TO SEVERE PAIN; Start 06/15/18 at 07:00; Stop 06/16/18 at 06:59; Status DC Morphine Sulfate (Morphine Sulfate) 1 mg PRN Q10MIN PRN IV SEVERE PAIN; Start 06/15/18 at 07:00; Stop 06/16/18 at 06:59; Status DC Ringer's Solution 1,000 ml @ 30 mls/hr Q24H IV ; Start 06/15/18 at 07:00; Stop 06/15/18 at 15:55; Status DC Hydromorphone HCl (Dilaudid) 0.5 mg PRN Q10MIN PRN IV SEV PAIN, Second choice; Start 06/15/18 at 07:00; Stop 06/16/18 at 06:59; Status DC Prochlorperazine Edisylate (Compazine) 5 mg PACU PRN PRN IV NAUSEA, MRX1; Start 06/15/18 at 07:00; Stop 06/16/18 at 06:59; Status DC Sodium Chloride 1,000 ml @ 100 mls/hr Q10H IV Last administered on 06/16/18at 03:03; Start 06/14/18 at 16:15; Stop 06/16/18 at 07:39; Status DC Cefazolin Sodium 1 gm/Sodium Chloride 500 ml @ 500 mls/hr ONCE ONCE IRR Last administered on 06/15/18at 08:08; Start 06/15/18 at 06:00; Stop 06/15/18 at 06:59 ; Status DC Heparin Sodium (Porcine) 5000 unit/Sodium Chloride 505 ml @ 505 mls/hr ONCE ONCE IRR Last administered on 06/15/18at 08:08; Start 06/15/18 at 06:00; Stop at 06:59; Status DC Iohexol (Omnipaque 300 Mg/ml) 100 ml STK-MED ONCE .ROUTE Last administered on at 08:08; Start 06/15/18 at 05:57; Stop 06/15/18 at 06:57; Status DC Cellulose (Surgicel Fibrillar 1x2) 1 each STK-MED ONCE .ROUTE Last administered on 06/15/18at 10:32; Start 06/15/18 at 05:57; Stop 06/15/18 at 06:57 ; Status DC Rocuronium [place] (Zemuron) 50 mg STK-MED ONCE .ROUTE ; Start 06/15/18 at 07:15 ; Stop 06/15/18 at 07:16; Status DC Fentanyl Citrate (Fentanyl 2ml Vial) 100 mcg STK-MED ONCE .ROUTE ; Start at 07:15; Stop 06/15/18 at 07:17; Status DC Sevoflurane (Ultane) 90 ml STK-MED ONCE IH ; Start 06/15/18 at 07:16; Stop 06/15 at 07:17; Status DC Phenylephrine HCl (Bobby-Synephrine Inj) 10 mg STK-MED ONCE .ROUTE ; Start at 07:16; Stop 06/15/18 at 07:17; Status DC Dexamethasone Sodium Phosphate (Decadron) 20 mg STK-MED ONCE .ROUTE ; Start at 07:16; Stop 06/15/18 at 07:17; Status DC Ondansetron HCl (Zofran) 4 mg STK-MED ONCE .ROUTE ; Start 06/15/18 at 07:16; Stop 06/15/18 at 07:17; Status DC Lidocaine HCl (Lidocaine Pf 2% Vial) 5 ml STK-MED ONCE .ROUTE ; Start 06/15/18 at 07:16; Stop 06/15/18 at 07:17; Status DC Propofol 20 ml @ As Directed STK-MED ONCE IV ; Start 06/15/18 at 07:16; Stop at 07:17; Status DC Bupivacaine HCl/ Epinephrine Bitart (Sensorcaine-Epi 0.25%-1:279614 Mpf) 30 ml STK-MED ONCE .ROUTE Last administered on 06/15/18at 08:08; Start 06/15/18 at 07: 06; Stop 06/15/18 at 08:07; Status DC Rocuronium [place] (Zemuron) 50 mg STK-MED ONCE .ROUTE ; Start 06/15/18 at 08:48 ; Stop 06/15/18 at 08:49; Status DC Protamine Sulfate (Protamine) 50 mg STK-MED ONCE IV ; Start 06/15/18 at 10:31; Stop 06/15/18 at 10:33; Status DC Neostigmine Methylsulfate (Bloxiverz) 10 mg STK-MED ONCE .ROUTE ; Start at 10:52; Stop 06/15/18 at 10:53; Status DC Glycopyrrolate (Robinul) 1 mg STK-MED ONCE .ROUTE ; Start 06/15/18 at 10:52; Stop 06/15/18 at 10:53; Status DC Morphine Sulfate (Morphine Sulfate) 10 mg STK-MED ONCE .ROUTE ; Start 06/15/18 at 11:00; Stop 06/15/18 at 11:01; Status DC Ondansetron HCl (Zofran) 4 mg PRN Q6HRS PRN IV NAUSEA/VOMITING; Start 06/15/18 at 11:15; Stop 06/15/18 at 20:00; Status DC Fentanyl Citrate (Fentanyl 2ml Vial) 25 mcg PRN Q5MIN PRN IV MILD PAIN; Start 06/15/18 at 11:15; Stop 06/15/18 at 20:00; Status DC Fentanyl Citrate (Fentanyl 2ml Vial) 50 mcg PRN Q5MIN PRN IV MODERATE TO SEVERE PAIN; Start 06/15/18 at 11:15; Stop 06/15/18 at 20:00; Status DC Morphine Sulfate (Morphine Sulfate) 1 mg PRN Q10MIN PRN IV SEVERE PAIN; Start 06/15/18 at 11:15; Stop 06/15/18 at 20:00; Status DC Ringer's Solution 1,000 ml @ 30 mls/hr Q24H IV ; Start 06/15/18 at 11:06; Stop 06/15/18 at 15:55; Status DC Lidocaine HCl (Xylocaine-Mpf 1% 2ml Vial) 2 ml PRN 1X PRN ID PRIOR TO IV START ; Start 06/15/18 at 11:15; Stop 06/15/18 at 20:00; Status DC Hydromorphone HCl (Dilaudid) 0.5 mg PRN Q10MIN PRN IV SEV PAIN, Second choice; Start 06/15/18 at 11:15; Stop 06/15/18 at 20:00; Status DC Prochlorperazine Edisylate (Compazine) 5 mg PACU PRN PRN IV NAUSEA, MRX1; Start 06/15/18 at 11:15; Stop 06/15/18 at 20:00; Status DC Lidocaine HCl (Lidocaine Pf 2% Vial) 5 ml STK-MED ONCE .ROUTE ; Start 06/15/18 at 11:10; Stop 06/15/18 at 11:11; Status DC Oxycodone HCl (Roxicodone) 5 mg PRN Q3HRS PRN PO BREAKTHROUGH PAIN; Start 06/15 at 12:15 Diphenhydramine HCl (Benadryl) 25 mg PRN Q6HRS PRN PO ITCHING; Start 06/15/18 at 12:15 Diphenhydramine HCl (Benadryl) 25 mg PRN Q6HRS PRN IV ITCHING; Start 06/15/18 at 12:15 Zolpidem Tartrate (Ambien) 5 mg PRN QHS PRN PO INSOMNIA; Start 06/15/18 at 12: 15 Info (Non-Icu Electrolyte Protocol) 1 ea DAILY MC Last administered on at 08:15; Start 06/16/18 at 09:00 Naloxone HCl (Narcan) 0.1 mg PRN Q2MIN PRN IV ADMIN; Start 06/15/18 at 12:15 Sodium Chloride (Normal Saline Flush) 3 ml QSHIFT PRN IV AFTER MEDS AND BLOOD DRAWS; Start 06/15/18 at 12:15 Sodium Chloride 1,000 ml @ 100 mls/hr Q10H IV ; Start 06/15/18 at 13:00; Status Cancel Oxycodone/ Acetaminophen (Percocet 5/325) 1 tab PRN Q4HRS PRN PO MILD PAIN, 1ST CHOICE Last administered on 06/16/18at 11:43; Start 06/15/18 at 12:15 Oxycodone/ Acetaminophen (Percocet 5/325) 2 tab PRN Q4HRS PRN PO MODERATE PAIN , SEVERE PAIN; Start 06/15/18 at 12:15 Morphine Sulfate (Morphine Sulfate) 2 mg PRN Q1HR PRN IV PAIN; Start 06/15/18 at 12:15 Docusate Sodium (Colace) 100 mg PRN BID PRN PO constipation; Start 06/15/18 at 12:15 Ondansetron HCl (Zofran) 4 mg PRN Q6HRS PRN IV NAUESA, 1ST CHOICE; Start at 12:15 Prochlorperazine Edisylate (Compazine) 5 mg PRN Q6HRS PRN IV N/V, 2nd Choice, MR X1; Start 06/15/18 at 12:15 Hydralazine HCl (Apresoline Inj) 5 mg PRN Q4HRS PRN IVP ELEVATED BP, SEE COMMENTS Last administered on 06/18/18at 04:00; Start 06/15/18 at 12:15 Labetalol HCl (Normodyne Iv Push) 10 mg PRN Q2HR PRN IVP HYPERTENSION, SEE COMMENTS; Start 06/15/18 at 12:15 Meropenem 500 mg/ Sodium Chloride 50 ml @ 100 mls/hr Q8HRS IV Last administered on 06/18/18at 06:05; Start 06/16/18 at 12:00 Potassium Chloride (Klor-Con) 40 meq 1X ONCE PO Last administered on at 08:13; Start 06/17/18 at 07:15; Stop 06/17/18 at 07:16; Status DC Ondansetron HCl (Zofran) 4 mg PRN Q6HRS PRN IV NAUSEA/VOMITING; Start 06/20/18 at 07:00; Stop 06/20/18 at 20:00 Fentanyl Citrate (Fentanyl 2ml Vial) 25 mcg PRN Q5MIN PRN IV MILD PAIN; Start 06/20/18 at 07:00; Stop 06/20/18 at 20:00 Fentanyl Citrate (Fentanyl 2ml Vial) 50 mcg PRN Q5MIN PRN IV MODERATE TO SEVERE PAIN; Start 06/20/18 at 07:00; Stop 06/20/18 at 20:00 Morphine Sulfate (Morphine Sulfate) 1 mg PRN Q10MIN PRN IV SEVERE PAIN; Start 06/20/18 at 07:00; Stop 06/20/18 at 20:00 Ringer's Solution 1,000 ml @ 30 mls/hr Q24H IV ; Start 06/20/18 at 07:00; Stop 06/20/18 at 18:59 Lidocaine HCl (Xylocaine-Mpf 1% 2ml Vial) 2 ml PRN 1X PRN ID PRIOR TO IV START ; Start 06/20/18 at 07:00; Stop 06/20/18 at 20:00 Hydromorphone HCl (Dilaudid) 0.5 mg PRN Q10MIN PRN IV SEV PAIN, Second choice; Start 06/20/18 at 07:00; Stop 06/20/18 at 20:00 Prochlorperazine Edisylate (Compazine) 5 mg PACU PRN PRN IV NAUSEA, MRX1; Start 06/20/18 at 07:00; Stop 06/20/18 at 20:00 Active Scripts Active Reported Aspirin 325 Mg Tablet 325 Mg PO DAILY Celebrex (Celecoxib) 200 Mg Capsule 200 Mg PO DAILY 30 Days Furosemide 40 Mg Tablet 40 Mg PO DAILY Diovan Hct 160-12.5 Mg Tab (Valsartan/Hydrochlorothiazide) 1 Each Tablet 1 Each PO DAILY Atorvastatin Calcium 40 Mg Tablet 40 Mg PO HS Jardiance (Empagliflozin) 25 Mg Tablet 25 Mg PO DAILY Glimepiride 4 Mg Tablet 4 Mg PO DAILY Metformin Hcl 500 Mg Tablet 500 Mg PO BIDWMEALS Vitals/I & O Vital Sign - Last 24 Hours 06/17/18 06/17/18 06/17/18 06/17/18 10:41 19:45 20:18 23:27 Temp 98.5 98.2 98.7 98.5 98.2 98.7 Pulse 74 76 67 Resp 20 20 20 B/P (MAP) 136/62 (86) 129/60 (83) 167/74 (105) Pulse Ox 96 97 95 O2 Delivery Room Air Room Air Room Air Room Air 06/18/18 06/18/18 06/18/18 06/18/18 03:41 04:00 07:00 07:30 Temp 98.4 98.3 98.4 98.3 Pulse 72 70 74 Resp 20 18 B/P (MAP) 182/80 (114) 182/80 141/66 (91) Pulse Ox 96 O2 Delivery Room Air Room Air Room Air 06/18/18 08:17 Pulse 70 B/P (MAP) 182/80 Intake and Output 06/17/18 06/17/18 06/18/18 15:00 23:00 07:00 Intake Total 240 ml 550 ml 60 ml Output Total 300 ml Balance 240 ml 550 ml -240 ml MULUGETA BURRIS MD Jun 18, 2018 09:42
[2018-06-18 11:00] VITALS: BP 128/55
--- NOTE | 2018-06-18 11:16 | PDOC2 ---
CONSULT Date of Consult Date of Consult DATE: 06/18/18 TIME: 11:08 Reason for Consult Reason for Consult: IFTIKHAR Referring Physician Referring Physician: APPL Identification/Chief Complaint Chief Complaint THIS IS A 77 YR OLD WITH CKD STAGE 3 WITH CR OF 1.4-2.0 AT BASELINE. NOW HAS CR OF 2.3 AND DECREASED UO. NOTED TO HAVE HAD LE BYPASS AND TOE AMPUTATION. HE DID HAVE AND ANGIOGRAM PRE OP AND HAS BEEN ON DIURETICS, MANUEL-2 INHIBITORS AND AND ARB. ALSO ON METFORMIN. HX OF CKD DUE TO DM II AND HTN. PT NOT AWARE OF ANY CKD BUT PREVIOUS LABS HERE ARE C/W WITH THIS. NO OTHER HX EXCEPT SOME FREQUENCY MOST LIKELY DUE TO AGE RELATED BPH. NO HX OF ANY KIDNEY OR BLADDER SURGERIES HEMATURIA OR DYSURIA Source Source: Chart review, Patient History of Present Illness Reason for Visit: ABOVE Past Medical History Cardiovascular: HTN, Hyperlipidemia, Other (PAD) Pulmonary: COPD Renal/: Chronic renal insuff Endocrine: Diabetes Family History Family History: Hypertension, Other Social History # pack years (195) Lives: with Family Current Medications Current Medications Current Medications Aspirin (Kaley Aspirin) 325 mg DAILY PO Last administered on 06/18/18at 08:16; Start 06/11/18 at 09:00 Atorvastatin Calcium (Lipitor) 40 mg HS PO Last administered on 06/17/18at 20:48 ; Start 06/10/18 at 21:00 Furosemide (Lasix) 40 mg DAILY PO Last administered on 06/18/18at 08:16; Start 06/11/18 at 09:00 Celecoxib (CeleBREX) 200 mg DAILY PO Last administered on 06/18/18at 08:16; Start 06/11/18 at 09:00 Non-Formulary Medication (Empagliflozin (Jardiance)) 25 mg DAILY PO ; Start 06/11 at 09:00; Stop 06/13/18 at 07:26; Status DC Glimepiride (Amaryl) 4 mg DAILY PO Last administered on 06/18/18at 08:15; Start 06/11/18 at 09:00 Metformin HCl (Glucophage) 500 mg BIDWMEALS PO Last administered on 06/18/18at 08:16; Start 06/10/18 at 17:30 Non-Formulary Medication (Valsartan/ Hydrochlorothiazide (Diovan Hct 160-12.5 Mg Tab)) 1 each DAILY PO ; Start 06/11/18 at 09:00; Status UNV Piperacillin Sod/ Tazobactam Sod 3.375 gm/Sodium Chloride 50 ml @ 100 mls/hr Q6HRS IV Last administered on 06/16/18at 05:27; Start 06/10/18 at 17:30; Stop at 11:20; Status DC Vancomycin HCl (Vanco Per Pharmacy) 1 each PRN DAILY PRN MC SEE COMMENTS Last administered on 06/12/18at 10:52; Start 06/10/18 at 16:45; Stop 06/12/18 at 13:51 ; Status DC Vancomycin HCl 2 gm/Sodium Chloride 500 ml @ 250 mls/hr 1X ONCE IV Last administered on 06/10/18at 18:12; Start 06/10/18 at 17:30; Stop 06/10/18 at 19:29; Status DC Losartan Potassium (Cozaar) 100 mg DAILY PO Last administered on 06/18/18at 08: 17; Start 06/11/18 at 09:00 Hydrochlorothiazide (Microzide) 12.5 mg DAILY PO Last administered on at 08:16; Start 06/11/18 at 09:00 Nicotine (Nicoderm Cq 21mg) 1 patch PRN DAILY PRN TD SMOKING CESSATION; Start 06/10/18 at 18:45 Vancomycin HCl 1.5 gm/Sodium Chloride 500 ml @ 250 mls/hr Q24H IV Last administered on 06/11/18at 18:03; Start 06/11/18 at 18:00; Stop 06/12/18 at 13:51; Status DC Vancomycin HCl (Vancomycin Trough Level) 1 each 1X ONCE MC ; Start 06/12/18 at 17:30; Stop 06/12/18 at 17:31; Status Cancel Ondansetron HCl (Zofran) 4 mg PRN Q6HRS PRN IV NAUSEA/VOMITING; Start 06/12/18 at 07:00; Stop 06/12/18 at 11:49; Status DC Fentanyl Citrate (Fentanyl 2ml Vial) 25 mcg PRN Q5MIN PRN IV MILD PAIN; Start 06/12/18 at 07:00; Stop 06/12/18 at 11:49; Status DC Fentanyl Citrate (Fentanyl 2ml Vial) 50 mcg PRN Q5MIN PRN IV MODERATE TO SEVERE PAIN; Start 06/12/18 at 07:00; Stop 06/12/18 at 11:49; Status DC Morphine Sulfate (Morphine Sulfate) 1 mg PRN Q10MIN PRN IV SEVERE PAIN; Start 06/12/18 at 07:00; Stop 06/12/18 at 11:49; Status DC Ringer's Solution 1,000 ml @ 30 mls/hr Q24H IV ; Start 06/12/18 at 07:00; Stop 06/12/18 at 11:49; Status DC Lidocaine HCl (Xylocaine-Mpf 1% 2ml Vial) 2 ml PRN 1X PRN ID PRIOR TO IV START ; Start 06/12/18 at 07:00; Stop 06/12/18 at 11:49; Status DC Hydromorphone HCl (Dilaudid) 0.5 mg PRN Q10MIN PRN IV SEV PAIN, Second choice; Start 06/12/18 at 07:00; Stop 06/12/18 at 11:49; Status DC Prochlorperazine Edisylate (Compazine) 5 mg PACU PRN PRN IV NAUSEA, MRX1; Start 06/12/18 at 07:00; Stop 06/12/18 at 11:49; Status DC Lactobacillus Rhamnosus (Culturelle) 1 cap BID PO Last administered on at 08:16; Start 06/12/18 at 21:00 Propofol 20 ml @ As Directed STK-MED ONCE IV ; Start 06/12/18 at 07:48; Stop 01/21 at 07:49; Status DC Lidocaine HCl (Lidocaine Pf 2% Vial) 5 ml STK-MED ONCE .ROUTE ; Start 06/12/18 at 07:48; Stop 06/12/18 at 07:49; Status DC Fentanyl Citrate (Fentanyl 2ml Vial) 100 mcg STK-MED ONCE .ROUTE ; Start at 08:11; Stop 06/12/18 at 08:13; Status DC Dexamethasone Sodium Phosphate (Decadron) 20 mg STK-MED ONCE .ROUTE ; Start 01/21 at 08:20; Stop 06/12/18 at 08:21; Status DC Ondansetron HCl (Zofran) 4 mg STK-MED ONCE .ROUTE ; Start 06/12/18 at 08:20; Stop 06/12/18 at 08:21; Status DC Sevoflurane (Ultane) 15 ml STK-MED ONCE IH ; Start 06/12/18 at 08:20; Stop 06/12 at 08:21; Status DC Daptomycin 540 mg/ Sodium Chloride 50 ml @ 100 mls/hr Q24H IV ; Start 06/12/18 at 14:00; Stop 06/12/18 at 14:00; Status DC Daptomycin 500 mg/ Sodium Chloride 50 ml @ 100 mls/hr Q24H IV Last administered on 06/16/18at 16:37; Start 06/12/18 at 16:00; Stop 06/17/18 at 08:26 ; Status DC Insulin Human Lispro (HumaLOG) 5 units 1X ONCE SQ Last administered on at 23:19; Start 06/12/18 at 21:30; Stop 06/12/18 at 22:32; Status DC Multivitamins (Thera M Plus) 1 tab DAILY PO Last administered on 06/18/18at 08: 16; Start 06/13/18 at 10:00 Sodium Chloride 1,000 ml @ 125 mls/hr 1X ONCE IV Last administered on at 16:19; Start 06/13/18 at 15:00; Stop 06/13/18 at 22:59; Status DC Sodium Chloride 250 ml @ 250 mls/hr 1X ONCE IV Last administered on at 16:19; Start 06/13/18 at 15:00; Stop 06/13/18 at 15:59; Status DC Iodixanol (Visipaque 320) 100 ml STK-MED ONCE .ROUTE ; Start 06/14/18 at 13:01; Stop 06/14/18 at 13:02; Status DC Lidocaine HCl (Lidocaine 1% 20ml Vial) 20 ml STK-MED ONCE .ROUTE ; Start at 13:01; Stop 06/14/18 at 13:02; Status DC Heparin Sodium/ Sodium Chloride 1,500 ml @ As Directed STK-MED ONCE .ROUTE ; Start 06/14/18 at 13:01; Stop 06/14/18 at 13:02; Status DC Midazolam HCl (Versed) 5 mg STK-MED ONCE .ROUTE ; Start 06/14/18 at 14:10; Stop 06/14/18 at 14:13; Status DC Fentanyl Citrate (Fentanyl 2ml Vial) 100 mcg STK-MED ONCE .ROUTE ; Start at 14:11; Stop 06/14/18 at 14:13; Status DC Heparin Sodium (Porcine) (Heparin Sodium) 10,000 unit STK-MED ONCE .ROUTE ; Start 06/14/18 at 14:11; Stop 06/14/18 at 14:13; Status DC Heparin Sodium/ Sodium Chloride (HEPARIN for ARTERIAL LINE FLUSH) 1,000 unit 1X ONCE IART Last administered on 06/14/18at 14:48; Start 06/14/18 at 14:15; Stop 06/14/18 at 14:27; Status DC Heparin Sodium/ Sodium Chloride (HEPARIN for ARTERIAL LINE FLUSH) 1,000 unit 1X ONCE IART Last administered on 06/14/18at 14:51; Start 06/14/18 at 14:15; Stop 06/14/18 at 14:27; Status DC Midazolam HCl (Versed) 5 mg 1X ONCE IV Last administered on 06/14/18at 14:53; Start 06/14/18 at 14:15; Stop 06/14/18 at 14:27; Status DC Fentanyl Citrate (Fentanyl 2ml Vial) 100 mcg 1X ONCE IV Last administered on at 14:53; Start 06/14/18 at 14:15; Stop 06/14/18 at 14:27; Status DC Iodixanol (Visipaque 320) 100 ml 1X ONCE IART Last administered on 06/14/18at 14:52; Start 06/14/18 at 14:15; Stop 06/14/18 at 14:27; Status DC Lidocaine HCl 20 ml 1X ONCE IJ ; Start 06/14/18 at 14:15; Stop 06/14/18 at 14: 16; Status Cancel Info (CONTRAST GIVEN -- Rx MONITORING) 1 each PRN DAILY PRN MC SEE COMMENTS; Start 06/14/18 at 14:30; Stop 06/16/18 at 14:29; Status DC Lidocaine HCl (Lidocaine 1% 20ml Vial) 20 ml 1X ONCE INJ Last administered on 06/14/18at 14:54; Start 06/14/18 at 15:00; Stop 06/14/18 at 15:01; Status DC Potassium Chloride (Klor-Con) 40 meq 1X ONCE PO Last administered on at 17:18; Start 06/14/18 at 14:45; Stop 06/14/18 at 14:53; Status DC Ondansetron HCl (Zofran) 4 mg PRN Q6HRS PRN IV NAUSEA/VOMITING; Start 06/15/18 at 07:00; Stop 06/16/18 at 06:59; Status DC Fentanyl Citrate (Fentanyl 2ml Vial) 25 mcg PRN Q5MIN PRN IV MILD PAIN; Start 06/15/18 at 07:00; Stop 06/16/18 at 06:59; Status DC Fentanyl Citrate (Fentanyl 2ml Vial) 50 mcg PRN Q5MIN PRN IV MODERATE TO SEVERE PAIN; Start 06/15/18 at 07:00; Stop 06/16/18 at 06:59; Status DC Morphine Sulfate (Morphine Sulfate) 1 mg PRN Q10MIN PRN IV SEVERE PAIN; Start 06/15/18 at 07:00; Stop 06/16/18 at 06:59; Status DC Ringer's Solution 1,000 ml @ 30 mls/hr Q24H IV ; Start 06/15/18 at 07:00; Stop 06/15/18 at 15:55; Status DC Hydromorphone HCl (Dilaudid) 0.5 mg PRN Q10MIN PRN IV SEV PAIN, Second choice; Start 06/15/18 at 07:00; Stop 06/16/18 at 06:59; Status DC Prochlorperazine Edisylate (Compazine) 5 mg PACU PRN PRN IV NAUSEA, MRX1; Start 06/15/18 at 07:00; Stop 06/16/18 at 06:59; Status DC Sodium Chloride 1,000 ml @ 100 mls/hr Q10H IV Last administered on 06/16/18at 03:03; Start 06/14/18 at 16:15; Stop 06/16/18 at 07:39; Status DC Cefazolin Sodium 1 gm/Sodium Chloride 500 ml @ 500 mls/hr ONCE ONCE IRR Last administered on 06/15/18at 08:08; Start 06/15/18 at 06:00; Stop 06/15/18 at 06:59 ; Status DC Heparin Sodium (Porcine) 5000 unit/Sodium Chloride 505 ml @ 505 mls/hr ONCE ONCE IRR Last administered on 06/15/18at 08:08; Start 06/15/18 at 06:00; Stop at 06:59; Status DC Iohexol (Omnipaque 300 Mg/ml) 100 ml STK-MED ONCE .ROUTE Last administered on at 08:08; Start 06/15/18 at 05:57; Stop 06/15/18 at 06:57; Status DC Cellulose (Surgicel Fibrillar 1x2) 1 each STK-MED ONCE .ROUTE Last administered on 06/15/18at 10:32; Start 06/15/18 at 05:57; Stop 06/15/18 at 06:57 ; Status DC Rocuronium [place] (Zemuron) 50 mg STK-MED ONCE .ROUTE ; Start 06/15/18 at 07:15 ; Stop 06/15/18 at 07:16; Status DC Fentanyl Citrate (Fentanyl 2ml Vial) 100 mcg STK-MED ONCE .ROUTE ; Start at 07:15; Stop 06/15/18 at 07:17; Status DC Sevoflurane (Ultane) 90 ml STK-MED ONCE IH ; Start 06/15/18 at 07:16; Stop 06/15 at 07:17; Status DC Phenylephrine HCl (Bobby-Synephrine Inj) 10 mg STK-MED ONCE .ROUTE ; Start at 07:16; Stop 06/15/18 at 07:17; Status DC Dexamethasone Sodium Phosphate (Decadron) 20 mg STK-MED ONCE .ROUTE ; Start at 07:16; Stop 06/15/18 at 07:17; Status DC Ondansetron HCl (Zofran) 4 mg STK-MED ONCE .ROUTE ; Start 06/15/18 at 07:16; Stop 06/15/18 at 07:17; Status DC Lidocaine HCl (Lidocaine Pf 2% Vial) 5 ml STK-MED ONCE .ROUTE ; Start 06/15/18 at 07:16; Stop 06/15/18 at 07:17; Status DC Propofol 20 ml @ As Directed STK-MED ONCE IV ; Start 06/15/18 at 07:16; Stop at 07:17; Status DC Bupivacaine HCl/ Epinephrine Bitart (Sensorcaine-Epi 0.25%-1:128867 Mpf) 30 ml STK-MED ONCE .ROUTE Last administered on 06/15/18at 08:08; Start 06/15/18 at 07: 06; Stop 06/15/18 at 08:07; Status DC Rocuronium [place] (Zemuron) 50 mg STK-MED ONCE .ROUTE ; Start 06/15/18 at 08:48 ; Stop 06/15/18 at 08:49; Status DC Protamine Sulfate (Protamine) 50 mg STK-MED ONCE IV ; Start 06/15/18 at 10:31; Stop 06/15/18 at 10:33; Status DC Neostigmine Methylsulfate (Bloxiverz) 10 mg STK-MED ONCE .ROUTE ; Start at 10:52; Stop 06/15/18 at 10:53; Status DC Glycopyrrolate (Robinul) 1 mg STK-MED ONCE .ROUTE ; Start 06/15/18 at 10:52; Stop 06/15/18 at 10:53; Status DC Morphine Sulfate (Morphine Sulfate) 10 mg STK-MED ONCE .ROUTE ; Start 06/15/18 at 11:00; Stop 06/15/18 at 11:01; Status DC Ondansetron HCl (Zofran) 4 mg PRN Q6HRS PRN IV NAUSEA/VOMITING; Start 06/15/18 at 11:15; Stop 06/15/18 at 20:00; Status DC Fentanyl Citrate (Fentanyl 2ml Vial) 25 mcg PRN Q5MIN PRN IV MILD PAIN; Start 06/15/18 at 11:15; Stop 06/15/18 at 20:00; Status DC Fentanyl Citrate (Fentanyl 2ml Vial) 50 mcg PRN Q5MIN PRN IV MODERATE TO SEVERE PAIN; Start 06/15/18 at 11:15; Stop 06/15/18 at 20:00; Status DC Morphine Sulfate (Morphine Sulfate) 1 mg PRN Q10MIN PRN IV SEVERE PAIN; Start 06/15/18 at 11:15; Stop 06/15/18 at 20:00; Status DC Ringer's Solution 1,000 ml @ 30 mls/hr Q24H IV ; Start 06/15/18 at 11:06; Stop 06/15/18 at 15:55; Status DC Lidocaine HCl (Xylocaine-Mpf 1% 2ml Vial) 2 ml PRN 1X PRN ID PRIOR TO IV START ; Start 06/15/18 at 11:15; Stop 06/15/18 at 20:00; Status DC Hydromorphone HCl (Dilaudid) 0.5 mg PRN Q10MIN PRN IV SEV PAIN, Second choice; Start 06/15/18 at 11:15; Stop 06/15/18 at 20:00; Status DC Prochlorperazine Edisylate (Compazine) 5 mg PACU PRN PRN IV NAUSEA, MRX1; Start 06/15/18 at 11:15; Stop 06/15/18 at 20:00; Status DC Lidocaine HCl (Lidocaine Pf 2% Vial) 5 ml STK-MED ONCE .ROUTE ; Start 06/15/18 at 11:10; Stop 06/15/18 at 11:11; Status DC Oxycodone HCl (Roxicodone) 5 mg PRN Q3HRS PRN PO MILD PAIN 2ND CHOICE; Start at 12:15 Diphenhydramine HCl (Benadryl) 25 mg PRN Q6HRS PRN PO ITCHING; Start 06/15/18 at 12:15 Diphenhydramine HCl (Benadryl) 25 mg PRN Q6HRS PRN IV ITCHING; Start 06/15/18 at 12:15 Zolpidem Tartrate (Ambien) 5 mg PRN QHS PRN PO INSOMNIA; Start 06/15/18 at 12: 15 Info (Non-Icu Electrolyte Protocol) 1 ea DAILY MC Last administered on at 08:15; Start 06/16/18 at 09:00 Naloxone HCl (Narcan) 0.1 mg PRN Q2MIN PRN IV ADMIN; Start 06/15/18 at 12:15 Sodium Chloride (Normal Saline Flush) 3 ml QSHIFT PRN IV AFTER MEDS AND BLOOD DRAWS; Start 06/15/18 at 12:15 Sodium Chloride 1,000 ml @ 100 mls/hr Q10H IV ; Start 06/15/18 at 13:00; Status Cancel Oxycodone/ Acetaminophen (Percocet 5/325) 1 tab PRN Q4HRS PRN PO MILD PAIN, 1ST CHOICE Last administered on 06/16/18at 11:43; Start 06/15/18 at 12:15 Oxycodone/ Acetaminophen (Percocet 5/325) 2 tab PRN Q4HRS PRN PO MODERATE PAIN , SEVERE PAIN; Start 06/15/18 at 12:15 Morphine Sulfate (Morphine Sulfate) 2 mg PRN Q1HR PRN IV PAIN; Start 06/15/18 at 12:15 Docusate Sodium (Colace) 100 mg PRN BID PRN PO constipation; Start 06/15/18 at 12:15 Ondansetron HCl (Zofran) 4 mg PRN Q6HRS PRN IV NAUESA, 1ST CHOICE; Start at 12:15 Prochlorperazine Edisylate (Compazine) 5 mg PRN Q6HRS PRN IV N/V, 2nd Choice, MR X1; Start 06/15/18 at 12:15 Hydralazine HCl (Apresoline Inj) 5 mg PRN Q4HRS PRN IVP ELEVATED BP, SEE COMMENTS Last administered on 06/18/18at 04:00; Start 06/15/18 at 12:15 Labetalol HCl (Normodyne Iv Push) 10 mg PRN Q2HR PRN IVP HYPERTENSION, SEE COMMENTS; Start 06/15/18 at 12:15 Meropenem 500 mg/ Sodium Chloride 50 ml @ 100 mls/hr Q8HRS IV Last administered on 06/18/18at 06:05; Start 06/16/18 at 12:00 Potassium Chloride (Klor-Con) 40 meq 1X ONCE PO Last administered on at 08:13; Start 06/17/18 at 07:15; Stop 06/17/18 at 07:16; Status DC Ondansetron HCl (Zofran) 4 mg PRN Q6HRS PRN IV NAUSEA/VOMITING; Start 06/20/18 at 07:00; Stop 06/20/18 at 20:00 Fentanyl Citrate (Fentanyl 2ml Vial) 25 mcg PRN Q5MIN PRN IV MILD PAIN; Start 06/20/18 at 07:00; Stop 06/20/18 at 20:00 Fentanyl Citrate (Fentanyl 2ml Vial) 50 mcg PRN Q5MIN PRN IV MODERATE TO SEVERE PAIN; Start 06/20/18 at 07:00; Stop 06/20/18 at 20:00 Morphine Sulfate (Morphine Sulfate) 1 mg PRN Q10MIN PRN IV SEVERE PAIN; Start 06/20/18 at 07:00; Stop 06/20/18 at 20:00 Ringer's Solution 1,000 ml @ 30 mls/hr Q24H IV ; Start 06/20/18 at 07:00; Stop 06/20/18 at 18:59 Lidocaine HCl (Xylocaine-Mpf 1% 2ml Vial) 2 ml PRN 1X PRN ID PRIOR TO IV START ; Start 06/20/18 at 07:00; Stop 06/20/18 at 20:00 Hydromorphone HCl (Dilaudid) 0.5 mg PRN Q10MIN PRN IV SEV PAIN, Second choice; Start 06/20/18 at 07:00; Stop 06/20/18 at 20:00 Prochlorperazine Edisylate (Compazine) 5 mg PACU PRN PRN IV NAUSEA, MRX1; Start 06/20/18 at 07:00; Stop 06/20/18 at 20:00 Active Scripts Active Reported Aspirin 325 Mg Tablet 325 Mg PO DAILY Celebrex (Celecoxib) 200 Mg Capsule 200 Mg PO DAILY 30 Days Furosemide 40 Mg Tablet 40 Mg PO DAILY Diovan Hct 160-12.5 Mg Tab (Valsartan/Hydrochlorothiazide) 1 Each Tablet 1 Each PO DAILY Atorvastatin Calcium 40 Mg Tablet 40 Mg PO HS Jardiance (Empagliflozin) 25 Mg Tablet 25 Mg PO DAILY Glimepiride 4 Mg Tablet 4 Mg PO DAILY Metformin Hcl 500 Mg Tablet 500 Mg PO BIDWMEALS Allergies Allergies: Coded Allergies: No Known Drug Allergies (Unverified , 06/10/18) ROS General: YES: Fatigue PSYCHOLOGICAL ROS: YES: Anxiety Eyes: Yes Decreased vision HEENT: YES: Heacaches Respiratory: YES: Cough Cardiovascular: yes Edema, yes Lt Headedness Gastrointestinal: Yes Constipation Genitourinary: YES Frequency, YES Other (NOCTURIA) Musculoskeletal: Yes Joint Pain, Yes Joint Stiffness, Yes Muscular Weakness Neurological: Yes Weakness Skin: Yes Dry Skin Physical Exam General: Alert, Oriented X3, Cooperative, No acute distress HEENT: Atraumatic, PERRLA, EOMI, Mucous membr. moist/pink Lungs: Clear to auscultation, Normal air movement Heart: Regular rate, Normal S1, Normal S2 Abdomen: Normal bowel sounds, Soft Extremities: No clubbing Neuro: Normal speech, Cranial nerves 3-12 NL Psych/Mental Status: Mental status NL, Mood NL MUSCULOSKELETAL: No joint tenderness Vitals VITALS Vital Signs Date Time Temp Pulse Resp B/P (MAP) Pulse Ox O2 Delivery O2 Flow Rate FiO2 06/18/18 08:17 70 182/80 06/18/18 07:30 Room Air 06/18/18 07:00 98.3 18 98.3 06/18/18 03:41 96 Labs Labs Laboratory Tests Test 06/16/18 12:33 06/16/18 17:32 06/16/18 20:38 06/17/18 03:00 Glucose (Fingerstick) 163 mg/dL (70-99) 173 mg/dL (70-99) 191 mg/dL (70-99) White Blood Count 8.9 x10^3/uL (4.0-11.0) Red Blood Count 4.22 x10^6/uL (4.30-5.70) Hemoglobin 12.7 g/dL (13.0-17.5) Hematocrit 38.6 % (39.0-53.0) Mean Corpuscular Volume 92 fL (79-100) Mean Corpuscular Hemoglobin 30 pg (25-35) Mean Corpuscular Hemoglobin Concent 33 g/dL (31-37) Red Cell Distribution Width 14.4 % (11.5-14.5) Platelet Count 311 x10^3/uL (140-400) Neutrophils (%) (Auto) 75 % (31-73) Lymphocytes (%) (Auto) 14 % (24-48) Monocytes (%) (Auto) 8 % (0-9) Eosinophils (%) (Auto) 4 % (0-3) Basophils (%) (Auto) 1 % (0-3) Neutrophils # (Auto) 6.7 x10^3uL (1.8-7.7) Lymphocytes # (Auto) 1.2 x10^3/uL (1.0-4.8) Monocytes # (Auto) 0.7 x10^3/uL (0.0-1.1) Eosinophils # (Auto) 0.3 x10^3/uL (0.0-0.7) Basophils # (Auto) 0.0 x10^3/uL (0.0-0.2) Sodium Level 142 mmol/L (136-145) Potassium Level 3.3 mmol/L (3.5-5.1) Chloride Level 104 mmol/L (98-107) Carbon Dioxide Level 25 mmol/L (21-32) Anion Gap 13 (6-14) Blood Urea Nitrogen 40 mg/dL (8-26) Creatinine 2.3 mg/dL (0.7-1.3) Estimated GFR (Cockcroft-Gault) 27.6 Glucose Level 115 mg/dL (70-99) Calcium Level 8.5 mg/dL (8.5-10.1) Test 06/17/18 06:56 06/17/18 17:12 06/17/18 20:47 Glucose (Fingerstick) 102 mg/dL (70-99) 169 mg/dL (70-99) 172 mg/dL (70-99) Laboratory Tests Test 06/17/18 17:12 06/17/18 20:47 Glucose (Fingerstick) 169 mg/dL (70-99) 172 mg/dL (70-99) Assessment/Plan Assessment/Plan IMP [id number] MILD HYPOKALEMIA CKD STAGE 3 WITH BASELINE CR OF 1.4-2.0 S/P RIGHT FEM-PERONEAL BYPASS S/P TOE AMP DM II HTN PAD ANEMIA LEUCOCYTOSIS COPD-TOBACCOISM PLAN NEED HYDRATION STOP ALL DIURETICS, CELEBREX AND COZAAR SUGGEST STOPPING METFORMIN WHILE IN IFTIKHAR RENAL SONO IF CR NOT BETTER IN 24 TO 48 HOURS WILL FOLLOW JENNIFER EDMOND MD Jun 18, 2018 11:15
[2018-06-18 11:25] LABS: CALCIUM 8.2 mg/dL (8.5-10.1); CREATININE 2.6 mg/dL (0.7-1.3); GFR 23.9; POTASSIUM 3.3 mmol/L (3.5-5.1)
[2018-06-18] MEDS ORDERED: POTASSIUM CHLORIDE 20 MEQ TABLET.ER. PO ONE (12:00)
--- NOTE | 2018-06-18 12:08 | PDOC ---
Provider Note Provider Note vss, bp labile, glucose ok- will dc metformin re ramiro peters, rupali for now- sleeping at present MERISSA PERRY MD Jun 18, 2018 12:08
[2018-06-18] MEDS: amLODIPine BESYLATE 5 MG TABLET PO SCH (14:19)
[2018-06-18 15:00] VITALS: BP 127/71
--- NOTE | 2018-06-18 15:42 | PDOC ---
Infectious Disease Note Subjective Subjective Feeling alright, comfortable but tired Denies pain/N/V/D No F/C/S ROS ROS per HPI Vital Sign Vital Signs Vital Signs Date Time Temp Pulse Resp B/P (MAP) Pulse Ox O2 Delivery O2 Flow Rate FiO2 06/18/18 15:00 97.5 72 16 127/71 (89) 98 Room Air 97.5 Physical Exam PHYSICAL EXAM GENERAL: Propped up in bed, resting quietly HEENT: Normal conjunctivae. Oral cavity: Pharynx pink and moist. LUNGS: Clear to auscultation. HEART: S1, S2. ABDOMEN: Nondistended, soft and nontender with bowel sounds present. EXTREMITIES: RLE edema, incisions well-approx. wound vac to right groin and right foot areas SKIN: Warm without rash. NEUROLOGIC: Arouses to name, responds appropriately PIV - ok Labs Lab Laboratory Tests Test 06/17/18 17:12 06/17/18 20:47 06/18/18 07:29 06/18/18 10:49 Glucose (Fingerstick) 169 mg/dL (70-99) 172 mg/dL (70-99) 121 mg/dL (70-99) Sodium Level 140 mmol/L (136-145) Potassium Level 3.3 mmol/L (3.5-5.1) Chloride Level 105 mmol/L (98-107) Carbon Dioxide Level 22 mmol/L (21-32) Anion Gap 13 (6-14) Blood Urea Nitrogen 47 mg/dL (8-26) Creatinine 2.6 mg/dL (0.7-1.3) Estimated GFR (Cockcroft-Gault) 23.9 Glucose Level 168 mg/dL (70-99) Calcium Level 8.2 mg/dL (8.5-10.1) Test 06/18/18 11:41 Glucose (Fingerstick) 167 mg/dL (70-99) Micro AEROBIC RES 1 Final Enterobacter cloacae 4+ ANTIMICROBIAL SUSCEPTIBILITY Final Comment S = Susceptible; I = Intermediate; R = Resistant P = Positive; N = Negative MICS are expressed in micrograms per mL Antibiotic RSLT#1 RSLT#2 RSLT#3 RSLT#4 Amoxicillin/Clavulanic Acid R>=32 Cefazolin R>=64 Cefepime S<=0.12 Cefuroxime R =R Ciprofloxacin S<=0.25 Ertapenem S<=0.12 Gentamicin S<=1 Imipenem S<=0.25 Levofloxacin S<=0.12 Meropenem S<=0.25 Tetracycline S<=1 Tobramycin S<=1 Trimethoprim/Sulfa S<=20 Objective Assessment Diabetic ulcer right foot with cellulitis, s/p I and D, 06/12 intra-op cultures grew bacteroides, Enterobacter & klebsiella. 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 cultures grew Enterobacter so far Diabetes with peripheral neuropathy IFTIKHAR on CKD, renal following Tobacco dependency HLD HTN COPD Plan Plan of Care Continue meropenem labs in am f/u cultures Local wound care Supportive care D/w nursing Patient seen and examined. Chart reviewed in detail. Case discussed with [employer] ASSOCIATE. Agree with above plan. CHRISTIAN CHOPRA APRN Jun 18, 2018 15:42 VINICIUS GOMEZ MD Jun 18, 2018 20:14
[2018-06-18 19:15] VITALS: BP 147/71
[2018-06-18] MEDS: ATORVASTATIN CALCIUM 40 MG TABLET. PO SCH (20:47)
[2018-06-18 23:39] VITALS: BP 146/66
[2018-06-19 03:40] VITALS: BP 147/67
[2018-06-19 05:03] LABS: CALCIUM 8.5 mg/dL (8.5-10.1); CREATININE 2.4 mg/dL (0.7-1.3); GFR 26.2; POTASSIUM 3.8 mmol/L (3.5-5.1)
[2018-06-19] MEDS: MEROPENEM 500 MG in IV NORMAL SALINE 50ML 50 ML IV SCH ×3 (05:21→22:16)
[2018-06-19 07:39] VITALS: BP 161/69
[2018-06-19] MEDS: GLIMEPIRIDE 2 MG TABLET. PO SCH (08:54)
[2018-06-19] MEDS: LACTOBACILLUS RHAMNOSUS GG 1 CAPSULE. PO SCH ×2 (08:54→22:15)
[2018-06-19] MEDS: MULTIVITAMIN with MINERAL TABLET. PO SCH (08:54)
[2018-06-19] MEDS: ASPIRIN 325 MG TABLET PO SCH (08:54)
[2018-06-19] MEDS: amLODIPine BESYLATE 5 MG TABLET PO SCH (08:54)
--- NOTE | 2018-06-19 08:57 | PDOC ---
Infectious Disease Note Subjective Subjective woke up around 1:30 this morning and couldn't get back to sleep Feeling alright Appete good Denies pain/N/V/D/F/C/S ROS ROS per HPI Vital Sign Vital Signs Vital Signs Date Time Temp Pulse Resp B/P (MAP) Pulse Ox O2 Delivery O2 Flow Rate FiO2 06/19/18 07:39 98.0 75 20 161/69 (99) 97 Room Air 98.0 Physical Exam PHYSICAL EXAM GENERAL: Propped up in bed, alert, NAD HEENT: Normal conjunctivae. Oral cavity: Pharynx pink and moist. LUNGS: Clear to auscultation. HEART: S1, S2. ABDOMEN: Nondistended, soft and nontender with bowel sounds present. EXTREMITIES: RLE edema, incisions well-approx. wound vac to right groin and right foot areas SKIN: Warm without rash. NEUROLOGIC: Alert, responds appropriately PIV - ok Labs Lab Laboratory Tests Test 06/18/18 10:49 06/18/18 11:41 06/18/18 16:15 06/18/18 20:55 Sodium Level 140 mmol/L (136-145) Potassium Level 3.3 mmol/L (3.5-5.1) Chloride Level 105 mmol/L (98-107) Carbon Dioxide Level 22 mmol/L (21-32) Anion Gap 13 (6-14) Blood Urea Nitrogen 47 mg/dL (8-26) Creatinine 2.6 mg/dL (0.7-1.3) Estimated GFR (Cockcroft-Gault) 23.9 Glucose Level 168 mg/dL (70-99) Calcium Level 8.2 mg/dL (8.5-10.1) Glucose (Fingerstick) 167 mg/dL (70-99) 155 mg/dL (70-99) 161 mg/dL (70-99) Test 06/19/18 04:30 06/19/18 07:59 Sodium Level 140 mmol/L (136-145) Potassium Level 3.8 mmol/L (3.5-5.1) Chloride Level 106 mmol/L (98-107) Carbon Dioxide Level 22 mmol/L (21-32) Anion Gap 12 (6-14) Blood Urea Nitrogen 47 mg/dL (8-26) Creatinine 2.4 mg/dL (0.7-1.3) Estimated GFR (Cockcroft-Gault) 26.2 Glucose Level 158 mg/dL (70-99) Calcium Level 8.5 mg/dL (8.5-10.1) Glucose (Fingerstick) 114 mg/dL (70-99) Micro AEROBIC RES 1 Final Enterobacter cloacae 4+ ANTIMICROBIAL SUSCEPTIBILITY Final Comment S = Susceptible; I = Intermediate; R = Resistant P = Positive; N = Negative MICS are expressed in micrograms per mL Antibiotic RSLT#1 RSLT#2 RSLT#3 RSLT#4 Amoxicillin/Clavulanic Acid R>=32 Cefazolin R>=64 Cefepime S<=0.12 Cefuroxime R =R Ciprofloxacin S<=0.25 Ertapenem S<=0.12 Gentamicin S<=1 Imipenem S<=0.25 Levofloxacin S<=0.12 Meropenem S<=0.25 Tetracycline S<=1 Tobramycin S<=1 Trimethoprim/Sulfa S<=20 Objective Assessment Diabetic ulcer right foot with cellulitis, s/p I and D, 06/12 intra-op cultures grew bacteroides, Enterobacter & klebsiella. 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 cultures grew Enterobacter so far Diabetes with peripheral neuropathy IFTIKHAR on CKD, renal following Tobacco dependency HLD HTN COPD Plan Plan of Care Continue meropenem f/u cultures Local wound care Supportive care Further debridement in the OR planned for tomorrow, Wednesday Patient seen and examined. Chart reviewed in detail. 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 Agree with above plan. CHRISTIAN CHOPRA APRN Jun 19, 2018 08:57 VINICIUS GOMEZ MD Jun 19, 2018 21:28
[2018-06-19] MEDS: ELECTROLYTE (NON-ICU) PROTOCOL MC SCH (09:00)
--- NOTE | 2018-06-19 10:30 | PDOC ---
Provider Note Provider Note creat down 2.4 off meds, amlodipine ok re bp- plan for R foor debride 06/20, rest same- glucose ok off MERISSA Barba MD Jun 19, 2018 10:30
--- NOTE | 2018-06-19 10:58 | PDOC ---
Renal-Progress Notes Subjective Notes Notes NO NEW COMPLAINTS History of Present Illness Hx of present illness BETTER Vitals Vitals Vital Signs Date Time Temp Pulse Resp B/P (MAP) Pulse Ox O2 Delivery O2 Flow Rate FiO2 06/19/18 08:54 75 161/69 06/19/18 07:40 Room Air 06/19/18 07:39 98.0 20 97 98.0 Weight Weight [ ] I.O. Intake and Output Intake and Output 06/19/18 06:59 Intake Total 710 ml Output Total 1050 ml Balance -340 ml Intake Oral 660 ml IV Total 50 ml Output Urine Total 1050 ml Labs Labs Laboratory Tests Test 06/18/18 11:41 06/18/18 16:15 06/18/18 20:55 06/19/18 04:30 Glucose (Fingerstick) 167 mg/dL (70-99) 155 mg/dL (70-99) 161 mg/dL (70-99) Sodium Level 140 mmol/L (136-145) Potassium Level 3.8 mmol/L (3.5-5.1) Chloride Level 106 mmol/L (98-107) Carbon Dioxide Level 22 mmol/L (21-32) Anion Gap 12 (6-14) Blood Urea Nitrogen 47 mg/dL (8-26) Creatinine 2.4 mg/dL (0.7-1.3) Estimated GFR (Cockcroft-Gault) 26.2 Glucose Level 158 mg/dL (70-99) Calcium Level 8.5 mg/dL (8.5-10.1) Test 06/19/18 07:59 Glucose (Fingerstick) 114 mg/dL (70-99) Micro Micro Microbiology 06/10/18 Urine Culture - Final, Complete 06/10/18 Urine Culture Result 1 (JENARO) - Final, Complete 06/15/18 Anaerobic/Aerobic Culture, Resulted Pending 06/15/18 Anaerobic Culture Result 1 (JENARO), Resulted Pending 06/15/18 Aerobic Culture - Final, Resulted 06/15/18 Aerobic Culture Result 1 (JENARO) - Final, Resulted 06/15/18 Antimicrobic Susceptibility - Final, Resulted 06/15/18 Gram Stain - Final, Resulted 06/15/18 Gram Stain Result 1 (JENARO) - Final, Resulted 06/15/18 Gram Stain Result 2 (JENARO) - Final, Resulted Review of Systems Constitutional: yes: alert, oriented Ears/Nose/Throat: Yes: no symptom reported Eyes: Yes: no symptom reported Pulmonary: Yes no symptom reported Cardiovascular: Yes no symptom reported Gastrointestional: Yes: diarrhea Genitourinary: Yes: no symptom reported Musculoskeletal: Yes: no symptom reported Skin: Yes no symptom reported Psychiatric/Neurological: Yes: no symptom reported Endocrine: Yes: no symptom reported Physical Exam General Appearance: no apparent distress Skin: warm Respiratory: decreased breath sounds Heart: S1S2 Abdomen: soft, bowel sounds present Genitourinary: bladder flat Extremities: pulses present Neurology: alert, oriented, follow commands Assessment Assessment IMP [id number] CR DOWN TO 2.4 MILD HYPOKALEMIA CKD STAGE 3 WITH BASELINE CR OF 1.4-2.0 S/P RIGHT FEM-PERONEAL BYPASS S/P TOE AMP DM II HTN PAD ANEMIA LEUCOCYTOSIS COPD-TOBACCOISM PLAN CONT HYDRATION CONT TO HOLD ALL DIURETICS, CELEBREX AND COZAAR WILL FOLLOW JENNIFER EDMOND MD Jun 19, 2018 10:58
[2018-06-19 11:00] VITALS: BP 143/64
--- NOTE | 2018-06-19 11:01 | PDOC ---
PROGRESS NOTES Subjective Subjective Patient seen and examined in his hospital room today He is sitting up in a chair next the bed, has no new complaints. 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 He can likely go to rehabilitation with wound care afterwards likely Wednesday Nothing by mouth after midnight tonight Objective Objective Vital Signs Date Time Temp Pulse Resp B/P (MAP) Pulse Ox O2 Delivery O2 Flow Rate FiO2 06/19/18 08:54 75 161/69 06/19/18 07:40 Room Air 06/19/18 07:39 98.0 20 97 98.0 06/16/18 08:00 2.0 Intake and Output 06/19/18 07:00 Intake Total 710 ml Output Total 1050 ml Balance -340 ml Intake Oral 660 ml IV Total 50 ml Output Urine Total 1050 ml Comment Review of Relevant I have reviewed the following items evans (where applicable) has been applied. Labs Laboratory Tests Test 06/17/18 17:12 06/17/18 20:47 06/18/18 07:29 06/18/18 10:49 Glucose (Fingerstick) 169 mg/dL (70-99) 172 mg/dL (70-99) 121 mg/dL (70-99) Sodium Level 140 mmol/L (136-145) Potassium Level 3.3 mmol/L (3.5-5.1) Chloride Level 105 mmol/L (98-107) Carbon Dioxide Level 22 mmol/L (21-32) Anion Gap 13 (6-14) Blood Urea Nitrogen 47 mg/dL (8-26) Creatinine 2.6 mg/dL (0.7-1.3) Estimated GFR (Cockcroft-Gault) 23.9 Glucose Level 168 mg/dL (70-99) Calcium Level 8.2 mg/dL (8.5-10.1) Test 06/18/18 11:41 06/18/18 16:15 06/18/18 20:55 06/19/18 04:30 Glucose (Fingerstick) 167 mg/dL (70-99) 155 mg/dL (70-99) 161 mg/dL (70-99) Sodium Level 140 mmol/L (136-145) Potassium Level 3.8 mmol/L (3.5-5.1) Chloride Level 106 mmol/L (98-107) Carbon Dioxide Level 22 mmol/L (21-32) Anion Gap 12 (6-14) Blood Urea Nitrogen 47 mg/dL (8-26) Creatinine 2.4 mg/dL (0.7-1.3) Estimated GFR (Cockcroft-Gault) 26.2 Glucose Level 158 mg/dL (70-99) Calcium Level 8.5 mg/dL (8.5-10.1) Test 06/19/18 07:59 Glucose (Fingerstick) 114 mg/dL (70-99) Laboratory Tests Test 06/18/18 11:41 06/18/18 16:15 06/18/18 20:55 06/19/18 04:30 Glucose (Fingerstick) 167 mg/dL (70-99) 155 mg/dL (70-99) 161 mg/dL (70-99) Sodium Level 140 mmol/L (136-145) Potassium Level 3.8 mmol/L (3.5-5.1) Chloride Level 106 mmol/L (98-107) Carbon Dioxide Level 22 mmol/L (21-32) Anion Gap 12 (6-14) Blood Urea Nitrogen 47 mg/dL (8-26) Creatinine 2.4 mg/dL (0.7-1.3) Estimated GFR (Cockcroft-Gault) 26.2 Glucose Level 158 mg/dL (70-99) Calcium Level 8.5 mg/dL (8.5-10.1) Test 06/19/18 07:59 Glucose (Fingerstick) 114 mg/dL (70-99) Microbiology 06/10/18 Urine Culture - Final, Complete 06/10/18 Urine Culture Result 1 (JENARO) - Final, Complete 06/15/18 Anaerobic/Aerobic Culture, Resulted Pending 06/15/18 Anaerobic Culture Result 1 (JENARO), Resulted Pending 06/15/18 Aerobic Culture - Final, Resulted 06/15/18 Aerobic Culture Result 1 (JENARO) - Final, Resulted 06/15/18 Antimicrobic Susceptibility - Final, Resulted 06/15/18 Gram Stain - Final, Resulted 06/15/18 Gram Stain Result 1 (JENARO) - Final, Resulted 06/15/18 Gram Stain Result 2 (JENARO) - Final, Resulted Medications Current Medications Aspirin (Kaley Aspirin) 325 mg DAILY PO Last administered on 06/19/18at 08:54; Start 06/11/18 at 09:00 Atorvastatin Calcium (Lipitor) 40 mg HS PO Last administered on 06/18/18at 20:47 ; Start 06/10/18 at 21:00 Furosemide (Lasix) 40 mg DAILY PO Last administered on 06/18/18at 08:16; Start 06/11/18 at 09:00; Stop 06/18/18 at 11:17; Status DC Celecoxib (CeleBREX) 200 mg DAILY PO Last administered on 06/18/18at 08:16; Start 06/11/18 at 09:00; Stop 06/18/18 at 11:17; Status DC Non-Formulary Medication (Empagliflozin (Jardiance)) 25 mg DAILY PO ; Start 06/11 at 09:00; Stop 06/13/18 at 07:26; Status DC Glimepiride (Amaryl) 4 mg DAILY PO Last administered on 06/19/18at 08:54; Start 06/11/18 at 09:00 Metformin HCl (Glucophage) 500 mg BIDWMEALS PO Last administered on 06/18/18at 08:16; Start 06/10/18 at 17:30; Stop 06/18/18 at 12:00; Status DC Non-Formulary Medication (Valsartan/ Hydrochlorothiazide (Diovan Hct 160-12.5 Mg Tab)) 1 each DAILY PO ; Start 06/11/18 at 09:00; Status UNV Piperacillin Sod/ Tazobactam Sod 3.375 gm/Sodium Chloride 50 ml @ 100 mls/hr Q6HRS IV Last administered on 06/16/18at 05:27; Start 06/10/18 at 17:30; Stop at 11:20; Status DC Vancomycin HCl (Vanco Per Pharmacy) 1 each PRN DAILY PRN MC SEE COMMENTS Last administered on 06/12/18at 10:52; Start 06/10/18 at 16:45; Stop 06/12/18 at 13:51 ; Status DC Vancomycin HCl 2 gm/Sodium Chloride 500 ml @ 250 mls/hr 1X ONCE IV Last administered on 06/10/18at 18:12; Start 06/10/18 at 17:30; Stop 06/10/18 at 19:29; Status DC Losartan Potassium (Cozaar) 100 mg DAILY PO Last administered on 06/18/18at 08: 17; Start 06/11/18 at 09:00; Stop 06/18/18 at 11:17; Status DC Hydrochlorothiazide (Microzide) 12.5 mg DAILY PO Last administered on at 08:16; Start 06/11/18 at 09:00; Stop 06/18/18 at 11:17; Status DC Nicotine (Nicoderm Cq 21mg) 1 patch PRN DAILY PRN TD SMOKING CESSATION; Start 06/10/18 at 18:45 Vancomycin HCl 1.5 gm/Sodium Chloride 500 ml @ 250 mls/hr Q24H IV Last administered on 06/11/18at 18:03; Start 06/11/18 at 18:00; Stop 06/12/18 at 13:51; Status DC Vancomycin HCl (Vancomycin Trough Level) 1 each 1X ONCE MC ; Start 06/12/18 at 17:30; Stop 06/12/18 at 17:31; Status Cancel Ondansetron HCl (Zofran) 4 mg PRN Q6HRS PRN IV NAUSEA/VOMITING; Start 06/12/18 at 07:00; Stop 06/12/18 at 11:49; Status DC Fentanyl Citrate (Fentanyl 2ml Vial) 25 mcg PRN Q5MIN PRN IV MILD PAIN; Start 06/12/18 at 07:00; Stop 06/12/18 at 11:49; Status DC Fentanyl Citrate (Fentanyl 2ml Vial) 50 mcg PRN Q5MIN PRN IV MODERATE TO SEVERE PAIN; Start 06/12/18 at 07:00; Stop 06/12/18 at 11:49; Status DC Morphine Sulfate (Morphine Sulfate) 1 mg PRN Q10MIN PRN IV SEVERE PAIN; Start 06/12/18 at 07:00; Stop 06/12/18 at 11:49; Status DC Ringer's Solution 1,000 ml @ 30 mls/hr Q24H IV ; Start 06/12/18 at 07:00; Stop 06/12/18 at 11:49; Status DC Lidocaine HCl (Xylocaine-Mpf 1% 2ml Vial) 2 ml PRN 1X PRN ID PRIOR TO IV START ; Start 06/12/18 at 07:00; Stop 06/12/18 at 11:49; Status DC Hydromorphone HCl (Dilaudid) 0.5 mg PRN Q10MIN PRN IV SEV PAIN, Second choice; Start 06/12/18 at 07:00; Stop 06/12/18 at 11:49; Status DC Prochlorperazine Edisylate (Compazine) 5 mg PACU PRN PRN IV NAUSEA, MRX1; Start 06/12/18 at 07:00; Stop 06/12/18 at 11:49; Status DC Lactobacillus Rhamnosus (Culturelle) 1 cap BID PO Last administered on at 08:54; Start 06/12/18 at 21:00 Propofol 20 ml @ As Directed STK-MED ONCE IV ; Start 06/12/18 at 07:48; Stop 01/21 at 07:49; Status DC Lidocaine HCl (Lidocaine Pf 2% Vial) 5 ml STK-MED ONCE .ROUTE ; Start 06/12/18 at 07:48; Stop 06/12/18 at 07:49; Status DC Fentanyl Citrate (Fentanyl 2ml Vial) 100 mcg STK-MED ONCE .ROUTE ; Start at 08:11; Stop 06/12/18 at 08:13; Status DC Dexamethasone Sodium Phosphate (Decadron) 20 mg STK-MED ONCE .ROUTE ; Start 01/21 at 08:20; Stop 06/12/18 at 08:21; Status DC Ondansetron HCl (Zofran) 4 mg STK-MED ONCE .ROUTE ; Start 06/12/18 at 08:20; Stop 06/12/18 at 08:21; Status DC Sevoflurane (Ultane) 15 ml STK-MED ONCE IH ; Start 06/12/18 at 08:20; Stop 06/12 at 08:21; Status DC Daptomycin 540 mg/ Sodium Chloride 50 ml @ 100 mls/hr Q24H IV ; Start 06/12/18 at 14:00; Stop 06/12/18 at 14:00; Status DC Daptomycin 500 mg/ Sodium Chloride 50 ml @ 100 mls/hr Q24H IV Last administered on 06/16/18at 16:37; Start 06/12/18 at 16:00; Stop 06/17/18 at 08:26 ; Status DC Insulin Human Lispro (HumaLOG) 5 units 1X ONCE SQ Last administered on at 23:19; Start 06/12/18 at 21:30; Stop 06/12/18 at 22:32; Status DC Multivitamins (Thera M Plus) 1 tab DAILY PO Last administered on 06/19/18at 08: 54; Start 06/13/18 at 10:00 Sodium Chloride 1,000 ml @ 125 mls/hr 1X ONCE IV Last administered on at 16:19; Start 06/13/18 at 15:00; Stop 06/13/18 at 22:59; Status DC Sodium Chloride 250 ml @ 250 mls/hr 1X ONCE IV Last administered on at 16:19; Start 06/13/18 at 15:00; Stop 06/13/18 at 15:59; Status DC Iodixanol (Visipaque 320) 100 ml STK-MED ONCE .ROUTE ; Start 06/14/18 at 13:01; Stop 06/14/18 at 13:02; Status DC Lidocaine HCl (Lidocaine 1% 20ml Vial) 20 ml STK-MED ONCE .ROUTE ; Start at 13:01; Stop 06/14/18 at 13:02; Status DC Heparin Sodium/ Sodium Chloride 1,500 ml @ As Directed STK-MED ONCE .ROUTE ; Start 06/14/18 at 13:01; Stop 06/14/18 at 13:02; Status DC Midazolam HCl (Versed) 5 mg STK-MED ONCE .ROUTE ; Start 06/14/18 at 14:10; Stop 06/14/18 at 14:13; Status DC Fentanyl Citrate (Fentanyl 2ml Vial) 100 mcg STK-MED ONCE .ROUTE ; Start at 14:11; Stop 06/14/18 at 14:13; Status DC Heparin Sodium (Porcine) (Heparin Sodium) 10,000 unit STK-MED ONCE .ROUTE ; Start 06/14/18 at 14:11; Stop 06/14/18 at 14:13; Status DC Heparin Sodium/ Sodium Chloride (HEPARIN for ARTERIAL LINE FLUSH) 1,000 unit 1X ONCE IART Last administered on 06/14/18at 14:48; Start 06/14/18 at 14:15; Stop 06/14/18 at 14:27; Status DC Heparin Sodium/ Sodium Chloride (HEPARIN for ARTERIAL LINE FLUSH) 1,000 unit 1X ONCE IART Last administered on 06/14/18at 14:51; Start 06/14/18 at 14:15; Stop 06/14/18 at 14:27; Status DC Midazolam HCl (Versed) 5 mg 1X ONCE IV Last administered on 06/14/18 14:53; Start 06/14/18 at 14:15; Stop 06/14/18 at 14:27; Status DC Fentanyl Citrate (Fentanyl 2ml Vial) 100 mcg 1X ONCE IV Last administered on 14:53; Start 06/14/18 at 14:15; Stop 06/14/18 at 14:27; Status DC Iodixanol (Visipaque 320) 100 ml 1X ONCE IART Last administered on 06/14/18at 14:52; Start 06/14/18 at 14:15; Stop 06/14/18 at 14:27; Status DC Lidocaine HCl 20 ml 1X ONCE IJ ; Start 06/14/18 at 14:15; Stop 06/14/18 at 14: 16; Status Cancel Info (CONTRAST GIVEN -- Rx MONITORING) 1 each PRN DAILY PRN MC SEE COMMENTS; Start 06/14/18 at 14:30; Stop 06/16/18 at 14:29; Status DC Lidocaine HCl (Lidocaine 1% 20ml Vial) 20 ml 1X ONCE INJ Last administered on 06/14/18at 14:54; Start 06/14/18 at 15:00; Stop 06/14/18 at 15:01; Status DC Potassium Chloride (Klor-Con) 40 meq 1X ONCE PO Last administered on at 17:18; Start 06/14/18 at 14:45; Stop 06/14/18 at 14:53; Status DC Ondansetron HCl (Zofran) 4 mg PRN Q6HRS PRN IV NAUSEA/VOMITING; Start 06/15/18 at 07:00; Stop 06/16/18 at 06:59; Status DC Fentanyl Citrate (Fentanyl 2ml Vial) 25 mcg PRN Q5MIN PRN IV MILD PAIN; Start 06/15/18 at 07:00; Stop 06/16/18 at 06:59; Status DC Fentanyl Citrate (Fentanyl 2ml Vial) 50 mcg PRN Q5MIN PRN IV MODERATE TO SEVERE PAIN; Start 06/15/18 at 07:00; Stop 06/16/18 at 06:59; Status DC Morphine Sulfate (Morphine Sulfate) 1 mg PRN Q10MIN PRN IV SEVERE PAIN; Start 06/15/18 at 07:00; Stop 06/16/18 at 06:59; Status DC Ringer's Solution 1,000 ml @ 30 mls/hr Q24H IV ; Start 06/15/18 at 07:00; Stop 06/15/18 at 15:55; Status DC Hydromorphone HCl (Dilaudid) 0.5 mg PRN Q10MIN PRN IV SEV PAIN, Second choice; Start 06/15/18 at 07:00; Stop 06/16/18 at 06:59; Status DC Prochlorperazine Edisylate (Compazine) 5 mg PACU PRN PRN IV NAUSEA, MRX1; Start 06/15/18 at 07:00; Stop 06/16/18 at 06:59; Status DC Sodium Chloride 1,000 ml @ 100 mls/hr Q10H IV Last administered on 06/16/18at 03:03; Start 06/14/18 at 16:15; Stop 06/16/18 at 07:39; Status DC Cefazolin Sodium 1 gm/Sodium Chloride 500 ml @ 500 mls/hr ONCE ONCE IRR Last administered on 06/15/18at 08:08; Start 06/15/18 at 06:00; Stop 06/15/18 at 06:59 ; Status DC Heparin Sodium (Porcine) 5000 unit/Sodium Chloride 505 ml @ 505 mls/hr ONCE ONCE IRR Last administered on 06/15/18at 08:08; Start 06/15/18 at 06:00; Stop at 06:59; Status DC Iohexol (Omnipaque 300 Mg/ml) 100 ml STK-MED ONCE .ROUTE Last administered on at 08:08; Start 06/15/18 at 05:57; Stop 06/15/18 at 06:57; Status DC Cellulose (Surgicel Fibrillar 1x2) 1 each STK-MED ONCE .ROUTE Last administered on 06/15/18at 10:32; Start 06/15/18 at 05:57; Stop 06/15/18 at 06:57 ; Status DC Rocuronium Charlotte (Zemuron) 50 mg STK-MED ONCE .ROUTE ; Start 06/15/18 at 07:15 ; Stop 06/15/18 at 07:16; Status DC Fentanyl Citrate (Fentanyl 2ml Vial) 100 mcg STK-MED ONCE .ROUTE ; Start at 07:15; Stop 06/15/18 at 07:17; Status DC Sevoflurane (Ultane) 90 ml STK-MED ONCE IH ; Start 06/15/18 at 07:16; Stop 06/15 at 07:17; Status DC Phenylephrine HCl (Bobby-Synephrine Inj) 10 mg STK-MED ONCE .ROUTE ; Start at 07:16; Stop 06/15/18 at 07:17; Status DC Dexamethasone Sodium Phosphate (Decadron) 20 mg STK-MED ONCE .ROUTE ; Start at 07:16; Stop 06/15/18 at 07:17; Status DC Ondansetron HCl (Zofran) 4 mg STK-MED ONCE .ROUTE ; Start 06/15/18 at 07:16; Stop 06/15/18 at 07:17; Status DC Lidocaine HCl (Lidocaine Pf 2% Vial) 5 ml STK-MED ONCE .ROUTE ; Start 06/15/18 at 07:16; Stop 06/15/18 at 07:17; Status DC Propofol 20 ml @ As Directed STK-MED ONCE IV ; Start 06/15/18 at 07:16; Stop at 07:17; Status DC Bupivacaine HCl/ Epinephrine Bitart (Sensorcaine-Epi 0.25%-1:491062 Mpf) 30 ml STK-MED ONCE .ROUTE Last administered on 06/15/18at 08:08; Start 06/15/18 at 07: 06; Stop 06/15/18 at 08:07; Status DC Rocuronium Charlotte (Zemuron) 50 mg STK-MED ONCE .ROUTE ; Start 06/15/18 at 08:48 ; Stop 06/15/18 at 08:49; Status DC Protamine Sulfate (Protamine) 50 mg STK-MED ONCE IV ; Start 06/15/18 at 10:31; Stop 06/15/18 at 10:33; Status DC Neostigmine Methylsulfate (Bloxiverz) 10 mg STK-MED ONCE .ROUTE ; Start at 10:52; Stop 06/15/18 at 10:53; Status DC Glycopyrrolate (Robinul) 1 mg STK-MED ONCE .ROUTE ; Start 06/15/18 at 10:52; Stop 06/15/18 at 10:53; Status DC Morphine Sulfate (Morphine Sulfate) 10 mg STK-MED ONCE .ROUTE ; Start 06/15/18 at 11:00; Stop 06/15/18 at 11:01; Status DC Ondansetron HCl (Zofran) 4 mg PRN Q6HRS PRN IV NAUSEA/VOMITING; Start 06/15/18 at 11:15; Stop 06/15/18 at 20:00; Status DC Fentanyl Citrate (Fentanyl 2ml Vial) 25 mcg PRN Q5MIN PRN IV MILD PAIN; Start 06/15/18 at 11:15; Stop 06/15/18 at 20:00; Status DC Fentanyl Citrate (Fentanyl 2ml Vial) 50 mcg PRN Q5MIN PRN IV MODERATE TO SEVERE PAIN; Start 06/15/18 at 11:15; Stop 06/15/18 at 20:00; Status DC Morphine Sulfate (Morphine Sulfate) 1 mg PRN Q10MIN PRN IV SEVERE PAIN; Start 06/15/18 at 11:15; Stop 06/15/18 at 20:00; Status DC Ringer's Solution 1,000 ml @ 30 mls/hr Q24H IV ; Start 06/15/18 at 11:06; Stop 06/15/18 at 15:55; Status DC Lidocaine HCl (Xylocaine-Mpf 1% 2ml Vial) 2 ml PRN 1X PRN ID PRIOR TO IV START ; Start 06/15/18 at 11:15; Stop 06/15/18 at 20:00; Status DC Hydromorphone HCl (Dilaudid) 0.5 mg PRN Q10MIN PRN IV SEV PAIN, Second choice; Start 06/15/18 at 11:15; Stop 06/15/18 at 20:00; Status DC Prochlorperazine Edisylate (Compazine) 5 mg PACU PRN PRN IV NAUSEA, MRX1; Start 06/15/18 at 11:15; Stop 06/15/18 at 20:00; Status DC Lidocaine HCl (Lidocaine Pf 2% Vial) 5 ml STK-MED ONCE .ROUTE ; Start 06/15/18 at 11:10; Stop 06/15/18 at 11:11; Status DC Oxycodone HCl (Roxicodone) 5 mg PRN Q3HRS PRN PO MILD PAIN 2ND CHOICE; Start at 12:15 Diphenhydramine HCl (Benadryl) 25 mg PRN Q6HRS PRN PO ITCHING; Start 06/15/18 at 12:15 Diphenhydramine HCl (Benadryl) 25 mg PRN Q6HRS PRN IV ITCHING; Start 06/15/18 at 12:15 Zolpidem Tartrate (Ambien) 5 mg PRN QHS PRN PO INSOMNIA; Start 06/15/18 at 12: 15 Info (Non-Icu Electrolyte Protocol) 1 ea DAILY MC Last administered on at 09:00; Start 06/16/18 at 09:00 Naloxone HCl (Narcan) 0.1 mg PRN Q2MIN PRN IV ADMIN; Start 06/15/18 at 12:15 Sodium Chloride (Normal Saline Flush) 3 ml QSHIFT PRN IV AFTER MEDS AND BLOOD DRAWS; Start 06/15/18 at 12:15 Sodium Chloride 1,000 ml @ 100 mls/hr Q10H IV ; Start 06/15/18 at 13:00; Status Cancel Oxycodone/ Acetaminophen (Percocet 5/325) 1 tab PRN Q4HRS PRN PO MILD PAIN, 1ST CHOICE Last administered on 06/16/18at 11:43; Start 06/15/18 at 12:15 Oxycodone/ Acetaminophen (Percocet 5/325) 2 tab PRN Q4HRS PRN PO MODERATE PAIN , SEVERE PAIN; Start 06/15/18 at 12:15 Morphine Sulfate (Morphine Sulfate) 2 mg PRN Q1HR PRN IV PAIN; Start 06/15/18 at 12:15 Docusate Sodium (Colace) 100 mg PRN BID PRN PO constipation; Start 06/15/18 at 12:15 Ondansetron HCl (Zofran) 4 mg PRN Q6HRS PRN IV NAUESA, 1ST CHOICE; Start at 12:15 Prochlorperazine Edisylate (Compazine) 5 mg PRN Q6HRS PRN IV N/V, 2nd Choice, MR X1; Start 06/15/18 at 12:15 Hydralazine HCl (Apresoline Inj) 5 mg PRN Q4HRS PRN IVP ELEVATED BP, SEE COMMENTS Last administered on 06/18/18at 04:00; Start 06/15/18 at 12:15 Labetalol HCl (Normodyne Iv Push) 10 mg PRN Q2HR PRN IVP HYPERTENSION, SEE COMMENTS; Start 06/15/18 at 12:15 Meropenem 500 mg/ Sodium Chloride 50 ml @ 100 mls/hr Q8HRS IV Last administered on 06/19/18at 05:21; Start 06/16/18 at 12:00 Potassium Chloride (Klor-Con) 40 meq 1X ONCE PO Last administered on at 08:13; Start 06/17/18 at 07:15; Stop 06/17/18 at 07:16; Status DC Ondansetron HCl (Zofran) 4 mg PRN Q6HRS PRN IV NAUSEA/VOMITING; Start 06/20/18 at 07:00; Stop 06/20/18 at 20:00 Fentanyl Citrate (Fentanyl 2ml Vial) 25 mcg PRN Q5MIN PRN IV MILD PAIN; Start 06/20/18 at 07:00; Stop 06/20/18 at 20:00 Fentanyl Citrate (Fentanyl 2ml Vial) 50 mcg PRN Q5MIN PRN IV MODERATE TO SEVERE PAIN; Start 06/20/18 at 07:00; Stop 06/20/18 at 20:00 Morphine Sulfate (Morphine Sulfate) 1 mg PRN Q10MIN PRN IV SEVERE PAIN; Start 06/20/18 at 07:00; Stop 06/20/18 at 20:00 Ringer's Solution 1,000 ml @ 100 mls/hr Q10H IV ; Start 06/20/18 at 07:00; Stop 06/20/18 at 18:59 Lidocaine HCl (Xylocaine-Mpf 1% 2ml Vial) 2 ml PRN 1X PRN ID PRIOR TO IV START ; Start 06/20/18 at 07:00; Stop 06/20/18 at 20:00 Hydromorphone HCl (Dilaudid) 0.5 mg PRN Q10MIN PRN IV SEV PAIN, Second choice; Start 06/20/18 at 07:00; Stop 06/20/18 at 20:00 Prochlorperazine Edisylate (Compazine) 5 mg PACU PRN PRN IV NAUSEA, MRX1; Start 06/20/18 at 07:00; Stop 06/20/18 at 20:00 Potassium Chloride (Klor-Con) 40 meq 1X ONCE PO Last administered on at 12:25; Start 06/18/18 at 12:00; Stop 06/18/18 at 12:01; Status DC Amlodipine Besylate (Norvasc) 2.5 mg DAILY PO Last administered on 06/19/18at 08 :54; Start 06/18/18 at 15:00 Active Scripts Active Reported Aspirin 325 Mg Tablet 325 Mg PO DAILY Celebrex (Celecoxib) 200 Mg Capsule 200 Mg PO DAILY 30 Days Furosemide 40 Mg Tablet 40 Mg PO DAILY Diovan Hct 160-12.5 Mg Tab (Valsartan/Hydrochlorothiazide) 1 Each Tablet 1 Each PO DAILY Atorvastatin Calcium 40 Mg Tablet 40 Mg PO HS Jardiance (Empagliflozin) 25 Mg Tablet 25 Mg PO DAILY Glimepiride 4 Mg Tablet 4 Mg PO DAILY Metformin Hcl 500 Mg Tablet 500 Mg PO BIDWMEALS Vitals/I & O Vital Sign - Last 24 Hours 06/18/18 06/18/18 06/18/18 06/18/18 11:00 14:19 15:00 19:15 Temp 98.0 97.5 97.6 98.0 97.5 97.6 Pulse 71 71 72 59 Resp 16 16 20 B/P (MAP) 128/55 (79) 128/55 127/71 (89) 147/71 (96) Pulse Ox 96 98 94 O2 Delivery Room Air Room Air Room Air 06/18/18 06/18/18 06/19/18 06/19/18 20:03 23:39 03:40 07:39 Temp 97.7 98.0 98.0 97.7 98.0 98.0 Pulse 65 63 75 Resp 20 21 20 B/P (MAP) 146/66 (92) 147/67 (93) 161/69 (99) Pulse Ox 96 94 97 O2 Delivery Room Air Room Air Room Air Room Air 06/19/18 06/19/18 07:40 08:54 Pulse 75 B/P (MAP) 161/69 O2 Delivery Room Air Intake and Output 06/18/18 06/18/18 06/19/18 15:00 23:00 07:00 Intake Total 230 ml 480 ml Output Total 600 ml 450 ml Balance -370 ml 30 ml MULUGETA BURRIS MD Jun 19, 2018 11:01
[2018-06-19 15:00] VITALS: BP 133/60
[2018-06-19 19:10] VITALS: BP 140/64
[2018-06-19] MEDS: ATORVASTATIN CALCIUM 40 MG TABLET. PO SCH (22:15)
[2018-06-19 23:51] VITALS: BP 141/65
[2018-06-20 03:38] VITALS: BP 173/69
[2018-06-20 04:39] LABS: CALCIUM 8.2 mg/dL (8.5-10.1); CREATININE 1.8 mg/dL (0.7-1.3); GFR 36.6; MAGNESIUM 2.1 mg/dL (1.8-2.4); PHOSPHORUS 3.3 mg/dL (2.6-4.7); POTASSIUM 3.7 mmol/L (3.5-5.1)
[2018-06-20] MEDS ORDERED: MORPHINE SULFATE 2 MG/ML VIAL. IV PRN (07:00)
[2018-06-20] MEDS: IV RINGERS,LACTATED 1000ML 1,000 ML IV SCH ×2 (07:00→17:00)
[2018-06-20] MEDS ORDERED: HYDROmorphone 2 MG/ML VIAL IV PRN (07:00)
[2018-06-20] MEDS ORDERED: ONDANSETRON PF 4 MG/2 ML VIAL. IV PRN (07:00)
[2018-06-20] MEDS ORDERED: PROCHLORPERAZINE 10 MG/2 ML VIAL. IV PRN (07:00)
[2018-06-20] MEDS ORDERED: LIDOCAINE 1% PF 2 ML VIAL. ID PRN (07:00)
[2018-06-20] MEDS ORDERED: fentaNYL PF VIAL 100 MCG/2 ML VIAL IV PRN ×2 (07:00)
[2018-06-20] MEDS ORDERED: LIDOCAINE 1% 20 ML VIAL. ONE (07:21)
[2018-06-20] MEDS ORDERED: silver sulfADIAZINE 1% CREAM 25GM TUBE. TP ONE (07:21)
[2018-06-20 07:25] VITALS: BP 159/69
[2018-06-20] MEDS ORDERED: SEVOFLURANE 61 TO 120 MINUTES. IH ONE (07:48)
[2018-06-20] MEDS ORDERED: fentaNYL PF VIAL 100 MCG/2 ML VIAL ONE (07:49)
[2018-06-20] MEDS ORDERED: LIDOCAINE 2% PF 5 ML VIAL. ONE (07:49)
[2018-06-20] MEDS ORDERED: ONDANSETRON PF 4 MG/2 ML VIAL. ONE (07:49)
[2018-06-20] MEDS ORDERED: PROPOFOL 20 ML IV ONE (07:49)
[2018-06-20] MEDS ORDERED: DEXAMETHASONE SOD PHOS 20 MG/5 ML VIAL. ONE (07:49)
[2018-06-20] MEDS: MEROPENEM 500 MG in IV NORMAL SALINE 50ML 50 ML IV SCH ×3 (08:30→22:24)
[2018-06-20] MEDS: ELECTROLYTE (NON-ICU) PROTOCOL MC SCH (09:00)
[2018-06-20] MEDS ORDERED: PHENYLEPHRINE 10 MG/ML VIAL. ONE (09:01)
--- NOTE | 2018-06-20 09:41 | PDOC ---
BRIEF OPERATIVE NOTE Date: Jun 20, 2018 Pre-Op Diagnosis PVD, s/p right femoral peroneal bypass, first toe amputation with necrotic tissue Post-Op Diagnosis same Procedure Performed Right first toe amputation site debridement with excision of subcutaneous tissue and bone Surgeon Dr. Thompson Vehicle Controls Engineer Chalino De Anda NP Anesthesia Type: General Blood Loss 25cc Specimens Obtained none Findings palpable graft pulse, pulsatile bleeding post debridement Complications none Operative Note see dictated note CHALINO DE ANDA COLLISION TECHNICIAN Jun 20, 2018 09:41
--- NOTE | 2018-06-20 10:42 | OP ---
DATE OF SURGERY: 06/20/2018 PREOPERATIVE DIAGNOSES: Necrotic right ray amputation site status post right femoral to peroneal artery bypass and ray amputation of the great toe. POSTOPERATIVE DIAGNOSES: Necrotic right ray amputation site status post right femoral to peroneal artery bypass and ray amputation of the great toe. OPERATION PERFORMED: Excisional debridement of the great toe amputation site including resection of the distal first metatarsal shaft. SURGEON: Annette Thompson M.D. SODA WORKER: BRENDA Gómez ANESTHESIA: General. INDICATIONS: This is a gentleman who underwent revascularization of the right leg and right ray amputation. His graft is nicely patent; however, he has developed necrotic tissue over the base of the wound requiring further debridement. The operation, risks and benefits were explained. The patient continues to have a nice palpable graft pulse. OPERATIVE FINDINGS: The wound bed bled very well following excisional debridement. There was in fact pulsatile bleeding from an arterial branch. The distal metatarsal shaft was resected back to healthy bone. Because of the bleeding issues, a wound VAC was not placed. The wound was packed and wound VAC will be placed tomorrow. DESCRIPTION OF PROCEDURE: The right foot was prepped and draped. Excisional debridement was done in a circumferential manner around the periphery of the wound. There was excellent bleeding from the skin and subcutaneous tissues. The dissection was carried down to the deep tissues including the metatarsal shaft, which was resected back with a rongeur. Bleeding was excellent. Dimensions of the wound are 8 x 4 x 2 cm. Excisional debridement of the wound, subcutaneous tissue down to bone was performed. Because of the bleeding, as mentioned, the wound was packed and wound VAC will be placed tomorrow. ESTIMATED BLOOD LOSS: 50 mL. ANNETTE THOMPSON MD DR: CESAR/iván JOB#: [id number] / [id number]
[2018-06-20] MEDS: MULTIVITAMIN with MINERAL TABLET. PO SCH (10:43)
[2018-06-20] MEDS: LACTOBACILLUS RHAMNOSUS GG 1 CAPSULE. PO SCH ×2 (10:43→22:25)
[2018-06-20] MEDS: GLIMEPIRIDE 2 MG TABLET. PO SCH (10:43)
[2018-06-20] MEDS: ASPIRIN 325 MG TABLET PO SCH (10:44)
[2018-06-20] MEDS: amLODIPine BESYLATE 5 MG TABLET PO SCH (10:44)
[2018-06-20 11:00] VITALS: BP 153/69
--- NOTE | 2018-06-20 11:31 | NUR ---
SS following up with discharge planning. Pt accepted at [facility] for half-way and rehabilitation. SS phoned and faxed clinical updates to [facility], ; fax [phone]. SS will await discharge orders and will proceed accordingly with discharge planning.
--- NOTE | 2018-06-20 11:48 | PDOC ---
SUBJECTIVE ROS No complaints OBJECTIVE Vital Signs Vital Signs Date Time Temp Pulse Resp B/P (MAP) Pulse Ox O2 Delivery O2 Flow Rate FiO2 06/20/18 10:44 87 153/69 06/20/18 10:06 Room Air 06/20/18 09:59 97.6 16 96 97.6 06/20/18 09:29 10 I & 0 Intake and Output 06/20/18 06:59 Intake Total 1360 ml Output Total 950 ml Balance 410 ml Intake Oral 1360 ml Output Urine Total 950 ml # Voids 1 # Bowel Movements 3 PHYSICAL EXAM Physical Exam GENERAL: Propped up in bed, alert, NAD HEENT: Normal conjunctivae. Oral cavity: Pharynx pink and moist. LUNGS: Clear to auscultation. HEART: S1, S2. ABDOMEN: Nondistended, soft and nontender with bowel sounds present. EXTREMITIES: RLE edema, incisions well-approx. wound vac to right groin and right foot areas SKIN: Warm without rash. NEUROLOGIC: Alert, responds appropriately DIAGNOSIS/ASSESSMENT Assessment & Plan IFTIKHAR- ATN- multifactorial Improving down to 1.8 Continue to hold Diuretics, Cozaar and Celebrex DC IVF if Good PO intake Hypokalemia - normal K CKD stage 3 S/P RIGHT FEM-PERONEAL BYPASS S/P TOE AMP DM II HTN PAD ANEMIA- Hg stable COMMENT/RELEVANT DATA Meds Current Medications Medications (Trade) Dose Ordered Sig/Svetlana Start Time Stop Time Status Last Admin Dose Admin Amlodipine Besylate (Norvasc) 2.5 mg DAILY 06/18/18 15:00 06/20/18 10:44 2.5 MG Aspirin (Kaley Aspirin) 325 mg DAILY 06/11/18 09:00 06/20/18 10:44 325 MG Atorvastatin Calcium (Lipitor) 40 mg HS 06/10/18 21:00 06/19/18 22:15 40 MG Bupivacaine HCl/ Epinephrine Bitart (Sensorcaine-Epi 0.25%-1:909080 Mpf) 30 ml STK-MED ONCE 06/15/18 07:06 06/15/18 08:07 DC 06/15/18 08:08 8 ML Cefazolin Sodium 1 gm/Sodium Chloride 500 ml @ 500 mls/hr ONCE ONCE 06/15/18 06:00 06/15/18 06:59 DC 06/15/18 08:08 Celecoxib (CeleBREX) 200 mg DAILY 06/11/18 09:00 06/18/18 11:17 DC 06/18/18 08:16 200 MG Cellulose (Surgicel Fibrillar 1x2) 1 each STK-MED ONCE 06/15/18 05:57 06/15/18 06:57 DC 06/15/18 10:32 1 EACH Daptomycin 500 mg/ Sodium Chloride 50 ml @ 100 mls/hr Q24H 06/12/18 16:00 06/17/18 08:26 DC 06/16/18 16:37 100 MLS/HR Daptomycin 540 mg/ Sodium Chloride 50 ml @ 100 mls/hr Q24H 06/12/18 14:00 06/12/18 14:00 DC Dexamethasone Sodium Phosphate (Decadron) 20 mg STK-MED ONCE 06/20/18 07:49 06/20/18 07:50 DC Diphenhydramine HCl (Benadryl) 25 mg PRN Q6HRS PRN 06/15/18 12:15 Docusate Sodium (Colace) 100 mg PRN BID PRN 06/15/18 12:15 Ephedrine Sulfate (Akovaz) 50 mg STK-MED ONCE 06/20/18 08:43 06/20/18 08:44 DC Fentanyl Citrate (Fentanyl 2ml Vial) 100 mcg STK-MED ONCE 06/20/18 07:49 06/20/18 07:50 DC Furosemide (Lasix) 40 mg DAILY 06/11/18 09:00 06/18/18 11:17 DC 06/18/18 08:16 40 MG Glimepiride (Amaryl) 4 mg DAILY 06/11/18 09:00 06/20/18 10:43 4 MG Glycopyrrolate (Robinul) 1 mg STK-MED ONCE 06/15/18 10:52 06/15/18 10:53 DC Heparin Sodium (Porcine) (Heparin Sodium) 10,000 unit STK-MED ONCE 06/14/18 14:11 06/14/18 14:13 DC Heparin Sodium (Porcine) 5000 unit/Sodium Chloride 505 ml @ 505 mls/hr ONCE ONCE 06/15/18 06:00 06/15/18 06:59 DC 06/15/18 08:08 Heparin Sodium/ Sodium Chloride (HEPARIN for ARTERIAL LINE FLUSH) 1,000 unit 1X ONCE 06/14/18 14:15 06/14/18 14:27 DC 06/14/18 14:51 1,000 UNIT Hydralazine HCl (Apresoline Inj) 5 mg PRN Q4HRS PRN 06/15/18 12:15 06/18/18 04:00 5 MG Hydrochlorothiazide (Microzide) 12.5 mg DAILY 06/11/18 09:00 06/18/18 11:17 DC 06/18/18 08:16 12.5 MG Hydromorphone HCl (Dilaudid) 0.5 mg PRN Q10MIN PRN 06/20/18 07:00 06/20/18 20:00 Info (CONTRAST GIVEN -- Rx MONITORING) 1 each PRN DAILY PRN 06/14/18 14:30 06/16/18 14:29 DC Info (Non-Icu Electrolyte Protocol) 1 ea DAILY 06/16/18 09:00 06/19/18 09:00 1 EA Insulin Human Lispro (HumaLOG) 5 units 1X ONCE 06/12/18 21:30 06/12/18 22:32 DC 06/12/18 23:19 5 UNITS Iodixanol (Visipaque 320) 100 ml 1X ONCE 06/14/18 14:15 06/14/18 14:27 DC 06/14/18 14:52 54 ML Iohexol (Omnipaque 300 Mg/ml) 100 ml STK-MED ONCE 06/15/18 05:57 06/15/18 06:57 DC 06/15/18 08:08 50 ML Labetalol HCl (Normodyne Iv Push) 10 mg PRN Q2HR PRN 06/15/18 12:15 Lactobacillus Rhamnosus (Culturelle) 1 cap BID 06/12/18 21:00 06/20/18 10:43 1 CAP Lidocaine HCl 20 ml STK-MED ONCE 06/20/18 07:21 06/20/18 08:21 DC Lidocaine HCl (Lidocaine 1% 20ml Vial) 20 ml 1X ONCE 06/14/18 15:00 06/14/18 15:01 DC 06/14/18 14:54 20 ML Lidocaine HCl (Lidocaine Pf 2% Vial) 5 ml STK-MED ONCE 06/20/18 07:49 06/20/18 07:50 DC Lidocaine HCl (Xylocaine-Mpf 1% 2ml Vial) 2 ml PRN 1X PRN 06/20/18 07:00 06/20/18 20:00 Losartan Potassium (Cozaar) 100 mg DAILY 06/11/18 09:00 06/18/18 11:17 DC 06/18/18 08:17 100 MG Meropenem 500 mg/ Sodium Chloride 50 ml @ 100 mls/hr Q8HRS 06/16/18 12:00 06/20/18 08:30 100 MLS/HR Metformin HCl (Glucophage) 500 mg BIDWMEALS 06/10/18 17:30 06/18/18 12:00 DC 06/18/18 08:16 500 MG Midazolam HCl (Versed) 5 mg 1X ONCE 06/14/18 14:15 06/14/18 14:27 DC 06/14/18 14:53 1 MG Morphine Sulfate (Morphine Sulfate) 1 mg PRN Q10MIN PRN 06/20/18 07:00 06/20/18 20:00 Multivitamins (Thera M Plus) 1 tab DAILY 06/13/18 10:00 06/20/18 10:43 1 TAB Naloxone HCl (Narcan) 0.1 mg PRN Q2MIN PRN 06/15/18 12:15 Neostigmine Methylsulfate (Bloxiverz) 10 mg STK-MED ONCE 06/15/18 10:52 06/15/18 10:53 DC Nicotine (Nicoderm Cq 21mg) 1 patch PRN DAILY PRN 06/10/18 18:45 Non-Formulary Medication (Empagliflozin (Jardiance)) 25 mg DAILY 06/11/18 09:00 06/13/18 07:26 DC Non-Formulary Medication (Valsartan/ Hydrochlorothiazide (Diovan Hct 160-12.5 Mg Tab)) 1 each DAILY 06/11/18 09:00 UNV Ondansetron HCl (Zofran) 4 mg STK-MED ONCE 06/20/18 07:49 06/20/18 07:50 DC Oxycodone HCl (Roxicodone) 5 mg PRN Q3HRS PRN 06/15/18 12:15 Oxycodone/ Acetaminophen (Percocet 5/325) 2 tab PRN Q4HRS PRN 06/15/18 12:15 Phenylephrine HCl (Bobby-Synephrine Inj) 10 mg STK-MED ONCE 06/20/18 09:01 06/20/18 09:02 DC Piperacillin Sod/ Tazobactam Sod 3.375 gm/Sodium Chloride 50 ml @ 100 mls/hr Q6HRS 06/10/18 17:30 06/16/18 11:20 DC 06/16/18 05:27 100 MLS/HR Potassium Chloride (Klor-Con) 40 meq 1X ONCE 06/18/18 12:00 06/18/18 12:01 DC 06/18/18 12:25 40 MEQ Prochlorperazine Edisylate (Compazine) 5 mg PACU PRN PRN 06/20/18 07:00 06/20/18 20:00 Propofol 20 ml @ As Directed STK-MED ONCE 06/20/18 07:49 06/20/18 07:50 DC Protamine Sulfate (Protamine) 50 mg STK-MED ONCE 06/15/18 10:31 06/15/18 10:33 DC Ringer's Solution 1,000 ml @ 100 mls/hr Q10H 06/20/18 07:00 06/20/18 18:59 Rocuronium Hunters (Zemuron) 50 mg STK-MED ONCE 06/15/18 08:48 06/15/18 08:49 DC Sevoflurane (Ultane) 60 ml STK-MED ONCE 06/20/18 07:48 06/20/18 07:49 DC Silver Sulfadiazine (Silvadene) 25 maricel STK-MED ONCE 06/20/18 07:21 06/20/18 08:21 DC Sodium Chloride 1,000 ml @ 100 mls/hr Q10H 06/15/18 13:00 Cancel Sodium Chloride (Normal Saline Flush) 3 ml QSHIFT PRN 06/15/18 12:15 Vancomycin HCl (Vanco Per Pharmacy) 1 each PRN DAILY PRN 06/10/18 16:45 06/12/18 13:51 DC 06/12/18 10:52 1 EACH Vancomycin HCl (Vancomycin Trough Level) 1 each 1X ONCE 06/12/18 17:30 06/12/18 17:31 Cancel Vancomycin HCl 1.5 gm/Sodium Chloride 500 ml @ 250 mls/hr Q24H 06/11/18 18:00 06/12/18 13:51 DC 06/11/18 18:03 250 MLS/HR Vancomycin HCl 2 gm/Sodium Chloride 500 ml @ 250 mls/hr 1X ONCE 06/10/18 17:30 06/10/18 19:29 DC 06/10/18 18:12 250 MLS/HR Zolpidem Tartrate (Ambien) 5 mg PRN QHS PRN 06/15/18 12:15 Lab Laboratory Tests Test 06/19/18 16:56 06/19/18 20:40 06/20/18 03:20 06/20/18 07:27 Glucose (Fingerstick) 169 mg/dL (70-99) 213 mg/dL (70-99) 147 mg/dL (70-99) Sodium Level 141 mmol/L (136-145) Potassium Level 3.7 mmol/L (3.5-5.1) Chloride Level 108 mmol/L (98-107) Carbon Dioxide Level 23 mmol/L (21-32) Anion Gap 10 (6-14) Blood Urea Nitrogen 36 mg/dL (8-26) Creatinine 1.8 mg/dL (0.7-1.3) Estimated GFR (Cockcroft-Gault) 36.6 Glucose Level 173 mg/dL (70-99) Calcium Level 8.2 mg/dL (8.5-10.1) Phosphorus Level 3.3 mg/dL (2.6-4.7) Magnesium Level 2.1 mg/dL (1.8-2.4) Test 06/20/18 09:34 Glucose (Fingerstick) 145 mg/dL (70-99) Results All relevant outside records, renal labs, imaging studies, telemetry/EKG's were reviewed. DONTRELL ARAGON MD Jun 20, 2018 11:48
--- NOTE | 2018-06-20 11:57 | PDOC ---
Infectious Disease Note Subjective Subjective feeling good, had debridement done ROS ROS no n/v/d/ Vital Sign Vital Signs Vital Signs Date Time Temp Pulse Resp B/P (MAP) Pulse Ox O2 Delivery O2 Flow Rate FiO2 06/20/18 11:00 97.5 85 16 153/69 (97) 96 Room Air 97.5 06/20/18 09:29 10 Physical Exam PHYSICAL EXAM GENERAL: Propped up in bed, alert, NAD HEENT: Normal conjunctivae. Oral cavity: Pharynx pink and moist. LUNGS: Clear to auscultation. HEART: S1, S2. ABDOMEN: Nondistended, soft and nontender with bowel sounds present. EXTREMITIES: RLE edema, incisions well-approx. wound vac to right groin and right foot areas SKIN: Warm without rash. NEUROLOGIC: Alert, responds appropriately PIV - ok Labs Lab Laboratory Tests Test 06/19/18 16:56 06/19/18 20:40 06/20/18 03:20 06/20/18 07:27 Glucose (Fingerstick) 169 mg/dL (70-99) 213 mg/dL (70-99) 147 mg/dL (70-99) Sodium Level 141 mmol/L (136-145) Potassium Level 3.7 mmol/L (3.5-5.1) Chloride Level 108 mmol/L (98-107) Carbon Dioxide Level 23 mmol/L (21-32) Anion Gap 10 (6-14) Blood Urea Nitrogen 36 mg/dL (8-26) Creatinine 1.8 mg/dL (0.7-1.3) Estimated GFR (Cockcroft-Gault) 36.6 Glucose Level 173 mg/dL (70-99) Calcium Level 8.2 mg/dL (8.5-10.1) Phosphorus Level 3.3 mg/dL (2.6-4.7) Magnesium Level 2.1 mg/dL (1.8-2.4) Test 06/20/18 09:34 06/20/18 11:49 Glucose (Fingerstick) 145 mg/dL (70-99) 275 mg/dL (70-99) Micro ANAEROBIC-AEROBIC CULTURE Preliminary Preliminary report ANAEROBIC RES 1 Preliminary Comment Holding for possible anaerobes. AEROBIC CULT Preliminary Preliminary report AEROBIC RES 1 Preliminary Enterobacter cloacae 4+ AEROBIC RES 2 Preliminary Gram negative rods 4+ AEROBIC RES 3 Preliminary Mixed skin berry 2+ ANTIMICROBIAL SUSCEPTIBILITY Preliminary Comment S = Susceptible; I = Intermediate; R = Resistant P = Positive; N = Negative MICS are expressed in micrograms per mL Antibiotic RSLT#1 RSLT#2 RSLT#3 RSLT#4 Amoxicillin/Clavulanic Acid R>=32 Cefazolin R>=64 Cefepime S<=0.12 Cefuroxime R =R CONTINUED ON NEXT PAGE RUN DATE: 06/16/18 PAGE 2 RUN TIME: 1530 [facility] [address] [place] [address] Wilfredo Cotto M.D., [place] Operator SPEC: [id number] PATIENT: EVONNE DRUMMOND [id number] ( Continued) Procedure Result ANTIMICROBIAL SUSCEPTIBILITY Preliminary (continued) Ciprofloxacin S<=0.25 Ertapenem S<=0.12 Gentamicin S<=1 Imipenem S<=0.25 Levofloxacin S<=0.12 Meropenem S<=0.25 Tetracycline S =2 Tobramycin S<=1 Trimethoprim/Sulfa S<=20 GRAM STAIN Final Final report GRAM STAIN RES 1 Final Comment No white blood cells seen. GRAM STAIN RES 2 Final Gram positive cocci Rare seen GRAM STAIN RES 3 Final Comment Rare gram negative rods. Performed at: DA - [facility] [place] [id number] [facility] [address], [place], [place] [id number] [employer] Operator: RANDY Aragon MD, Phone: [phone] Objective Assessment Diabetic ulcer right foot with cellulitis, s/p I and D, excisional, skin and subcutaneous tissue by Dr. North, 06/12, intra-op cultures pending s/p Leg bypass and open toe amputation PAD Leukocytosis - post op and s/p Dexameth Diabetes with peripheral neuropathy Renal insufficiency - better Tobacco dependency HLD HTN COPD IFTIKHAR Plan Plan of Care Continue meropenem f/u cultures Local wound care Supportive care ADRIANO HERNANDEZ MD Jun 20, 2018 11:57
[2018-06-20] MEDS: oxyCODONE/APAP 5/325 1 TAB TABLET PO PRN (12:37)
--- NOTE | 2018-06-20 13:30 | NUR ---
PICC Pre-Insertion Note Allergies and reactions NKDA INR 1.3 BUN 36 Cr 1.8 Platelets 311 Blood culture done n/a blood culture results Order Verified yes Consent signed yes Previous PICC placement no Past Medical/Surgical history and current diagnosis reviewed yes Patient Medical /Surgical History Related to PICC line placement Diabetes History of acute/chronic renal failure Infectious Disease consult Special considerations for PICC line placement None PICC placement indication half-way antibiotic usage, name of PICC Nurse Kari Duran RN Addendum: 06/20/18 at 1412 by [facility] DURAN RN Amended: Links added.
--- NOTE | 2018-06-20 14:00 | NUR ---
PICC Insertion Note- Procedure: Following complete explanation of the PICC procedure including the indications, risks, and potential complications, informed consent was obtained. The possibility for infection was discussed along with signs, symptoms, and prevention. All the questions were answered. Written and verbal patient education was provided. Hand hygiene performed. Standardized central line checklist was utilized. The patient was placed in the supine position, the arm was prepped with chlorhexidine and patient draped with maximum sterile barrier. 2 mL 1% lidocaine was infiltrated into the skin to provide local anesthesia. A thorough assessment of right upper extremity completed. Using real-time ultrasound guidance and standardized micro puncture set, the Basilic vein was punctured and a peel away sheath was placed using the modified Seldinger technique. A tip location device was used to ensure adequate catheter placement. The catheter was secured using a securement device and an antimicrobial patch was applied directly on the insertion site followed by a transparent dressing. All ports withdraw blood and flush without resistance. Patient tolerated the procedure without apparent complication(s). Single Lumen Power PICC placement successful and uncomplicated. Placement verified by EKG tip confirmation system and/or chest x-ray. Tip located in the CAJ/SVC. Complications: none Catheter trimmed at 44cm with 2cm visible at insertion site.
--- NOTE | 2018-06-20 14:03 | PN ---
DATE: 06/20/2018 LOCATION: He is in room 203. SUBJECTIVE: The patient seen in the holding area prior to surgery. Has no major complaints, is ready to get to the end of this and be able to get home at some point. OBJECTIVE: VITAL SIGNS: Stable. He is afebrile. GENERAL: Awake and alert. CHEST: Clear. HEART: Regular. ABDOMEN: Benign. EXTREMITIES: Wound VAC remains on the right foot. LABORATORY DATA: Creatinine is down to 1.8 this morning. Sugars were decent. Final cultures from 06/15/2018 on the foot show Enterobacter, ongoing IV antibiotics are in place. IMPRESSION: 1. Right diabetic foot infection with peripheral arterial disease, status post revascularization. 2. Planned debridement of right foot today surgically. 3. Acute renal failure, improving. 4. Diabetes. PLAN: Continue present supportive care, help of all consultants appreciated. MERLYN CORDOBA MD DR: NATALIA/iván JOB#: [id number] / [id number]
[2018-06-20 15:10] VITALS: BP 130/59
[2018-06-20] MEDS ORDERED: DEXTROSE 50% 25 GM / 50ML DISP.SYRIN. IV PRN (17:30)
[2018-06-20] MEDS ORDERED: INSULIN LISPRO 300 UNITS/3 ML INSULN.PEN. SQ SCH (17:30)
[2018-06-20 19:00] VITALS: BP 137/65
[2018-06-20] MEDS: ATORVASTATIN CALCIUM 40 MG TABLET. PO SCH (22:25)
[2018-06-20] MEDS: oxyCODONE IR 5 MG TABLET PO PRN (22:25)
[2018-06-20 23:00] VITALS: BP 128/61
[2018-06-20] MEDS ORDERED: INSULIN LISPRO 300 UNITS/3 ML INSULN.PEN. SQ ONE (23:00)
[2018-06-21 03:00] VITALS: BP 125/61
[2018-06-21] MEDS: MEROPENEM 500 MG in IV NORMAL SALINE 50ML 50 ML IV SCH ×3 (06:10→21:45)
[2018-06-21 07:00] VITALS: BP 136/63
[2018-06-21] MEDS: LACTOBACILLUS RHAMNOSUS GG 1 CAPSULE. PO SCH ×2 (08:44→21:43)
[2018-06-21] MEDS: ASPIRIN 325 MG TABLET PO SCH (08:44)
[2018-06-21] MEDS: MULTIVITAMIN with MINERAL TABLET. PO SCH (08:44)
[2018-06-21] MEDS: GLIMEPIRIDE 2 MG TABLET. PO SCH (08:45)
[2018-06-21] MEDS: amLODIPine BESYLATE 5 MG TABLET PO SCH (08:45)
[2018-06-21] MEDS: INSULIN LISPRO 300 UNITS/3 ML INSULN.PEN. SQ SCH ×4 (08:54→21:00)
[2018-06-21] MEDS: ELECTROLYTE (NON-ICU) PROTOCOL MC SCH (08:59)
--- NOTE | 2018-06-21 09:06 | PN ---
DATE: 06/21/2018 LOCATION: Room 203. SUBJECTIVE: The patient is awake and alert. Denies pain. OBJECTIVE: VITAL SIGNS: Stable. He is afebrile. GENERAL: The patient is eating breakfast. CHEST: Clear. HEART: Regular. ABDOMEN: Benign. EXTREMITIES: Right foot is dressed and warm. Surgery note is appreciated. Sugars have been running high, off metformin and we will need to add meds for the same. He is getting sliding scale insulin currently. Case management was called about possible discharge today and I have instructed them that I am going to need to know what ID wants as far as ongoing antibiotics and for how long as well as vascular surgery's approval for discharge along with weightbearing restrictions, etc. prior to considering any kind of discharge. IMPRESSION: 1. Status post amputation of right great toe. 2. PAD with femoral peroneal bypass surgery, right leg. 3. Diabetic foot infection. 4. Acute renal failure, improving with last creatinine as of yesterday down to 1.8. PLAN: Await opinions regarding discharge. Again we will add another oral anti-hypoglycemic today. MERLYN CORDOBA MD DR: NATALIA/iván JOB#: [id number] / [id number]
--- NOTE | 2018-06-21 09:25 | PDOC ---
Infectious Disease Note Subjective Subjective feeling good, ROS ROS no n/v/d/sob Vital Sign Vital Signs Vital Signs Date Time Temp Pulse Resp B/P (MAP) Pulse Ox O2 Delivery O2 Flow Rate FiO2 06/21/18 08:45 81 136/63 06/21/18 07:52 Room Air 06/21/18 07:00 97.5 17 96 97.5 06/20/18 09:29 10 Physical Exam PHYSICAL EXAM GENERAL: Propped up in bed, alert, NAD HEENT: Normal conjunctivae. Oral cavity: Pharynx pink and moist. LUNGS: Clear to auscultation. HEART: S1, S2. ABDOMEN: Nondistended, soft and nontender with bowel sounds present. EXTREMITIES: RLE edema, incisions well-approx. wound vac to right groin and right foot areas SKIN: Warm without rash. NEUROLOGIC: Alert, responds appropriately PIV - ok Labs Lab Laboratory Tests Test 06/20/18 09:34 06/20/18 11:49 06/20/18 16:29 06/20/18 20:45 Glucose (Fingerstick) 145 mg/dL (70-99) 275 mg/dL (70-99) 309 mg/dL (70-99) 312 mg/dL (70-99) Test 06/21/18 07:53 Glucose (Fingerstick) 181 mg/dL (70-99) Micro AEROBIC RES 3 Preliminary Mixed skin berry 2+ ANTIMICROBIAL SUSCEPTIBILITY Preliminary Comment S = Susceptible; I = Intermediate; R = Resistant P = Positive; N = Negative MICS are expressed in micrograms per mL Antibiotic RSLT#1 RSLT#2 RSLT#3 RSLT#4 Amoxicillin/Clavulanic Acid R>=32 Cefazolin R>=64 Cefepime S<=0.12 Cefuroxime R =R CONTINUED ON NEXT PAGE RUN DATE: 06/16/18 PAGE 2 RUN TIME: 1530 [facility] [address] [place] [address] Wilfredo Cotto M.D., Attraction Worker SPEC: [id number] PATIENT: EVONNE DRUMMOND [id number] ( Continued) Procedure Result ANTIMICROBIAL SUSCEPTIBILITY Preliminary (continued) Ciprofloxacin S<=0.25 Ertapenem S<=0.12 Gentamicin S<=1 Imipenem S<=0.25 Levofloxacin S<=0.12 Meropenem S<=0.25 Tetracycline S =2 Tobramycin S<=1 Trimethoprim/Sulfa S<=20 GRAM STAIN Final Final report GRAM STAIN RES 1 Final Comment No white blood cells seen. GRAM STAIN RES 2 Final Gram positive cocci Rare seen GRAM STAIN RES 3 Final Comment Rare gram negative rods. Performed at: - [facility], [place], [place] [id number] Consulting Sales Manager: RANDY Aragon MD, Phone: [phone] Objective Assessment Diabetic ulcer right foot with cellulitis, s/p I and D, excisional, skin and subcutaneous tissue by Dr. North, 06/12, intra-op cultures pending s/p Leg bypass and open toe amputation PAD Leukocytosis - post op and s/p Dexameth Diabetes with peripheral neuropathy Renal insufficiency - better Tobacco dependency HLD HTN COPD IFTIKHAR Plan Plan of Care Continue meropenem f/u cultures Local wound care Supportive care d/c on iv Invanz or meropenem wkly cbc, bun/cr, sed rate f/u with us in 2 wks ADRIANO HERNANDEZ MD Jun 21, 2018 09:25
[2018-06-21] MEDS: oxyCODONE IR 5 MG TABLET PO PRN ×2 (09:34→15:25)
--- NOTE | 2018-06-21 10:20 | PDOC ---
Provider Note Provider Note Vascular S: Patient seen and examined in bed. No complaints. O: Awake and alert VSS Right leg prevena vac in place. Incision medial thigh and calf intact. Palpable graft pulse, foot warm. Dressing removed. wound bed clean. Wound vac applied. 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 Debridement site appears healthy. Continue wound vac therapy. Continue ASA Cr. 1.8 Continue antibiotics per infectious disease. May ambulate with front off-loading shoe. SS for discharge planning possibly 1-2 days if medically stable. Follow up as scheduled with Dr. An Follow up in [facility] per their directions. CHALINO DE ANDA APRN Jun 21, 2018 10:20
[2018-06-21 11:00] VITALS: BP 146/67
--- NOTE | 2018-06-21 11:45 | PDOC ---
SUBJECTIVE ROS No complaints OBJECTIVE Vital Signs Vital Signs Date Time Temp Pulse Resp B/P (MAP) Pulse Ox O2 Delivery O2 Flow Rate FiO2 06/21/18 09:34 Room Air 06/21/18 08:45 81 136/63 06/21/18 07:00 97.5 17 96 97.5 06/20/18 09:29 10 I & 0 Intake and Output 06/21/18 07:00 Intake Total 1230 ml Output Total 1275 ml Balance -45 ml Intake Oral 990 ml IV Total 240 ml Output Urine Total 1250 ml Estimated Blood Loss 25 ml PHYSICAL EXAM Physical Exam GENERAL: Propped up in bed, alert, NAD HEENT: Normal conjunctivae. Oral cavity: Pharynx pink and moist. LUNGS: Clear to auscultation. HEART: S1, S2. ABDOMEN: Nondistended, soft and nontender with bowel sounds present. EXTREMITIES: RLE edema, incisions well-approx. wound vac to right groin and right foot areas SKIN: Warm without rash. NEUROLOGIC: Alert, responds appropriately DIAGNOSIS/ASSESSMENT Assessment & Plan IFTIKHAR- ATN- multifactorial Improving down to 1.8 Continue to hold Diuretics, Cozaar and Celebrex No labs Ordered for this am Check BMP in am Hypokalemia - normal K yest No labs today CKD stage 3 S/P RIGHT FEM-PERONEAL BYPASS S/P TOE AMP DM II HTN PAD ANEMIA- Hg stable COMMENT/RELEVANT DATA Meds Current Medications Medications (Trade) Dose Ordered Sig/Svetlana Start Time Stop Time Status Last Admin Dose Admin Amlodipine Besylate (Norvasc) 2.5 mg DAILY 06/18/18 15:00 06/21/18 08:45 2.5 MG Aspirin (Kaley Aspirin) 325 mg DAILY 06/11/18 09:00 06/21/18 08:44 325 MG Atorvastatin Calcium (Lipitor) 40 mg HS 06/10/18 21:00 06/20/18 22:25 40 MG Bupivacaine HCl/ Epinephrine Bitart (Sensorcaine-Epi 0.25%-1:[id number] Mpf) 30 ml STK-MED ONCE 06/15/18 07:06 06/15/18 08:07 DC 06/15/18 08:08 8 ML Cefazolin Sodium 1 gm/Sodium Chloride 500 ml @ 500 mls/hr ONCE ONCE 06/15/18 06:00 06/15/18 06:59 DC 06/15/18 08:08 Celecoxib (CeleBREX) 200 mg DAILY 06/11/18 09:00 06/18/18 11:17 DC 06/18/18 08:16 200 MG Cellulose (Surgicel Fibrillar 1x2) 1 each STK-MED ONCE 06/15/18 05:57 06/15/18 06:57 DC 06/15/18 10:32 1 EACH Daptomycin 500 mg/ Sodium Chloride 50 ml @ 100 mls/hr Q24H 06/12/18 16:00 06/17/18 08:26 DC 06/16/18 16:37 100 MLS/HR Daptomycin 540 mg/ Sodium Chloride 50 ml @ 100 mls/hr Q24H 06/12/18 14:00 06/12/18 14:00 DC Dexamethasone Sodium Phosphate (Decadron) 20 mg STK-MED ONCE 06/20/18 07:49 06/20/18 07:50 DC Dextrose (Dextrose 50%-Water Syringe) 12.5 gm PRN Q15MIN PRN 06/20/18 17:30 Diphenhydramine HCl (Benadryl) 25 mg PRN Q6HRS PRN 06/15/18 12:15 Docusate Sodium (Colace) 100 mg PRN BID PRN 06/15/18 12:15 Ephedrine Sulfate (Akovaz) 50 mg STK-MED ONCE 06/20/18 08:43 06/20/18 08:44 DC Fentanyl Citrate (Fentanyl 2ml Vial) 100 mcg STK-MED ONCE 06/20/18 07:49 06/20/18 07:50 DC Furosemide (Lasix) 40 mg DAILY 06/11/18 09:00 06/18/18 11:17 DC 06/18/18 08:16 40 MG Glimepiride (Amaryl) 4 mg DAILY 06/11/18 09:00 06/21/18 08:45 4 MG Glycopyrrolate (Robinul) 1 mg STK-MED ONCE 06/15/18 10:52 06/15/18 10:53 DC Heparin Sodium (Porcine) (Heparin Sodium) 10,000 unit STK-MED ONCE 06/14/18 14:11 06/14/18 14:13 DC Heparin Sodium (Porcine) 5000 unit/Sodium Chloride 505 ml @ 505 mls/hr ONCE ONCE 06/15/18 06:00 06/15/18 06:59 DC 06/15/18 08:08 Heparin Sodium/ Sodium Chloride (HEPARIN for ARTERIAL LINE FLUSH) 1,000 unit 1X ONCE 06/14/18 14:15 06/14/18 14:27 DC 06/14/18 14:51 1,000 UNIT Hydralazine HCl (Apresoline Inj) 5 mg PRN Q4HRS PRN 06/15/18 12:15 06/18/18 04:00 5 MG Hydrochlorothiazide (Microzide) 12.5 mg DAILY 06/11/18 09:00 06/18/18 11:17 DC 06/18/18 08:16 12.5 MG Hydromorphone HCl (Dilaudid) 0.5 mg PRN Q10MIN PRN 06/20/18 07:00 06/20/18 20:00 DC Info (CONTRAST GIVEN -- Rx MONITORING) 1 each PRN DAILY PRN 06/14/18 14:30 06/16/18 14:29 DC Info (Non-Icu Electrolyte Protocol) 1 ea DAILY 06/16/18 09:00 06/21/18 08:59 1 EA Insulin Human Lispro (HumaLOG) 5 units 1X ONCE 06/20/18 23:00 06/20/18 23:01 DC 06/20/18 22:34 5 UNITS Iodixanol (Visipaque 320) 100 ml 1X ONCE 06/14/18 14:15 06/14/18 14:27 DC 06/14/18 14:52 54 ML Iohexol (Omnipaque 300 Mg/ml) 100 ml STK-MED ONCE 06/15/18 05:57 06/15/18 06:57 DC 06/15/18 08:08 50 ML Labetalol HCl (Normodyne Iv Push) 10 mg PRN Q2HR PRN 06/15/18 12:15 Lactobacillus Rhamnosus (Culturelle) 1 cap BID 06/12/18 21:00 06/21/18 08:44 1 CAP Lidocaine HCl 20 ml STK-MED ONCE 06/20/18 07:21 06/20/18 08:21 DC Lidocaine HCl (Lidocaine 1% 20ml Vial) 20 ml 1X ONCE 06/14/18 15:00 06/14/18 15:01 DC 06/14/18 14:54 20 ML Lidocaine HCl (Lidocaine Pf 2% Vial) 5 ml STK-MED ONCE 06/20/18 07:49 06/20/18 07:50 DC Lidocaine HCl (Xylocaine-Mpf 1% 2ml Vial) 2 ml PRN 1X PRN 06/20/18 07:00 06/20/18 20:00 DC Losartan Potassium (Cozaar) 100 mg DAILY 06/11/18 09:00 06/18/18 11:17 DC 06/18/18 08:17 100 MG Meropenem 500 mg/ Sodium Chloride 50 ml @ 100 mls/hr Q8HRS 06/16/18 12:00 06/21/18 06:10 100 MLS/HR Metformin HCl (Glucophage) 500 mg BIDWMEALS 06/10/18 17:30 06/18/18 12:00 DC 06/18/18 08:16 500 MG Midazolam HCl (Versed) 5 mg 1X ONCE 06/14/18 14:15 06/14/18 14:27 DC 06/14/18 14:53 1 MG Morphine Sulfate (Morphine Sulfate) 1 mg PRN Q10MIN PRN 06/20/18 07:00 06/20/18 20:00 DC Multivitamins (Thera M Plus) 1 tab DAILY 06/13/18 10:00 06/21/18 08:44 1 TAB Naloxone HCl (Narcan) 0.1 mg PRN Q2MIN PRN 06/15/18 12:15 Neostigmine Methylsulfate (Bloxiverz) 10 mg STK-MED ONCE 06/15/18 10:52 06/15/18 10:53 DC Nicotine (Nicoderm Cq 21mg) 1 patch PRN DAILY PRN 06/10/18 18:45 Non-Formulary Medication (Empagliflozin (Jardiance)) 25 mg DAILY 06/11/18 09:00 06/13/18 07:26 DC Non-Formulary Medication (Valsartan/ Hydrochlorothiazide (Diovan Hct 160-12.5 Mg Tab)) 1 each DAILY 06/11/18 09:00 UNV Ondansetron HCl (Zofran) 4 mg STK-MED ONCE 06/20/18 07:49 06/20/18 07:50 DC Oxycodone HCl (Roxicodone) 5 mg PRN Q3HRS PRN 06/15/18 12:15 06/21/18 09:34 5 MG Oxycodone/ Acetaminophen (Percocet 5/325) 2 tab PRN Q4HRS PRN 06/15/18 12:15 Phenylephrine HCl (Bobby-Synephrine Inj) 10 mg STK-MED ONCE 06/20/18 09:01 06/20/18 09:02 DC Piperacillin Sod/ Tazobactam Sod 3.375 gm/Sodium Chloride 50 ml @ 100 mls/hr Q6HRS 06/10/18 17:30 06/16/18 11:20 DC 06/16/18 05:27 100 MLS/HR Potassium Chloride (Klor-Con) 40 meq 1X ONCE 06/18/18 12:00 06/18/18 12:01 DC 06/18/18 12:25 40 MEQ Prochlorperazine Edisylate (Compazine) 5 mg PACU PRN PRN 06/20/18 07:00 06/20/18 20:00 DC Propofol 20 ml @ As Directed STK-MED ONCE 06/20/18 07:49 06/20/18 07:50 DC Protamine Sulfate (Protamine) 50 mg STK-MED ONCE 06/15/18 10:31 06/15/18 10:33 DC Ringer's Solution 1,000 ml @ 100 mls/hr Q10H 06/20/18 07:00 06/20/18 17:06 DC Rocuronium [place] (Zemuron) 50 mg STK-MED ONCE 06/15/18 08:48 06/15/18 08:49 DC Sevoflurane (Ultane) 60 ml STK-MED ONCE 06/20/18 07:48 06/20/18 07:49 DC Silver Sulfadiazine (Silvadene) 25 maricel STK-MED ONCE 06/20/18 07:21 06/20/18 08:21 DC Sodium Chloride 1,000 ml @ 100 mls/hr Q10H 06/15/18 13:00 Cancel Sodium Chloride (Normal Saline Flush) 3 ml QSHIFT PRN 06/15/18 12:15 Vancomycin HCl (Vanco Per Pharmacy) 1 each PRN DAILY PRN 06/10/18 16:45 06/12/18 13:51 DC 06/12/18 10:52 1 EACH Vancomycin HCl (Vancomycin Trough Level) 1 each 1X ONCE 06/12/18 17:30 06/12/18 17:31 Cancel Vancomycin HCl 1.5 gm/Sodium Chloride 500 ml @ 250 mls/hr Q24H 06/11/18 18:00 06/12/18 13:51 DC 06/11/18 18:03 250 MLS/HR Vancomycin HCl 2 gm/Sodium Chloride 500 ml @ 250 mls/hr 1X ONCE 06/10/18 17:30 06/10/18 19:29 DC 06/10/18 18:12 250 MLS/HR Zolpidem Tartrate (Ambien) 5 mg PRN QHS PRN 06/15/18 12:15 Lab Laboratory Tests Test 06/20/18 11:49 06/20/18 16:29 06/20/18 20:45 06/21/18 07:53 Glucose (Fingerstick) 275 mg/dL (70-99) 309 mg/dL (70-99) 312 mg/dL (70-99) 181 mg/dL (70-99) Results All relevant outside records, renal labs, imaging studies, telemetry/EKG's were reviewed. DONTRELL ARAGON MD Jun 21, 2018 11:45
--- NOTE | 2018-06-21 13:11 | NUR ---
SS following up with discharge planning. SS received notification from case reviewer, Alla Emanuel, that she and Betito Reyes from wound care met with pt to discuss [facility] and pt is agreeable to [facility]. SS met with pt to verify information. As observed, pt held up a post it note to SS with the address to [facility] and stated that he was going there for longterm. Pt reported that he wants to longterm unit close to his home. SS notified case reviewer and pt's RN. SS will continue to follow for discharge planning.
[2018-06-21 15:00] VITALS: BP 148/67
[2018-06-21 19:35] VITALS: BP 115/59
[2018-06-21] MEDS: ATORVASTATIN CALCIUM 40 MG TABLET. PO SCH (21:43)
[2018-06-21 23:27] VITALS: BP 151/70
[2018-06-22 03:06] VITALS: BP 144/65
[2018-06-22] MEDS: MEROPENEM 500 MG in IV NORMAL SALINE 50ML 50 ML IV SCH ×3 (05:21→21:47)
[2018-06-22 06:18] LABS: CALCIUM 8.5 mg/dL (8.5-10.1); CREATININE 1.7 mg/dL (0.7-1.3); GFR 39.1
[2018-06-22] MEDS: oxyCODONE/APAP 5/325 1 TAB TABLET PO PRN (06:25)
[2018-06-22 07:00] VITALS: BP 141/63
[2018-06-22] MEDS: INSULIN LISPRO 300 UNITS/3 ML INSULN.PEN. SQ SCH ×4 (07:28→21:00)
[2018-06-22] MEDS: ELECTROLYTE (NON-ICU) PROTOCOL MC SCH (07:29)
[2018-06-22] MEDS ORDERED: Nicotine 21MG TD (08:15)
[2018-06-22] MEDS ORDERED: AMLO5TAB10 PO (08:15)
[2018-06-22] MEDS ORDERED: OXYC1TAB15 PO (08:15)
[2018-06-22] MEDS ORDERED: ZOLP5TAB PO (08:15)
[2018-06-22] MEDS ORDERED: MERO500V15 IV (08:16)
--- NOTE | 2018-06-22 08:20 | SNU/HH DC ---
DISCHARGE ORDERS DISCHARGE INFORMATION: DISCHARGE DATE: Jun 22, 2018 CONDITION ON DISCHARGE: Stable CODE STATUS: Code Status: Full [facility]: SNF STAY <30 DAYS: Yes HOSPICE: HOSPICE: No HOSPICE EVAL & TREAT: No LTAC: ADMIT TO LTAC: No POST DISCHARGE ORDERS: ACTIVITY ORDERS: Activity as tolerated WEIGHT BEARING STATUS: Other, see below (shoe per vascular surgery) DIET AFTER DISCHARGE: ADA WOUND/INCISION CARE: Other, see below (wound vac per wound care) CHECKS AFTER DISCHARGE: CHECKS AFTER DISCHARGE: Check blood press - daily, Check blood sugar, ac/hs TREATMENT/EQUIPMENT ORDERS: INFUSION EQUIPMENT NEEDED: PICC Line Physical Therapy For: Evalulation/Treatment Occupational Therapy For: Evaluation/Treatment DISCHARGE MEDICATIONS: Home Meds Active Scripts Meropenem (MEROPENEM) 500 Mg Vial, 500 MG IV Q8HRS for infection for 30 Days, # 90 EACH Prov:MERLYN CORDOBA MD 06/22/18 Zolpidem Tartrate (AMBIEN) 5 Mg Tablet, 5 MG PO PRN QHS PRN for INSOMNIA for 30 Days, #30 TAB Prov:MERLYN CORDOBA MD 06/22/18 Oxycodone/Apap 5-325 (PERCOCET 5-325 MG TABLET ) 1 Each Tablet, 1 TAB PO PRN Q4HRS PRN for MILD PAIN, 1ST CHOICE for 30 Days, #120 TAB Prov:MERLYN CORDOBA MD 06/22/18 Amlodipine Besylate (AMLODIPINE BESYLATE) 5 Mg Tablet, 2.5 MG PO DAILY for hypertension, #30 TAB Prov:MERLYN CORDOBA MD 06/22/18 [Nicotine 21MG] 1 PATCH PATCH No Conflict Check, 1 PATCH TD PRN DAILY PRN for SMOKING CESSATION for 30 Days Prov:MERLYN CORDOBA MD 06/22/18 Reported Medications Aspirin (ASPIRIN) 325 Mg Tablet, 325 MG PO DAILY for heart health, TAB 06/10/18 Atorvastatin Calcium (ATORVASTATIN CALCIUM) 40 Mg Tablet, 40 MG PO HS for FOR CHOLESTEROL, #30 TAB 0 Refills 06/10/18 Empagliflozin (Jardiance) 25 Mg Tablet, 25 MG PO DAILY for diabetes, TAB 06/10/18 Glimepiride (GLIMEPIRIDE) 4 Mg Tablet, 4 MG PO DAILY for diabetes, TAB 06/10/18 Discontinued Reported Medications Celecoxib (CELEBREX) 200 Mg Capsule, 200 MG PO DAILY for inflammation/pain for 30 Days, #30 CAP 0 Refills 06/10/18 Furosemide (FUROSEMIDE) 40 Mg Tablet, 40 MG PO DAILY for diuretic, TAB 06/10/18 Valsartan/Hydrochlorothiazide (DIOVAN HCT 160-12.5 MG TAB) 1 Each Tablet, 1 EACH PO DAILY for hypertension, TAB 06/10/18 Metformin Hcl (METFORMIN HCL) 500 Mg Tablet, 500 MG PO BIDWMEALS for ANTI- DIABETIC, TAB 0 Refills 06/10/18 MERLYN CORDOBA MD Jun 22, 2018 08:20
--- NOTE | 2018-06-22 08:21 | PDOC ---
GENERAL General: see discharge summary. VITAL SIGNS Vital Signs: Vital Signs Date Time Temp Pulse Resp B/P (MAP) Pulse Ox O2 Delivery O2 Flow Rate FiO2 06/22/18 07:59 Room Air 06/22/18 07:00 98.4 66 17 141/63 (89) 97 98.4 I & O I & O Intake and Output 06/22/18 07:00 Intake Total 1010 ml Output Total 300 ml Balance 710 ml Intake Oral 960 ml IV Total 50 ml Output Urine Total 300 ml # Voids 2 # Bowel Movements 1 ALLERGIES Allergies: Allergies Coded Allergies Type Severity Reaction Last Updated Verified No Known Drug Allergies 06/10/18 No MEDS Medications: Current Medications Medications (Trade) Dose Ordered Sig/Svetlana Start Time Stop Time Status Last Admin Dose Admin Amlodipine Besylate (Norvasc) 2.5 mg DAILY 06/18/18 15:00 06/21/18 08:45 2.5 MG Aspirin (Kaley Aspirin) 325 mg DAILY 06/11/18 09:00 06/21/18 08:44 325 MG Atorvastatin Calcium (Lipitor) 40 mg HS 06/10/18 21:00 06/21/18 21:43 40 MG Bupivacaine HCl/ Epinephrine Bitart (Sensorcaine-Epi 0.25%-1:003736 Mpf) 30 ml STK-MED ONCE 06/15/18 07:06 06/15/18 08:07 DC 06/15/18 08:08 8 ML Cefazolin Sodium 1 gm/Sodium Chloride 500 ml @ 500 mls/hr ONCE ONCE 06/15/18 06:00 06/15/18 06:59 DC 06/15/18 08:08 Celecoxib (CeleBREX) 200 mg DAILY 06/11/18 09:00 06/18/18 11:17 DC 06/18/18 08:16 200 MG Cellulose (Surgicel Fibrillar 1x2) 1 each STK-MED ONCE 06/15/18 05:57 06/15/18 06:57 DC 06/15/18 10:32 1 EACH Daptomycin 500 mg/ Sodium Chloride 50 ml @ 100 mls/hr Q24H 06/12/18 16:00 06/17/18 08:26 DC 06/16/18 16:37 100 MLS/HR Daptomycin 540 mg/ Sodium Chloride 50 ml @ 100 mls/hr Q24H 06/12/18 14:00 06/12/18 14:00 DC Dexamethasone Sodium Phosphate (Decadron) 20 mg STK-MED ONCE 06/20/18 07:49 06/20/18 07:50 DC Dextrose (Dextrose 50%-Water Syringe) 12.5 gm PRN Q15MIN PRN 06/20/18 17:30 Diphenhydramine HCl (Benadryl) 25 mg PRN Q6HRS PRN 06/15/18 12:15 Docusate Sodium (Colace) 100 mg PRN BID PRN 06/15/18 12:15 Ephedrine Sulfate (Akovaz) 50 mg STK-MED ONCE 06/20/18 08:43 06/20/18 08:44 DC Fentanyl Citrate (Fentanyl 2ml Vial) 100 mcg STK-MED ONCE 06/20/18 07:49 06/20/18 07:50 DC Furosemide (Lasix) 40 mg DAILY 06/11/18 09:00 06/18/18 11:17 DC 06/18/18 08:16 40 MG Glimepiride (Amaryl) 4 mg DAILY 06/11/18 09:00 06/21/18 08:45 4 MG Glycopyrrolate (Robinul) 1 mg STK-MED ONCE 06/15/18 10:52 06/15/18 10:53 DC Heparin Sodium (Porcine) (Heparin Sodium) 10,000 unit STK-MED ONCE 06/14/18 14:11 06/14/18 14:13 DC Heparin Sodium (Porcine) 5000 unit/Sodium Chloride 505 ml @ 505 mls/hr ONCE ONCE 06/15/18 06:00 06/15/18 06:59 DC 06/15/18 08:08 Heparin Sodium/ Sodium Chloride (HEPARIN for ARTERIAL LINE FLUSH) 1,000 unit 1X ONCE 06/14/18 14:15 06/14/18 14:27 DC 06/14/18 14:51 1,000 UNIT Hydralazine HCl (Apresoline Inj) 5 mg PRN Q4HRS PRN 06/15/18 12:15 06/18/18 04:00 5 MG Hydrochlorothiazide (Microzide) 12.5 mg DAILY 06/11/18 09:00 06/18/18 11:17 DC 06/18/18 08:16 12.5 MG Hydromorphone HCl (Dilaudid) 0.5 mg PRN Q10MIN PRN 06/20/18 07:00 06/20/18 20:00 DC Info (CONTRAST GIVEN -- Rx MONITORING) 1 each PRN DAILY PRN 06/14/18 14:30 06/16/18 14:29 DC Info (Non-Icu Electrolyte Protocol) 1 ea DAILY 06/16/18 09:00 06/22/18 07:29 1 EA Insulin Human Lispro (HumaLOG) 5 units 1X ONCE 06/20/18 23:00 06/20/18 23:01 DC 06/20/18 22:34 5 UNITS Iodixanol (Visipaque 320) 100 ml 1X ONCE 06/14/18 14:15 06/14/18 14:27 DC 06/14/18 14:52 54 ML Iohexol (Omnipaque 300 Mg/ml) 100 ml STK-MED ONCE 06/15/18 05:57 06/15/18 06:57 DC 06/15/18 08:08 50 ML Labetalol HCl (Normodyne Iv Push) 10 mg PRN Q2HR PRN 06/15/18 12:15 Lactobacillus Rhamnosus (Culturelle) 1 cap BID 06/12/18 21:00 06/21/18 21:43 1 CAP Lidocaine HCl 20 ml STK-MED ONCE 06/20/18 07:21 06/20/18 08:21 DC Lidocaine HCl (Lidocaine 1% 20ml Vial) 20 ml 1X ONCE 06/14/18 15:00 06/14/18 15:01 DC 06/14/18 14:54 20 ML Lidocaine HCl (Lidocaine Pf 2% Vial) 5 ml STK-MED ONCE 06/20/18 07:49 06/20/18 07:50 DC Lidocaine HCl (Xylocaine-Mpf 1% 2ml Vial) 2 ml PRN 1X PRN 06/20/18 07:00 06/20/18 20:00 DC Losartan Potassium (Cozaar) 100 mg DAILY 06/11/18 09:00 06/18/18 11:17 DC 06/18/18 08:17 100 MG Meropenem 500 mg/ Sodium Chloride 50 ml @ 100 mls/hr Q8HRS 06/16/18 12:00 06/22/18 05:21 100 MLS/HR Metformin HCl (Glucophage) 500 mg BIDWMEALS 06/10/18 17:30 06/18/18 12:00 DC 06/18/18 08:16 500 MG Midazolam HCl (Versed) 5 mg 1X ONCE 06/14/18 14:15 06/14/18 14:27 DC 06/14/18 14:53 1 MG Morphine Sulfate (Morphine Sulfate) 1 mg PRN Q10MIN PRN 06/20/18 07:00 06/20/18 20:00 DC Multivitamins (Thera M Plus) 1 tab DAILY 06/13/18 10:00 06/21/18 08:44 1 TAB Naloxone HCl (Narcan) 0.1 mg PRN Q2MIN PRN 06/15/18 12:15 Neostigmine Methylsulfate (Bloxiverz) 10 mg STK-MED ONCE 06/15/18 10:52 06/15/18 10:53 DC Nicotine (Nicoderm Cq 21mg) 1 patch PRN DAILY PRN 06/10/18 18:45 Non-Formulary Medication (Empagliflozin (Jardiance)) 25 mg DAILY 06/11/18 09:00 06/13/18 07:26 DC Non-Formulary Medication (Valsartan/ Hydrochlorothiazide (Diovan Hct 160-12.5 Mg Tab)) 1 each DAILY 06/11/18 09:00 UNV Ondansetron HCl (Zofran) 4 mg STK-MED ONCE 06/20/18 07:49 06/20/18 07:50 DC Oxycodone HCl (Roxicodone) 5 mg PRN Q3HRS PRN 06/15/18 12:15 06/21/18 15:25 5 MG Oxycodone/ Acetaminophen (Percocet 5/325) 2 tab PRN Q4HRS PRN 06/15/18 12:15 Phenylephrine HCl (Bobby-Synephrine Inj) 10 mg STK-MED ONCE 06/20/18 09:01 06/20/18 09:02 DC Piperacillin Sod/ Tazobactam Sod 3.375 gm/Sodium Chloride 50 ml @ 100 mls/hr Q6HRS 06/10/18 17:30 06/16/18 11:20 DC 06/16/18 05:27 100 MLS/HR Potassium Chloride (Klor-Con) 40 meq 1X ONCE 06/18/18 12:00 06/18/18 12:01 DC 06/18/18 12:25 40 MEQ Prochlorperazine Edisylate (Compazine) 5 mg PACU PRN PRN 06/20/18 07:00 06/20/18 20:00 DC Propofol 20 ml @ As Directed STK-MED ONCE 06/20/18 07:49 06/20/18 07:50 DC Protamine Sulfate (Protamine) 50 mg STK-MED ONCE 06/15/18 10:31 06/15/18 10:33 DC Ringer's Solution 1,000 ml @ 100 mls/hr Q10H 06/20/18 07:00 06/20/18 17:06 DC Rocuronium [place] (Zemuron) 50 mg STK-MED ONCE 06/15/18 08:48 06/15/18 08:49 DC Sevoflurane (Ultane) 60 ml STK-MED ONCE 06/20/18 07:48 06/20/18 07:49 DC Silver Sulfadiazine (Silvadene) 25 maricel STK-MED ONCE 06/20/18 07:21 06/20/18 08:21 DC Sodium Chloride 1,000 ml @ 100 mls/hr Q10H 06/15/18 13:00 Cancel Sodium Chloride (Normal Saline Flush) 3 ml QSHIFT PRN 06/15/18 12:15 Vancomycin HCl (Vanco Per Pharmacy) 1 each PRN DAILY PRN 06/10/18 16:45 06/12/18 13:51 DC 06/12/18 10:52 1 EACH Vancomycin HCl (Vancomycin Trough Level) 1 each 1X ONCE 06/12/18 17:30 06/12/18 17:31 Cancel Vancomycin HCl 1.5 gm/Sodium Chloride 500 ml @ 250 mls/hr Q24H 06/11/18 18:00 06/12/18 13:51 DC 06/11/18 18:03 250 MLS/HR Vancomycin HCl 2 gm/Sodium Chloride 500 ml @ 250 mls/hr 1X ONCE 06/10/18 17:30 06/10/18 19:29 DC 06/10/18 18:12 250 MLS/HR Zolpidem Tartrate (Ambien) 5 mg PRN QHS PRN 06/15/18 12:15 LAB Lab: Laboratory Tests Test 06/21/18 12:32 06/21/18 17:06 06/21/18 20:56 06/22/18 05:30 Glucose (Fingerstick) 149 mg/dL (70-99) 166 mg/dL (70-99) 194 mg/dL (70-99) Sodium Level 142 mmol/L (136-145) Potassium Level 4.0 mmol/L (3.5-5.1) Chloride Level 106 mmol/L (98-107) Carbon Dioxide Level 25 mmol/L (21-32) Anion Gap 11 (6-14) Blood Urea Nitrogen 35 mg/dL (8-26) Creatinine 1.7 mg/dL (0.7-1.3) Estimated GFR (Cockcroft-Gault) 39.1 Glucose Level 163 mg/dL (70-99) Calcium Level 8.5 mg/dL (8.5-10.1) Test 06/22/18 07:12 Glucose (Fingerstick) 137 mg/dL (70-99) MERLYN CORDOBA MD Jun 22, 2018 08:21
--- NOTE | 2018-06-22 08:39 | PDOC ---
Infectious Disease Note Subjective Subjective feeling good, ROS ROS no n/v/d/sob Vital Sign Vital Signs Vital Signs Date Time Temp Pulse Resp B/P (MAP) Pulse Ox O2 Delivery O2 Flow Rate FiO2 06/22/18 07:59 Room Air 06/22/18 07:00 98.4 66 17 141/63 (89) 97 98.4 Physical Exam PHYSICAL EXAM GENERAL: Propped up in bed, alert, NAD HEENT: Normal conjunctivae. Oral cavity: Pharynx pink and moist. LUNGS: Clear to auscultation. HEART: S1, S2. ABDOMEN: Nondistended, soft and nontender with bowel sounds present. EXTREMITIES: RLE edema, incisions well-approx. wound vac to right groin and right foot areas SKIN: Warm without rash. NEUROLOGIC: Alert, responds appropriately PIV - ok Labs Lab Laboratory Tests Test 06/21/18 12:32 06/21/18 17:06 06/21/18 20:56 06/22/18 05:30 Glucose (Fingerstick) 149 mg/dL (70-99) 166 mg/dL (70-99) 194 mg/dL (70-99) Sodium Level 142 mmol/L (136-145) Potassium Level 4.0 mmol/L (3.5-5.1) Chloride Level 106 mmol/L (98-107) Carbon Dioxide Level 25 mmol/L (21-32) Anion Gap 11 (6-14) Blood Urea Nitrogen 35 mg/dL (8-26) Creatinine 1.7 mg/dL (0.7-1.3) Estimated GFR (Cockcroft-Gault) 39.1 Glucose Level 163 mg/dL (70-99) Calcium Level 8.5 mg/dL (8.5-10.1) Test 06/22/18 07:12 Glucose (Fingerstick) 137 mg/dL (70-99) Micro ANAEROBIC-AEROBIC CULTURE Final Final report ANAEROBIC RES 1 Final Bacteroides vulgatus 3+ AEROBIC CULT Final Final report AEROBIC RES 1 Final Enterobacter cloacae 4+ AEROBIC RES 2 Final Klebsiella pneumoniae 4+ AEROBIC RES 3 Final Mixed skin berry 2+ ANTIMICROBIAL SUSCEPTIBILITY Final Comment S = Susceptible; I = Intermediate; R = Resistant P = Positive; N = Negative MICS are expressed in micrograms per mL Antibiotic RSLT#1 RSLT#2 RSLT#3 RSLT#4 Amoxicillin/Clavulanic Acid R>=32 S<=2 Ampicillin R>=32 Cefazolin R>=64 Cefepime S<=0.12 S<=0.12 CONTINUED ON NEXT PAGE RUN DATE: 06/17/18 PAGE 2 RUN TIME: 1497 [facility] [address] [place] [address] Wilfredo Cotto M.D., Pipe Fitter Supervisor SPEC: [id number] PATIENT: EVONNE DRUMMOND Ash [id number] ( Continued) Procedure Result ANTIMICROBIAL SUSCEPTIBILITY Final (continued) Ceftriaxone S<=0.25 Cefuroxime R =R S =2 Ciprofloxacin S<=0.25 S<=0.25 Ertapenem S<=0.12 S<=0.12 Gentamicin S<=1 S<=1 Imipenem S<=0.25 S<=0.25 Levofloxacin S<=0.12 S<=0.12 Meropenem S<=0.25 S<=0.25 Piperacillin/Tazobactam S<=4 Tetracycline S =2 S<=1 Tobramycin S<=1 S<=1 Trimethoprim/Sulfa S<=20 S<=20 GRAM STAIN Final Final report GRAM STAIN RES 1 Final Comment No white blood cells seen. GRAM STAIN RES 2 Final Gram positive cocci Rare seen GRAM STAIN RES 3 Final Comment Rare gram negative rods. Performed at: - [facility] [address], [place], [place] [id number] Supervisor Special Education: RANDY Aragon MD, Phone: [phone] END OF REPORT Objective Assessment Diabetic ulcer right foot with cellulitis, s/p I and D, excisional, skin and subcutaneous tissue by Dr. North, 06/12, intra-op cultures pending s/p Leg bypass and open toe amputation PAD Leukocytosis - post op and s/p Dexameth Diabetes with peripheral neuropathy Renal insufficiency - better Tobacco dependency HLD HTN COPD IFTIKHAR Plan Plan of Care Continue meropenem f/u cultures Local wound care Supportive care d/c on iv Invanz or meropenem wkly cbc, bun/cr, sed rate f/u with us in 2 wks ADRIANO HERNANDEZ MD Jun 22, 2018 08:39
[2018-06-22] MEDS: MULTIVITAMIN with MINERAL TABLET. PO SCH (09:23)
[2018-06-22] MEDS: LACTOBACILLUS RHAMNOSUS GG 1 CAPSULE. PO SCH ×2 (09:23→21:47)
[2018-06-22] MEDS: amLODIPine BESYLATE 5 MG TABLET PO SCH (09:23)
[2018-06-22] MEDS: GLIMEPIRIDE 2 MG TABLET. PO SCH (09:23)
[2018-06-22] MEDS: ASPIRIN 325 MG TABLET PO SCH (09:23)
--- NOTE | 2018-06-22 09:23 | NUR ---
SS following up with discharge planning. Pt's RN contacted SS and reported that Dr. Ramirez met with pt and is requesting that SS meet with pt again about going to [facility]. SS met with pt in room with pt's RN and discussed pt choice and asked pt where he wanted to go for intermediate unit. Pt reported that "he feels that this is never going to end and he would just go where the doctor told him to go." Pt expressed frustration and reported that he was just going to do what the doctor told him to. SS phoned and faxed referral to [facility], ; fax [phone]. [facility] coming to meet with pt in room to screen. SS will await acceptance decision and will proceed accordingly.
--- NOTE | 2018-06-22 09:42 | DS ---
DATE OF DISCHARGE: 06/22/2018 PRIMARY DIAGNOSIS: Diabetic foot infection. ADDITIONAL DIAGNOSES: 1. Peripheral arterial disease with revascularization of the right leg during the stay. 2. Acute renal failure, improved. 3. Chronic kidney disease. 4. Chronic obstructive pulmonary disease. 5. Hypertension. 6. Diabetes. 7. Hyperlipidemia. CHIEF COMPLAINT AND HISTORY OF PRESENT ILLNESS: This 77-year-old white male was admitted with right medial foot ulcer with cellulitis, extending 2/3 up to the mcmullen. He has been having some chills. He is not feeling good. SUMMARY OF STAY: The patient was admitted, treated with IV antibiotics throughout the stay with improvement in his cellulitis, was found to have significant PAD and underwent bypass surgery on the right leg. During the stay, he had a necrotic right ray amputation in addition of the great toe. He had again femoral to peroneal artery bypass surgery during the stay. Developed some acute kidney disease, which was improving by the time of discharge. Medicines were held during the stay related to the same including diuretics, metformin and Celebrex. Renal followed along during the stay. ID followed along and recommended meropenem at the time of discharge. He had a wound VAC in place and it was felt that he could go to long term for ongoing IV antibiotics and therapy and this was accomplished on the day of dismissal. DISPOSITION: The patient is discharged to long term. Please see orders there regarding diet, medication, activity, etc. We will continue to follow him there. MERLYN CORDOBA MD DR: NATALIA/iván JOB#: [id number] / [id number]
--- NOTE | 2018-06-22 10:45 | PDOC ---
Provider Note Provider Note Vascular S: Patient seen and examined in bed. No complaints. O: Awake and alert VSS Right leg prevena vac removed, incision dry and intact. Incision medial thigh and calf intact. Palpable graft pulse, foot warm. 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 Continue wound vac therapy. Continue ASA Continue antibiotics per infectious disease. May ambulate with front off-loading shoe. for discharge planning patient may discharge from a vascular standpoint. Follow up as scheduled with Dr. An Follow up in [facility] per their directions. CHALINO DE ANDA APRN Jun 22, 2018 10:45
[2018-06-22 11:17] VITALS: BP 159/72
--- NOTE | 2018-06-22 12:45 | PDOC ---
SUBJECTIVE ROS No complaints OBJECTIVE Vital Signs Vital Signs Date Time Temp Pulse Resp B/P (MAP) Pulse Ox O2 Delivery O2 Flow Rate FiO2 06/22/18 11:17 97.6 73 18 159/72 (101) 96 Room Air 97.6 I & 0 Intake and Output 06/22/18 07:00 Intake Total 1010 ml Output Total 300 ml Balance 710 ml Intake Oral 960 ml IV Total 50 ml Output Urine Total 300 ml # Voids 2 # Bowel Movements 1 PHYSICAL EXAM Physical Exam GENERAL: Propped up in bed, alert, NAD HEENT: Normal conjunctivae. Oral cavity: Pharynx pink and moist. LUNGS: Clear to auscultation. HEART: S1, S2. ABDOMEN: Nondistended, soft and nontender with bowel sounds present. EXTREMITIES: RLE edema, incisions well-approx. wound vac to right groin and right foot areas SKIN: Warm without rash. NEUROLOGIC: Alert, responds appropriately DIAGNOSIS/ASSESSMENT Assessment & Plan IFTIKHAR- ATN- multifactorial Improving down to 1.8 Continue to hold Diuretics, Cozaar and Celebrex DC IVF if Good PO intake Hypokalemia - normal K CKD stage 3 S/P RIGHT FEM-PERONEAL BYPASS S/P TOE AMP DM II HTN PAD ANEMIA- Hg stable Will sign off COMMENT/RELEVANT DATA Meds Current Medications Medications (Trade) Dose Ordered Sig/Svetlana Start Time Stop Time Status Last Admin Dose Admin Amlodipine Besylate (Norvasc) 2.5 mg DAILY 06/18/18 15:00 06/22/18 09:23 2.5 MG Aspirin (Kaley Aspirin) 325 mg DAILY 06/11/18 09:00 06/22/18 09:23 325 MG Atorvastatin Calcium (Lipitor) 40 mg HS 06/10/18 21:00 06/21/18 21:43 40 MG Bupivacaine HCl/ Epinephrine Bitart (Sensorcaine-Epi 0.25%-1:057277 Mpf) 30 ml STK-MED ONCE 06/15/18 07:06 06/15/18 08:07 DC 06/15/18 08:08 8 ML Cefazolin Sodium 1 gm/Sodium Chloride 500 ml @ 500 mls/hr ONCE ONCE 06/15/18 06:00 06/15/18 06:59 DC 06/15/18 08:08 Celecoxib (CeleBREX) 200 mg DAILY 06/11/18 09:00 06/18/18 11:17 DC 06/18/18 08:16 200 MG Cellulose (Surgicel Fibrillar 1x2) 1 each STK-MED ONCE 06/15/18 05:57 06/15/18 06:57 DC 06/15/18 10:32 1 EACH Daptomycin 500 mg/ Sodium Chloride 50 ml @ 100 mls/hr Q24H 06/12/18 16:00 06/17/18 08:26 DC 06/16/18 16:37 100 MLS/HR Daptomycin 540 mg/ Sodium Chloride 50 ml @ 100 mls/hr Q24H 06/12/18 14:00 06/12/18 14:00 DC Dexamethasone Sodium Phosphate (Decadron) 20 mg STK-MED ONCE 06/20/18 07:49 06/20/18 07:50 DC Dextrose (Dextrose 50%-Water Syringe) 12.5 gm PRN Q15MIN PRN 06/20/18 17:30 Diphenhydramine HCl (Benadryl) 25 mg PRN Q6HRS PRN 06/15/18 12:15 Docusate Sodium (Colace) 100 mg PRN BID PRN 06/15/18 12:15 Ephedrine Sulfate (Akovaz) 50 mg STK-MED ONCE 06/20/18 08:43 06/20/18 08:44 DC Fentanyl Citrate (Fentanyl 2ml Vial) 100 mcg STK-MED ONCE 06/20/18 07:49 06/20/18 07:50 DC Furosemide (Lasix) 40 mg DAILY 06/11/18 09:00 06/18/18 11:17 DC 06/18/18 08:16 40 MG Glimepiride (Amaryl) 4 mg DAILY 06/11/18 09:00 06/22/18 09:23 4 MG Glycopyrrolate (Robinul) 1 mg STK-MED ONCE 06/15/18 10:52 06/15/18 10:53 DC Heparin Sodium (Porcine) (Heparin Sodium) 10,000 unit STK-MED ONCE 06/14/18 14:11 06/14/18 14:13 DC Heparin Sodium (Porcine) 5000 unit/Sodium Chloride 505 ml @ 505 mls/hr ONCE ONCE 06/15/18 06:00 06/15/18 06:59 DC 06/15/18 08:08 Heparin Sodium/ Sodium Chloride (HEPARIN for ARTERIAL LINE FLUSH) 1,000 unit 1X ONCE 06/14/18 14:15 06/14/18 14:27 DC 06/14/18 14:51 1,000 UNIT Hydralazine HCl (Apresoline Inj) 5 mg PRN Q4HRS PRN 06/15/18 12:15 06/18/18 04:00 5 MG Hydrochlorothiazide (Microzide) 12.5 mg DAILY 06/11/18 09:00 06/18/18 11:17 DC 06/18/18 08:16 12.5 MG Hydromorphone HCl (Dilaudid) 0.5 mg PRN Q10MIN PRN 06/20/18 07:00 06/20/18 20:00 DC Info (CONTRAST GIVEN -- Rx MONITORING) 1 each PRN DAILY PRN 06/14/18 14:30 06/16/18 14:29 DC Info (Non-Icu Electrolyte Protocol) 1 ea DAILY 06/16/18 09:00 06/22/18 07:29 1 EA Insulin Human Lispro (HumaLOG) 5 units 1X ONCE 06/20/18 23:00 06/20/18 23:01 DC 06/20/18 22:34 5 UNITS Iodixanol (Visipaque 320) 100 ml 1X ONCE 06/14/18 14:15 06/14/18 14:27 DC 06/14/18 14:52 54 ML Iohexol (Omnipaque 300 Mg/ml) 100 ml STK-MED ONCE 06/15/18 05:57 06/15/18 06:57 DC 06/15/18 08:08 50 ML Labetalol HCl (Normodyne Iv Push) 10 mg PRN Q2HR PRN 06/15/18 12:15 Lactobacillus Rhamnosus (Culturelle) 1 cap BID 06/12/18 21:00 06/22/18 09:23 1 CAP Lidocaine HCl 20 ml STK-MED ONCE 06/20/18 07:21 06/20/18 08:21 DC Lidocaine HCl (Lidocaine 1% 20ml Vial) 20 ml 1X ONCE 06/14/18 15:00 06/14/18 15:01 DC 06/14/18 14:54 20 ML Lidocaine HCl (Lidocaine Pf 2% Vial) 5 ml STK-MED ONCE 3/18/19 07:49 06/20/18 07:50 DC Lidocaine HCl (Xylocaine-Mpf 1% 2ml Vial) 2 ml PRN 1X PRN 06/20/18 07:00 06/20/18 20:00 DC Losartan Potassium (Cozaar) 100 mg DAILY 06/11/18 09:00 06/18/18 11:17 DC 06/18/18 08:17 100 MG Meropenem 500 mg/ Sodium Chloride 50 ml @ 100 mls/hr Q8HRS 06/16/18 12:00 06/22/18 05:21 100 MLS/HR Metformin HCl (Glucophage) 500 mg BIDWMEALS 06/10/18 17:30 06/18/18 12:00 DC 06/18/18 08:16 500 MG Midazolam HCl (Versed) 5 mg 1X ONCE 06/14/18 14:15 06/14/18 14:27 DC 06/14/18 14:53 1 MG Morphine Sulfate (Morphine Sulfate) 1 mg PRN Q10MIN PRN 06/20/18 07:00 06/20/18 20:00 DC Multivitamins (Thera M Plus) 1 tab DAILY 06/13/18 10:00 06/22/18 09:23 1 TAB Naloxone HCl (Narcan) 0.1 mg PRN Q2MIN PRN 06/15/18 12:15 Neostigmine Methylsulfate (Bloxiverz) 10 mg STK-MED ONCE 06/15/18 10:52 06/15/18 10:53 DC Nicotine (Nicoderm Cq 21mg) 1 patch PRN DAILY PRN 06/10/18 18:45 Non-Formulary Medication (Empagliflozin (Jardiance)) 25 mg DAILY 06/11/18 09:00 06/13/18 07:26 DC Non-Formulary Medication (Valsartan/ Hydrochlorothiazide (Diovan Hct 160-12.5 Mg Tab)) 1 each DAILY 06/11/18 09:00 UNV Ondansetron HCl (Zofran) 4 mg STK-MED ONCE 06/20/18 07:49 06/20/18 07:50 DC Oxycodone HCl (Roxicodone) 5 mg PRN Q3HRS PRN 06/15/18 12:15 06/21/18 15:25 5 MG Oxycodone/ Acetaminophen (Percocet 5/325) 2 tab PRN Q4HRS PRN 06/15/18 12:15 Phenylephrine HCl (Bobby-Synephrine Inj) 10 mg STK-MED ONCE 06/20/18 09:01 06/20/18 09:02 DC Piperacillin Sod/ Tazobactam Sod 3.375 gm/Sodium Chloride 50 ml @ 100 mls/hr Q6HRS 06/10/18 17:30 06/16/18 11:20 DC 06/16/18 05:27 100 MLS/HR Potassium Chloride (Klor-Con) 40 meq 1X ONCE 06/18/18 12:00 06/18/18 12:01 DC 06/18/18 12:25 40 MEQ Prochlorperazine Edisylate (Compazine) 5 mg PACU PRN PRN 06/20/18 07:00 06/20/18 20:00 DC Propofol 20 ml @ As Directed STK-MED ONCE 06/20/18 07:49 06/20/18 07:50 DC Protamine Sulfate (Protamine) 50 mg STK-MED ONCE 06/15/18 10:31 06/15/18 10:33 DC Ringer's Solution 1,000 ml @ 100 mls/hr Q10H 06/20/18 07:00 06/20/18 17:06 DC Rocuronium [place] (Zemuron) 50 mg STK-MED ONCE 06/15/18 08:48 06/15/18 08:49 DC Sevoflurane (Ultane) 60 ml STK-MED ONCE 06/20/18 07:48 06/20/18 07:49 DC Silver Sulfadiazine (Silvadene) 25 maricel STK-MED ONCE 06/20/18 07:21 06/20/18 08:21 DC Sodium Chloride 1,000 ml @ 100 mls/hr Q10H 06/15/18 13:00 Cancel Sodium Chloride (Normal Saline Flush) 3 ml QSHIFT PRN 06/15/18 12:15 Vancomycin HCl (Vanco Per Pharmacy) 1 each PRN DAILY PRN 06/10/18 16:45 06/12/18 13:51 DC 06/12/18 10:52 1 EACH Vancomycin HCl (Vancomycin Trough Level) 1 each 1X ONCE 06/12/18 17:30 06/12/18 17:31 Cancel Vancomycin HCl 1.5 gm/Sodium Chloride 500 ml @ 250 mls/hr Q24H 06/11/18 18:00 06/12/18 13:51 DC 06/11/18 18:03 250 MLS/HR Vancomycin HCl 2 gm/Sodium Chloride 500 ml @ 250 mls/hr 1X ONCE 06/10/18 17:30 06/10/18 19:29 DC 06/10/18 18:12 250 MLS/HR Zolpidem Tartrate (Ambien) 5 mg PRN QHS PRN 06/15/18 12:15 Lab Laboratory Tests Test 06/21/18 17:06 06/21/18 20:56 06/22/18 05:30 06/22/18 07:12 Glucose (Fingerstick) 166 mg/dL (70-99) 194 mg/dL (70-99) 137 mg/dL (70-99) Sodium Level 142 mmol/L (136-145) Potassium Level 4.0 mmol/L (3.5-5.1) Chloride Level 106 mmol/L (98-107) Carbon Dioxide Level 25 mmol/L (21-32) Anion Gap 11 (6-14) Blood Urea Nitrogen 35 mg/dL (8-26) Creatinine 1.7 mg/dL (0.7-1.3) Estimated GFR (Cockcroft-Gault) 39.1 Glucose Level 163 mg/dL (70-99) Calcium Level 8.5 mg/dL (8.5-10.1) Test 06/22/18 11:17 Glucose (Fingerstick) 160 mg/dL (70-99) Results All relevant outside records, renal labs, imaging studies, telemetry/EKG's were reviewed. DONTRELL ARAGON MD Jun 22, 2018 12:45
[2018-06-22 14:57] VITALS: BP 134/48
--- NOTE | 2018-06-22 15:37 | NUR ---
YURY following. Discussed with RN. Swathi from [facility] advised they cannot afford pt's diabetes medication and also can't get the wound vac until tomorrow. [facility] also can only get the wound vac tomorrow (06/23/18). YURY spoke with Larry Walters ([employer] consultant), Larry to check with Dr. Ramirez. YURY met with pt, pt reported he does not have anyone who can bring the medication from home, and at this point doesn't care as much where he goes, he is now wondering when he is going to go home. YURY advised pt of the situation. YURY contacted Scarlett ([phone]) at [facility] to discuss discharge, Scarlett wanted confirmation of wound vac before ordering. YURY will continue to follow. RN notified.
[2018-06-22 19:12] VITALS: BP 133/62
[2018-06-22] MEDS: ATORVASTATIN CALCIUM 40 MG TABLET. PO SCH (21:47)
[2018-06-22 22:43] VITALS: BP 158/70
[2018-06-23 03:36] VITALS: BP 157/70
[2018-06-23] MEDS: MEROPENEM 500 MG in IV NORMAL SALINE 50ML 50 ML IV SCH (06:01)
[2018-06-23 07:00] VITALS: BP 155/70
[2018-06-23] MEDS: INSULIN LISPRO 300 UNITS/3 ML INSULN.PEN. SQ SCH ×2 (07:30→11:30)
--- NOTE | 2018-06-23 08:39 | PDOC ---
GENERAL General: exam stable. ready of discharge. yesterday's dc orders accurate and dc summary accurate. VITAL SIGNS Vital Signs: Vital Signs Date Time Temp Pulse Resp B/P (MAP) Pulse Ox O2 Delivery O2 Flow Rate FiO2 06/23/18 07:00 98.1 63 17 155/70 (98) 97 Room Air 98.1 I & O I & O Intake and Output 06/23/18 06:59 Intake Total 840 ml Output Total 350 ml Balance 490 ml Intake Oral 840 ml Output Urine Total 350 ml # Voids 4 # Bowel Movements 1 ALLERGIES Allergies: Allergies Coded Allergies Type Severity Reaction Last Updated Verified No Known Drug Allergies 06/10/18 No MEDS Medications: Current Medications Medications (Trade) Dose Ordered Sig/Svetlana Start Time Stop Time Status Last Admin Dose Admin Amlodipine Besylate (Norvasc) 2.5 mg DAILY 06/18/18 15:00 06/22/18 09:23 2.5 MG Aspirin (Kaley Aspirin) 325 mg DAILY 06/11/18 09:00 06/22/18 09:23 325 MG Atorvastatin Calcium (Lipitor) 40 mg HS 06/10/18 21:00 06/22/18 21:47 40 MG Bupivacaine HCl/ Epinephrine Bitart (Sensorcaine-Epi 0.25%-1:500218 Mpf) 30 ml STK-MED ONCE 06/15/18 07:06 06/15/18 08:07 DC 06/15/18 08:08 8 ML Cefazolin Sodium 1 gm/Sodium Chloride 500 ml @ 500 mls/hr ONCE ONCE 06/15/18 06:00 06/15/18 06:59 DC 06/15/18 08:08 Celecoxib (CeleBREX) 200 mg DAILY 06/11/18 09:00 06/18/18 11:17 DC 06/18/18 08:16 200 MG Cellulose (Surgicel Fibrillar 1x2) 1 each STK-MED ONCE 06/15/18 05:57 06/15/18 06:57 DC 06/15/18 10:32 1 EACH Daptomycin 500 mg/ Sodium Chloride 50 ml @ 100 mls/hr Q24H 06/12/18 16:00 06/17/18 08:26 DC 06/16/18 16:37 100 MLS/HR Daptomycin 540 mg/ Sodium Chloride 50 ml @ 100 mls/hr Q24H 06/12/18 14:00 06/12/18 14:00 DC Dexamethasone Sodium Phosphate (Decadron) 20 mg STK-MED ONCE 06/20/18 07:49 06/20/18 07:50 DC Dextrose (Dextrose 50%-Water Syringe) 12.5 gm PRN Q15MIN PRN 06/20/18 17:30 Diphenhydramine HCl (Benadryl) 25 mg PRN Q6HRS PRN 06/15/18 12:15 Docusate Sodium (Colace) 100 mg PRN BID PRN 06/15/18 12:15 Ephedrine Sulfate (Akovaz) 50 mg STK-MED ONCE 06/20/18 08:43 06/20/18 08:44 DC Fentanyl Citrate (Fentanyl 2ml Vial) 100 mcg STK-MED ONCE 06/20/18 07:49 06/20/18 07:50 DC Furosemide (Lasix) 40 mg DAILY 06/11/18 09:00 06/18/18 11:17 DC 06/18/18 08:16 40 MG Glimepiride (Amaryl) 4 mg DAILY 06/11/18 09:00 06/22/18 09:23 4 MG Glycopyrrolate (Robinul) 1 mg STK-MED ONCE 06/15/18 10:52 06/15/18 10:53 DC Heparin Sodium (Porcine) (Heparin Sodium) 10,000 unit STK-MED ONCE 06/14/18 14:11 06/14/18 14:13 DC Heparin Sodium (Porcine) 5000 unit/Sodium Chloride 505 ml @ 505 mls/hr ONCE ONCE 06/15/18 06:00 06/15/18 06:59 DC 06/15/18 08:08 Heparin Sodium/ Sodium Chloride (HEPARIN for ARTERIAL LINE FLUSH) 1,000 unit 1X ONCE 06/14/18 14:15 06/14/18 14:27 DC 06/14/18 14:51 1,000 UNIT Hydralazine HCl (Apresoline Inj) 5 mg PRN Q4HRS PRN 06/15/18 12:15 06/18/18 04:00 5 MG Hydrochlorothiazide (Microzide) 12.5 mg DAILY 06/11/18 09:00 06/18/18 11:17 DC 06/18/18 08:16 12.5 MG Hydromorphone HCl (Dilaudid) 0.5 mg PRN Q10MIN PRN 06/20/18 07:00 06/20/18 20:00 DC Info (CONTRAST GIVEN -- Rx MONITORING) 1 each PRN DAILY PRN 06/14/18 14:30 06/16/18 14:29 DC Info (Non-Icu Electrolyte Protocol) 1 ea DAILY 06/16/18 09:00 06/22/18 07:29 1 EA Insulin Human Lispro (HumaLOG) 5 units 1X ONCE 06/20/18 23:00 06/20/18 23:01 DC 06/20/18 22:34 5 UNITS Iodixanol (Visipaque 320) 100 ml 1X ONCE 06/14/18 14:15 06/14/18 14:27 DC 06/14/18 14:52 54 ML Iohexol (Omnipaque 300 Mg/ml) 100 ml STK-MED ONCE 06/15/18 05:57 06/15/18 06:57 DC 06/15/18 08:08 50 ML Labetalol HCl (Normodyne Iv Push) 10 mg PRN Q2HR PRN 06/15/18 12:15 Lactobacillus Rhamnosus (Culturelle) 1 cap BID 06/12/18 21:00 06/22/18 21:47 1 CAP Lidocaine HCl 20 ml STK-MED ONCE 06/20/18 07:21 06/20/18 08:21 DC Lidocaine HCl (Lidocaine 1% 20ml Vial) 20 ml 1X ONCE 06/14/18 15:00 06/14/18 15:01 DC 06/14/18 14:54 20 ML Lidocaine HCl (Lidocaine Pf 2% Vial) 5 ml STK-MED ONCE 06/20/18 07:49 06/20/18 07:50 DC Lidocaine HCl (Xylocaine-Mpf 1% 2ml Vial) 2 ml PRN 1X PRN 06/20/18 07:00 06/20/18 20:00 DC Losartan Potassium (Cozaar) 100 mg DAILY 06/11/18 09:00 06/18/18 11:17 DC 06/18/18 08:17 100 MG Meropenem 500 mg/ Sodium Chloride 50 ml @ 100 mls/hr Q8HRS 06/16/18 12:00 06/23/18 06:01 100 MLS/HR Metformin HCl (Glucophage) 500 mg BIDWMEALS 06/10/18 17:30 06/18/18 12:00 DC 06/18/18 08:16 500 MG Midazolam HCl (Versed) 5 mg 1X ONCE 06/14/18 14:15 06/14/18 14:27 DC 06/14/18 14:53 1 MG Morphine Sulfate (Morphine Sulfate) 1 mg PRN Q10MIN PRN 06/20/18 07:00 06/20/18 20:00 DC Multivitamins (Thera M Plus) 1 tab DAILY 06/13/18 10:00 06/22/18 09:23 1 TAB Naloxone HCl (Narcan) 0.1 mg PRN Q2MIN PRN 06/15/18 12:15 Neostigmine Methylsulfate (Bloxiverz) 10 mg STK-MED ONCE 06/15/18 10:52 06/15/18 10:53 DC Nicotine (Nicoderm Cq 21mg) 1 patch PRN DAILY PRN 06/10/18 18:45 Non-Formulary Medication (Empagliflozin (Jardiance)) 25 mg DAILY 06/11/18 09:00 06/13/18 07:26 DC Non-Formulary Medication (Valsartan/ Hydrochlorothiazide (Diovan Hct 160-12.5 Mg Tab)) 1 each DAILY 06/11/18 09:00 UNV Ondansetron HCl (Zofran) 4 mg STK-MED ONCE 06/20/18 07:49 06/20/18 07:50 DC Oxycodone HCl (Roxicodone) 5 mg PRN Q3HRS PRN 06/15/18 12:15 06/21/18 15:25 5 MG Oxycodone/ Acetaminophen (Percocet 5/325) 2 tab PRN Q4HRS PRN 06/15/18 12:15 Phenylephrine HCl (Bobby-Synephrine Inj) 10 mg STK-MED ONCE 06/20/18 09:01 06/20/18 09:02 DC Piperacillin Sod/ Tazobactam Sod 3.375 gm/Sodium Chloride 50 ml @ 100 mls/hr Q6HRS 06/10/18 17:30 06/16/18 11:20 DC 06/16/18 05:27 100 MLS/HR Potassium Chloride (Klor-Con) 40 meq 1X ONCE 06/18/18 12:00 06/18/18 12:01 DC 06/18/18 12:25 40 MEQ Prochlorperazine Edisylate (Compazine) 5 mg PACU PRN PRN 06/20/18 07:00 06/20/18 20:00 DC Propofol 20 ml @ As Directed STK-MED ONCE 06/20/18 07:49 06/20/18 07:50 DC Protamine Sulfate (Protamine) 50 mg STK-MED ONCE 06/15/18 10:31 06/15/18 10:33 DC Ringer's Solution 1,000 ml @ 100 mls/hr Q10H 06/20/18 07:00 06/20/18 17:06 DC Rocuronium [place] (Zemuron) 50 mg STK-MED ONCE 06/15/18 08:48 06/15/18 08:49 DC Sevoflurane (Ultane) 60 ml STK-MED ONCE 06/20/18 07:48 06/20/18 07:49 DC Silver Sulfadiazine (Silvadene) 25 maricel STK-MED ONCE 06/20/18 07:21 06/20/18 08:21 DC Sodium Chloride 1,000 ml @ 100 mls/hr Q10H 06/15/18 13:00 Cancel Sodium Chloride (Normal Saline Flush) 3 ml QSHIFT PRN 06/15/18 12:15 Vancomycin HCl (Vanco Per Pharmacy) 1 each PRN DAILY PRN 06/10/18 16:45 06/12/18 13:51 DC 06/12/18 10:52 1 EACH Vancomycin HCl (Vancomycin Trough Level) 1 each 1X ONCE 06/12/18 17:30 06/12/18 17:31 Cancel Vancomycin HCl 1.5 gm/Sodium Chloride 500 ml @ 250 mls/hr Q24H 06/11/18 18:00 06/12/18 13:51 DC 06/11/18 18:03 250 MLS/HR Vancomycin HCl 2 gm/Sodium Chloride 500 ml @ 250 mls/hr 1X ONCE 06/10/18 17:30 06/10/18 19:29 DC 06/10/18 18:12 250 MLS/HR Zolpidem Tartrate (Ambien) 5 mg PRN QHS PRN 06/15/18 12:15 LAB Lab: Laboratory Tests Test 06/22/18 11:17 06/22/18 16:52 06/22/18 20:53 06/23/18 07:34 Glucose (Fingerstick) 160 mg/dL (70-99) 154 mg/dL (70-99) 138 mg/dL (70-99) 139 mg/dL (70-99) MERLYN CORDOBA MD Jun 23, 2018 08:39
[2018-06-23] MEDS: ELECTROLYTE (NON-ICU) PROTOCOL MC SCH (09:00)
[2018-06-23] MEDS: MULTIVITAMIN with MINERAL TABLET. PO SCH (09:07)
[2018-06-23] MEDS: LACTOBACILLUS RHAMNOSUS GG 1 CAPSULE. PO SCH (09:07)
[2018-06-23] MEDS: ASPIRIN 325 MG TABLET PO SCH (09:07)
[2018-06-23] MEDS: amLODIPine BESYLATE 5 MG TABLET PO SCH (09:08)
[2018-06-23] MEDS: GLIMEPIRIDE 2 MG TABLET. PO SCH (09:09)
--- NOTE | 2018-06-23 10:51 | NUR ---
SS following up with discharge planning. [facility], ; fax [phone], verified that they will have pt's wound vac this morning. Discharge orders phoned and faxed to [facility]. Pt will discharge today and go to [facility] at 1400. [facility] to provide transport. Pt and pt's RN notified.
[2018-06-23 11:00] VITALS: BP 165/75
--- NOTE | 2018-06-23 12:19 | NUR ---
Wound Care: Pt is dc'ing today, spoke with Scarlett LAW to picture and measure wound prior to DC, remove wound vac, and apply wet to dry dressing.
[2018-06-23 15:19] VITALS: BP 165/73
--- NOTE | 2018-06-23 15:56 | NUR ---
Discharge Note: EVONNE DRUMMOND Discharge instructions and discharge home medications reviewed with [facility] RN and a copy given. All questions have been answered and understanding verbalized. Right upper arm PICC in place upon DC from hospital. [facility] nurse aware of all follow up appointments and pt need for wound vac as soon as he gets to facility.
== END 2018-06-23 14:00 | DRG 616 ==
LOC: 5 NORTH 14:37 → 5 SOUTH 06-13 01:10 → 2 NORTH 06-15 13:30
PROVIDERS: ADMIT Family Medicine; ATTEND Family Medicine
PROC: 0JBQ0ZZ Excision of Right Foot Subcutaneous Tissue and Fascia, Open Approach (ICD-10-PCS; principal; 2018-06-12 08:00)
PROC: 0Y6P0Z0 Detachment at Right 1st Toe, Complete, Open Approach (ICD-10-PCS; 2018-06-15)
PROC: 041K09M Bypass Right Femoral Artery to Peroneal Artery with Autologous Venous Tissue, Open Approach (ICD-10-PCS; 2018-06-15)
PROC: 04CK0ZZ Extirpation of Matter from Right Femoral Artery, Open Approach (ICD-10-PCS; 2018-06-15)
PROC: B41D1ZZ Fluoroscopy of Aorta and Bilateral Lower Extremity Arteries using Low Osmolar Contrast (ICD-10-PCS; 2018-06-15 07:30)
PROC: 0QBN0ZZ Excision of Right Metatarsal, Open Approach (ICD-10-PCS; 2018-06-20)
DX: E11.621 Type 2 diabetes mellitus with foot ulcer (principal); E43 Unspecified severe protein-calorie malnutrition; L03.115 Cellulitis of right lower limb; E11.52 Type 2 diabetes mellitus with diabetic peripheral angiopathy with gangrene; I70.261 Atherosclerosis of native arteries of extremities with gangrene, right leg; N17.0 Acute kidney failure with tubular necrosis; E11.42 Type 2 diabetes mellitus with diabetic polyneuropathy; L97.519 Non-pressure chronic ulcer of other part of right foot with unspecified severity; N18.9 Chronic kidney disease, unspecified; I12.9 Hypertensive chronic kidney disease with stage 1 through stage 4 chronic kidney disease, or unspecified chronic kidney disease; J44.9 Chronic obstructive pulmonary disease, unspecified; N18.3 Chronic kidney disease, stage 3 (moderate); E78.5 Hyperlipidemia, unspecified; E11.22 Type 2 diabetes mellitus with diabetic chronic kidney disease; E11.628 Type 2 diabetes mellitus with other skin complications; M19.90 Unspecified osteoarthritis, unspecified site; F17.210 Nicotine dependence, cigarettes, uncomplicated; E87.6 Hypokalemia; D64.9 Anemia, unspecified; Z83.3 Family history of diabetes mellitus; N14.1 Nephropathy induced by other drugs, medicaments and biological substances; Z82.49 Family history of ischemic heart disease and other diseases of the circulatory system; Z89.429 Acquired absence of other toe(s), unspecified side; Z66 Do not resuscitate; Z68.31 Body mass index [BMI] 31.0-31.9, adult
CPT/HCPCS: 36245; 36415; 36569; 73630; 75710; 76000; 76937; 80048; 80053; 81001; 82565; 82962; 83735; 84100; 84145; 84520; 85025; 85027; 85347; 85610; 85651; 86850; 86900; 86901; 87071; 87075; 87086; 87186; 88305; 88311; 93306; 93925; 93970; 99152; 99153; A7015; C1757; C1760; C1769; C1892; C1894; G0269; J0360; J0690; J0878; J1100; J1644; J1815; J2001; J2185; J2250; J2270; J2405; J2543; J2704; J2710; J3010; J3370; J3490; J7030; J7040; J7050; J7120; Q9967; 97110; 97116; 97530; 97535; A4461; C1771